=== PATIENT | male | born 1945 | race Caucasian/White ===

== ENCOUNTER 2024-11-09 16:51 | Inpatient (IN) | payer MEDICARE, OTHER, SELFPAY ==
--- NOTE | 2024-11-09 16:57 | CON.CAR ---
Addendum entered and electronically signed by Mitzi Curtis MD 11/09/24 19:59:
I saw and examined the patient.
The [employer]ato Panc[employer] Frier's note was reviewed and I agree with the note.
Comment: Patient is a 79-year-old gentleman with past medical history of hypertension, hyperlipidemia, morbid obesity, type 2 diabetes mellitus, recent admissions to [facility] for hematemesis found to have superficial duodenal ulcers and
Smith's esophagus in September 2024 and for diverticulitis from October 08 until the 04/27/2024 with 3 presentation on November 08, 2024 after being woken up with pressing sensation in the chest and paresthesias. He walked to the bathroom and then
after using the bathroom had a fall and call for help. Given ongoing chest pain he was taken to the emergency room. He was admitted there and treated for a type I NSTEMI with troponin high-sensitivity peaking at 414. He was given 300 mg of Plavix
x 1 on November 08, 2024 and underwent heart catheterization today which revealed multivessel coronary artery disease and is now being transferred here for CABG evaluation. He is currently chest pain-free.
On exam patient is well-appearing, morbidly obese, in no acute distress, regular rate, normal S1 and S2, right radial band is still in place, decreased breath sounds at the bases, otherwise clear, mild JVD, abdomen is obese, soft, nontender,
nondistended with active bowel sounds, warm extremities
Recommendations:
1. Continue treatment for presenting NSTEMI with daily baby aspirin. Given statin allergy, will trial Zetia, beta-evelyn as tolerated.
2. Plavix is on hold and awaiting Plavix washout.
3. CT surgery will be consulted to evaluate for possible CABG.
Mitzi Curtis MD, [facility], [facility]
Original Note:
Consultation
Consultation Request
Date/Time Consultation Requested: 11/09/24
Date/Time Consultation Performed: 11/09/24
Reason for Consultation: Transfer from [facility] for multivessel CAD
Medical History
-
History of Present Illness:
Patient presents to as a transfer from [facility] for evaluation of MV CAD and cardiology has been consulted. Patient was admitted to [facility] 09/2024 with hematemesis and was found to have duodenal ulcers on EGD and evidence of Smith's esophagus at that
time. Patient then had another admission to [facility] but this time for diverticulitis from 10/08/2024 until 10/13/2024 and afterwards went to [facility] and was discharged to home 11/06/2024. Patient says that he was in his apartment and early
yesterday morning at about 3 AM awoke with a pressing sensation on his chest and paresthesias. He ambulated to the bathroom and then after using the bathroom had a fall and called for help. Despite help of bystanders he had 2 more falls before he
finally went to bed and then awoke with ongoing chest pain and was taken to [facility] ER. He was admitted and on ECG there was concern for inferior ST changes and his initial troponin was positive and ultimately peaked at 414 consistent with NSTEMI.
Patient was given Plavix 300 mg p.o. x 1 on 11/08/2024 and then had cardiac catheterization today that revealed MV CAD as noted above. Patient denies chest pain currently and remains on heparin drip. He was transferred to for evaluation for
possible CABG.
PMH:
Recent admission to [facility] for hematemesis and superficial duodenal ulcers 09/2024
Recent admission to [facility] for diverticulitis 10/08/2024 until 10/13/2024
DM2
HTN
Hyperlipidemia
Past Medical History
Past Medical History: Other (in HPI)
Past Surgical History: Orthopedic
Social History
Tobacco: Former Smoker
Alcohol: None
Drug: None
Family History
Family History: Reviewed & Not Pertinent
Allergies / Home Medications
Patient reports allergy to statin medications that they cause hives
Medications at home prior to admission:
Farxiga 5 mg daily
Zetia 10 mg daily
Gemfibrozil 600 mg twice daily
Lisinopril 20 mg daily
Myrbetriq 50 mg daily
Januvia 100 mg daily
Tamsulosin 0.4 mg daily
Melatonin 5 mg at bedtime as needed sleep
Insulin glargine 40 units subcu twice daily
Finasteride 1 mg daily
Insulin aspart unknown dose twice daily
Toprol-XL 50 mg daily
Protonix 40 mg daily
Levaquin 750 mg daily for 7 days initially started on 10/13/2024, should have been completed by now
Metronidazole 500 mg every 8 hours x 7 days that was started on 10/13/2024 and also she has been completed by now
Review of Systems
-
History Source: Patient
All other systems: Negative unless noted
Physical Exam
Vital Signs
GEN: NAD, AAOx3
HEENT: EOMI, MMM
LUNGS: RA. CTA B/L, no wheezes/rales
CV: Reg, S1/S2, no murmur
ABD: soft, BS+, NT, ND
EXT: Right radial band in place. No clubbing, cyanosis, lesions or edema B/L
NEURO: Gross non-focal
SKIN: No rash
Lab Results
Labs 11/08/2024: Hemoglobin 14, WBC 13.5, platelet 214,000
Chemistry BUN 31, creatinine 1.02, sodium 138, potassium 4.5, blood sugar 175
AST 18, ALT 15
Troponin T peak 414
Impression / Plan
-
PCP: Dr. Amando Feliciano
Cardiology: None prior to admission, seen initially by [facility] and then cathed by Dr. Dyllan Fox
Impression:
Admitted to [facility] with chest pain and ACS 11/08/2024
Transferred to for evaluation of MV CAD 11/09/2024
NSTEMI, peak troponin T at [facility] 414
Multivessel CAD by cath 11/09/2024
heavily calcified LAD and 70 to 80% proximal lesion before first septal clay washer and then focal 89% mid LAD lesion, major diagonal with normal flow, OM�160 to 70% lesion that appears to be healed ruptured plaque with normal distal flow appears to
be good surgical target, OM�2 moderate diffuse nonobstructive disease up to 40%, RCA appears to be culprit vessel with complex preocclusive 95% stenosis with clot by cath 11/09/2024
Recent admission to [facility] for hematemesis and superficial duodenal ulcers 09/2024
Recent admission to [facility] for diverticulitis 10/08/2024 until 10/13/2024
DM2
HTN
Hyperlipidemia
Echo 11/08/2024: [facility] study, EF 55 to 60%, normal RV size and function, no AAS, small anterior pericardial effusion with prominent pericardial fat pad
Plan:
-Patient presents to as a transfer from [facility] for evaluation of MV CAD and cardiology has been consulted. Patient was admitted to [facility] 09/2024 with hematemesis and was found to have duodenal ulcers on EGD and evidence of Smith's esophagus at that
time. Patient then had another admission to [facility] but this time for diverticulitis from 10/08/2024 until 10/13/2024 and afterwards went to [facility] and was discharged to home 11/06/2024. Patient says that he was in his apartment and early
yesterday morning at about 3 AM awoke with a pressing sensation on his chest and paresthesias. He ambulated to the bathroom and then after using the bathroom had a fall and called for help. Despite help of bystanders he had 2 more falls before he
finally went to bed and then awoke with ongoing chest pain and was taken to [facility] ER. He was admitted and on ECG there was concern for inferior ST changes and his initial troponin was positive and ultimately peaked at 414 consistent with NSTEMI.
Patient was given Plavix 300 mg p.o. x 1 on 11/08/2024 and then had cardiac catheterization today that revealed MV CAD as noted above. Patient denies chest pain currently and remains on heparin drip. He was transferred to for evaluation for
possible CABG.
-ECG from [facility] reviewed by me and there are inferior ST changes
-Admit to IVU
-Continue heparin drip at current rate
-Radial band remains in place and will continue to monitor and wean as able
-Echo report noted above and will attempt to transfer images
-Cardiac cath report noted above and will attempt to transfer images
-Will ask the CT surgery team to see the patient
-Check hemoglobin A1c
-Patient will be followed with basal bolus insulin
-Check CVE. Patient reports an allergy to statin medications that they cause a rash. Will start Zetia 10 mg daily for now and then likely push to start statin under close supervision.
[2024-11-09 16:58] VITALS: BP 119/90
[2024-11-09 17:07] VITALS: BMI 32.3
--- NOTE | 2024-11-09 17:49 | PTCARENOTE ---
Rec'd pt from [place] awake and alert with Left radial TR band in place. Air removed as per protocol. EKG done. Labs sent. Pt orientated to room 2254. Call peng given. Heparin infusing at 1400 units/hr. See worklist for VS/I and O and assessments.
[2024-11-09 17:52] LABS: % Basophils 0.6 % (0-2); % Immature Granulocytes 0.7 % (0-0.5); % Lymphocytes 40.3 % (20.5-51.1); % Monocytes 10.2 % (1.7-9.3); % Neutrophils 45.2 % (42.2-75.2); Absolute Basophils 0.1 10^3/uL (0-0.2); Absolute Eosinophils 0.3 10^3/uL (0-0.7); Absolute Immature Granulocytes 0.1 10^3/uL (0-0.05); Absolute Lymphocytes 3.6 10^3/uL (1.2-3.4); Absolute Monocytes 0.9 10^3/uL (0.1-0.6); Absolute Neutrophils 4.1 10^3/uL (1.4-6.5); Hemoglobin 13.5 g/dL (13.0-18.0); Mean Corp Hgb Conc. 32.9 g/dL (33.0-37.0); Mean Corpuscular Hgb 28.8 pg (27.0-31.0); Mean Corpuscular Volume 87.6 fL (80.0-94.0); Mean Platelet Volume 9.5 fL (7.4-10.4); Nucleated Red Blood Cells % 0 % (-); Platelet Count 226 10^3/uL (130-400); Red Blood Cell Count 4.68 10^6/uL (4.70-6.10)
--- NOTE | 2024-11-09 17:57 | CONSULT.CT ---
Consultation
-
Date/Time Consultation Requested: 11/09/24 1745
Date/Time Consultation Performed: 11/09/24 1800
Requesting Provider: Anu NOVOA
Performing Provider: Paulina SINGER for Olivia JEAN
Reason for Consultation: CABG eval
Patient History
Physicians
Family Physician: Dr. Drummond
Outpatient Pedicab Driver: None
Inpatient Pedicab Driver: Dr. Fox
History of Present Illness
79-year-old male with past medical history of type 2 diabetes, HTN, HLD, recent duodenal ulcers and diverticulitis transferred from [facility] for evaluation of multivessel coronary disease. Of note patient has multiple recent admissions to
[facility] starts on 10/08 when he was found to have diverticulitis and was discharged to a group home facility on 11/06. However patient said on the night of 11/07 patient woke up early in the morning with a pressing sensation on his
chest he ambulated to the bathroom and fell multiple times. He was taken to [facility]'s emergency room where they found inferior ST changes and elevated troponins. He was given 300 mg of Plavix p.o. on 11/08 and was taken to the cardiac
Accounting Intern today on 11/09. Left heart cath revealed multivessel disease and patient was transferred to [facility] for CABG evaluation.
Recent admission to [facility] for hematemesis and superficial duodenal ulcers 09/2024
Recent admission to [facility] for diverticulitis 10/08/2024 until 10/13/2024
Past Medical History
Past Medical History: CAD, HTN, Hypercholesterolemia, NIDDM and MN
Diverticulitis
Duodenal ulcers
Past Surgical History
Past Surgical History: Appendectomy, Orthopedic, Tonsilectomy and Urological (TURP)
Family History
Mother: Cause of ([place])
Father: Cause of ([place])
Family Medical History: CAD
Social History
Alcohol: None
Drug: None
Tobacco: Former Smoker
Personal:
Living: Assisted Living
Employment: Retired
Allergies
Allergy/AdvReac Type Severity Reaction Status Date / Time
Uupxqiz-[id number] Reductase Allergy Hives Verified 11/09/24 17:34
Inhibitor
Home Medications
Medications at home prior to admission:
Farxiga 5 mg daily
Zetia 10 mg daily
Gemfibrozil 600 mg twice daily
Lisinopril 20 mg daily
Myrbetriq 50 mg daily
Januvia 100 mg daily
Tamsulosin 0.4 mg daily
Melatonin 5 mg at bedtime as needed sleep
Insulin glargine 40 units subcu twice daily
Finasteride 1 mg daily
Insulin aspart unknown dose twice daily
Toprol-XL 50 mg daily
Protonix 40 mg daily
Levaquin 750 mg daily for 7 days initially started on 10/13/2024, should have been completed by now
Metronidazole 500 mg every 8 hours x 7 days that was started on 10/13/2024 and also she has been completed by now
Review of Systems
-
History Source: Patient
General: Reports No Symptoms
HEENT: Reports No Symptoms
Respiratory: Reports SOB
Cardiac: Reports Chest Pain
Abdomen/GI: Reports No Symptoms
: Reports No Symptoms
Musculoskeletal: Reports No Symptoms
Skin: Reports No Symptoms
Neurological: Reports No Symptoms
Vascular: Reports No Symptoms
Physical Exam
Vital Signs
Temp 97.5 F 11/09/24 16:59
Temp route: Oral 11/09/24 16:59
Pulse 63 11/09/24 17:00
Rhythm: Normal sinus rhythm 11/09/24 17:15
Resp Rate 18 11/09/24 16:59
Blood pressure 119/90 11/09/24 16:58
Blood pressure extremity used: Right upper arm 11/09/24 16:59
Position: Lying 11/09/24 16:59
MAP (cuff-Dee Dee Monitor) 99 11/09/24 16:58
SaO2 97 11/09/24 17:46
Oxygen Mode of Delivery Room air 11/09/24 17:46
Actual Weight 85.275 kg 11/09/24 17:07
Body Mass Index (BMI) 32.3 11/09/24 17:07
Labs
11/09/24 17:41
Exam
General: Well Developed, Well Nourished, No Apparent Distress and Comfortable
HEENT: Normocephalic
Respiratory: Clear
Cardiac: S1/S2
GI: Soft and Non Distended
Rectal: Deferred by Provider
Skin: Warm
Neuro: AO x 3 and No Motor Deficits
Extremities: Pulses (+1 b/L)
Lymph: No Lymphadenopathy
Psych: Calm
Assessment / Plan
-
79-year-old male with past medical history of was transferred to [facility] on 11/09 for CABG evaluation.
#CAD
-Patient's case will be discussed with attending physician. Further details regarding surgical timing intervention will be determined after attending physicians full evaluation
-Routine preoperative cardiothoracic surgery orders will be initiated.
-STS risk stratification score will be calculated after preoperative testing is complete
-Continue nitroglycerin and heparin gtt per cardiology
#History of duodenal ulcers
-Continue Protonix
[2024-11-09 18:12] LABS: ALT (SGPT) 18 U/L (0-50); AST (SGOT) 34 U/L (17-59); Albumin 4.4 g/dl (3.5-5.0); Alkaline Phosphatase 87 U/L (38-126); Blood Urea Nitrogen 26 mg/dl (9-20); Calcium 8.9 mg/dl (8.4-10.2); Carbon Dioxide 25 mmol/L (22-30); Chloride 100 mmol/L (98-107); Estimated Creatinine Clearance 75 ml/min; Glucose 132 mg/dl (70-99); Potassium 3.5 mmol/L (3.5-5.1); Sodium 136 mmol/L (135-145); Total Bilirubin 0.6 mg/dl (0.2-1.3); Total Protein 7.3 g/dl (6.3-8.2); eGFR > 60.00
--- NOTE | 2024-11-09 18:27 | HPS.HSE ---
Family Physician
-
Family Physician: Amando Feliciano, DO
Chief Complaint
-
chest pain
History of Present Illness
Patient is a 79-year-old male with past medical history significant for hypertension, hyperlipemia, DM II, diverticulitis, GI bleed , duodenal ulcer, hiatal hernia, Smith's esophagus, history of falls, BPH and obesity who was transferred to
[facility] from [place] today. Patient presented to [place] with non-radiating chest pains that was intermittent for >12 hours and was found to have elevated troponin and EKG concerning for STEMI. [place] took patient to circus laborer
today and found to have multi vessel disease in the setting of diabetes. Patient transferred for CABG workup, it is noted if not a surgical candidate they would consider PCI of right and LAD. Patient denies any recent illness, cough, shortness of
breathe, nausea, vomiting, constipation, diarrhea or urinary symptoms.
Medical History
Past Medical History
Past Medical History: Reports Other
Additional Past Medical History:
hypertension
hyperlipemia
DM II
diverticulitis
GI bleed
duodenal ulcer
hiatal hernia
Smith's esophagus
history of falls
BPH
obesity
Past Surgical History: Reports Other
Additional Past Surgical History:
Cardiac cath
appendectomy
tonsillectomy
TURP
Social History
Tobacco: Former Smoker (quit 43 years ago, has 44 pack year history)
Alcohol: None
Drug: None
Personal:
Living: Alone
Employment: Retired
Family History
Family History: Not pertinent
Allergies / Home Medications
Allergies reflects when Allergies were last updated in [employer].
Home Medications with original date entered in [employer]
Allergy/Medication List:
Allergies
Allergy/AdvReac Type Severity Reaction Status Date / Time
Penicillins Allergy Hives Verified 11/09/24 18:42
Iqzwfbr-BYU-NnJ Reductase Allergy Hives Verified 11/09/24 17:34
Inhibitor
Home Medications
dapagliflozin propanediol 5 mg tablet 5 mg PO DAILY 11/09/24
ezetimibe 10 mg tablet 10 mg PO 11/09/24
finasteride 1 mg tablet 1 mg PO DAILY 11/09/24
gemfibrozil 600 mg tablet 600 mg PO BID 11/09/24
insulin aspart U-100 100 unit/mL (3 mL) subcutaneous pen 0 sliding scale dose SC BID 11/09/24
insulin glargine 100 unit/mL subcutaneous solution 40 unit SC BID 11/09/24
lisinopril 20 mg tablet 20 mg PO DAILY 11/09/24
melatonin 5 mg tablet 5 mg PO HS PRN sleep 11/09/24
metoprolol succinate 50 mg tablet,extended release 24 hr 50 mg PO DAILY 11/09/24
mirabegron 50 mg tablet,extended release 24 hr 50 mg PO DAILY 11/09/24
pantoprazole 20 mg tablet,delayed release 40 mg PO DAILY 11/09/24
sitagliptin phosphate 100 mg tablet 100 mg PO DAILY 11/09/24
tamsulosin 0.4 mg capsule 0.4 mg PO DAILY 11/09/24
Review of Systems
-
History Source: Patient
Constitutional: Reports No Symptoms
EENT: Reports No Symptoms
Respiratory: Reports No Symptoms
Cardiac: Reports Chest Pain; Denies Diaphoresis, Palpitations or Syncope
Abdomen/GI: Reports No Symptoms
: Reports No Symptoms
Musculoskeletal: Reports No Symptoms
Skin: Reports No Symptoms
Neurological: Reports No Symptoms
Endocrine: Reports No Symptoms
Hematologic/Lymphatic: Reports No Symptoms
Psych: Reports No Symptoms
Physical Exam
Vital Signs
Vital Signs
Temp Pulse Resp BP Pulse Ox
97.5 F 63 18 119/90 97
11/09/24 16:59 11/09/24 17:00 11/09/24 16:59 11/09/24 16:58 11/09/24 17:46
Physical Exam
General: Well Developed, Well Nourished, No Apparent Distress, Comfortable, Conversant and Obese
HEENT: NormoCephalic, Moist mucous membranes, Atraumatic, PERRLA, Evan Conjunctivae, Nose Appears Normal and Ears Appear Normal
Respiratory: Clear and Decreased Breath Sounds
Cardiac: S1/S2 and Regular Rhythm; No Murmur, Rub or Gallop
Breast: Deferred by me
GI: Soft, Non Tender, Non Distended and Normal Bowel Sounds; No Organomegaly
Rectal: Deferred by Provider
Genito-urinary: Deferred by me
Musculoskeletal: No Clubbing, No Cyanosis and No Edema
Skin: Warm and IV/Catheter Site; No Rash
Neuro: Awake, Alert, AO x 3 and Nonfocal/grossly intact
Hematologic/Lymphatic: No Lymphadenopathy
Psych: Calm and Intact Judgment/Insight
Laboratory Results
-
11/09/24 17:41
11/09/24 17:41
Laboratory Results
Total Bilirubin 0.6 mg/dl (0.2-1.3) 11/09/24 17:41
AST 34 U/L (17-59) 11/09/24 17:41
ALT 18 U/L (0-50) 11/09/24 17:41
Alkaline Phosphatase 87 U/L (38-126) 11/09/24 17:41
Troponin I 1.140 ng/ml H* 11/09/24 17:41
Data Reviewed
-
Medical Tests (Nuc Med, Echo, EKG etc): Report Reviewed by me (reports in chart from [facility])
Lab Data: Labs Reviewed by me
Impression/Plan
-
IMPRESSION/PLAN:
#NSTEMI
Multivessel CAD by cath 11/09/2024
heavily calcified LAD and 70 to 80% proximal lesion before first septal roving carrier and then focal 89% mid LAD lesion, major diagonal with normal flow, OM�160 to 70% lesion that appears to be healed ruptured plaque with normal distal flow appears to
be good surgical target, OM�2 moderate diffuse nonobstructive disease up to 40%, RCA appears to be culprit vessel with complex preocclusive 95% stenosis with clot by cath 11/09/2024
- Admit to IVU
- Consult CT surgery
- Heparin gtt
- trend troponin with EKG
#hypertension
- continue lisinopril, and metoprolol
#hyperlipemia
- continue ezetimibe, and gemfibrozil
#DM II
- AccuChecks AC & HS
- SSI
- hold metformin
- continue Farxiga, insulin glargine, and sitagliptin
#BPH
- continue finasteride, mirabegron and tamsulosin
#obesity
BMI 32.3
- encourage balanced lifestyle of diet and exercise
- affects all aspects of care
#history of falls
- fall precautions
- PT consult
#GI bleed
#duodenal ulcer
- continue pantoprazole
#diverticulitis
#hiatal hernia
#Smith's esophagus
Code Status: Full Code
DVT Prophylaxis: Heparin gtt
[2024-11-09 20:55] LABS: APTT 70.6 Sec (23.4-35.0)
[2024-11-09 21:29] LABS: Glucose - Point of Care 182 mg/dl (70-99)
[2024-11-09] MEDS: LOPID 600 MG PO (21:36)
[2024-11-09] MEDS: ZETIA 10 MG PO (21:45)
[2024-11-09] MEDS: LANTUS 0.4 UNITS SC (21:45)
[2024-11-09 23:01] VITALS: BP 133/71
[2024-11-10] VITALS (7 sets, daily range): BP systolic 90–148; BP diastolic 55–90; BMI 31.2
--- NOTE | 2024-11-10 01:25 | PTCARENOTE ---
Received patient at change of shift. SR on the monitor, HR in the 60s. TR band removed from R radial and dressing applied. Dressing CDI, no evidence of hematoma. No complaints from pt at this time, call peng within reach.
[2024-11-10 04:38] LABS: Hematocrit 41.8 % (39.0-52.0); Mean Corp Hgb Conc. 33.5 g/dL (33.0-37.0); Mean Corpuscular Volume 86.5 fL (80.0-94.0); Mean Platelet Volume 9.6 fL (7.4-10.4); Platelet Count 236 10^3/uL (130-400); Red Blood Cell Count 4.83 10^6/uL (4.70-6.10); Red Cell Dist. Width 13.7 % (11.5-14.5); White Blood Cell Count 8.6 10^3/uL (4.8-10.8)
[2024-11-10 04:55] LABS: INR 1.03
[2024-11-10 04:57] LABS: APTT 85.8 Sec (23.4-35.0)
[2024-11-10 05:05] LABS: ALT (SGPT) 16 U/L (0-50); AST (SGOT) 31 U/L (17-59); Albumin 4.4 g/dl (3.5-5.0); Alkaline Phosphatase 97 U/L (38-126); Blood Urea Nitrogen 25 mg/dl (9-20); Calcium 9.3 mg/dl (8.4-10.2); Carbon Dioxide 22 mmol/L (22-30); Chloride 102 mmol/L (98-107); Direct Bilirubin 0.4 mg/dl (0.0-0.4); Estimated Creatinine Clearance 74 ml/min; Glucose 131 mg/dl (70-99); HDL Cholesterol 48 mg/dl; LDL Cholesterol, Calculated 93 mg/dl; Potassium 3.8 mmol/L (3.5-5.1); Sodium 137 mmol/L (135-145); Total Bilirubin 0.5 mg/dl (0.2-1.3); Total Cholesterol 175 mg/dl (50-199); Total Protein 7.1 g/dl (6.3-8.2); Triglyceride 170 mg/dl (10-149); Very Low Density Lipoprotein 34 mg/dl (0-30); eGFR > 60.00
[2024-11-10] MEDS: HEPARIN 25000 UNITS/250 ML IV ×2 (07:25→22:32)
[2024-11-10 08:06] LABS: Glucose - Point of Care 159 mg/dl (70-99)
[2024-11-10] MEDS: NOVOLOG FLEXPEN-LOW RESISTANCE 1 UNITS SC (08:47)
[2024-11-10] MEDS: ZESTRIL 20 MG PO (08:48)
[2024-11-10] MEDS: JANUVIA 100 MG PO (08:48)
[2024-11-10] MEDS: TOPROL XL 50 MG PO (08:48)
[2024-11-10] MEDS: PROTONIX 40 MG PO (08:48)
[2024-11-10] MEDS: LANTUS 0.4 UNITS SC ×2 (08:50→20:09)
[2024-11-10] MEDS: LOPID 600 MG PO ×2 (08:50→20:09)
[2024-11-10] MEDS: FARXIGA 5 MG PO (08:51)
[2024-11-10] MEDS: LOW STRENGTH ASPIRIN 81 MG PO (08:51)
--- NOTE | 2024-11-10 10:22 | W.PN.HOSP.TC ---
Today's Communication/Plan
-
Heparin drip.
Assessment / Plan
Assessment / Plan
Physical Exam
General: Well Developed, Well Nourished, No Apparent Distress, Comfortable, Conversant and Obese
HEENT: NormoCephalic, Moist mucous membranes, Atraumatic, PERRLA, [place] Conjunctivae, Nose Appears Normal and Ears Appear Normal
Respiratory: Clear and Decreased Breath Sounds
Cardiac: S1/S2 and Regular Rhythm; No Murmur, Rub or Gallop
Breast: Deferred by me
GI: Soft, Non Tender, Non Distended and Normal Bowel Sounds; No Organomegaly
Rectal: Deferred by Provider
Genito-urinary: Deferred by me
Musculoskeletal: No Clubbing, No Cyanosis and No Edema
Skin: Warm and IV/Catheter Site; No Rash
Neuro: Awake, Alert, AO x 3 and Nonfocal/grossly intact
Hematologic/Lymphatic: No Lymphadenopathy
Psych: Calm and Intact Judgment/Insight
A/P:
#NSTEMI
Multivessel CAD by cath 11/09/2024
heavily calcified LAD and 70 to 80% proximal lesion before first septal toe stapler and then focal 89% mid LAD lesion, major diagonal with normal flow, OM�160 to 70% lesion that appears to be healed ruptured plaque with normal distal flow appears to
be good surgical target, OM�2 moderate diffuse nonobstructive disease up to 40%, RCA appears to be culprit vessel with complex preocclusive 95% stenosis with clot by cath 11/09/2024 - Admit to IVU
- Consult CT surgery
- Heparin gtt
- trend troponin with EKG
-Plan for CT surgery evaluation and Plavix washout for potential CABG next week.
#hypertension
- continue lisinopril, and metoprolol
#hyperlipemia
- continue ezetimibe, and gemfibrozil
#DM II
- AccuChecks AC & HS
- SSI
- hold metformin
- continue Farxiga, insulin glargine, and sitagliptin
-Blood sugar today 117 early afternoon
#BPH
- continue finasteride, mirabegron and tamsulosin
#obesity
BMI 32.3
- encourage balanced lifestyle of diet and exercise
- affects all aspects of care
#history of falls
- fall precautions
- PT consult
#GI bleed
#duodenal ulcer
- continue pantoprazole
#diverticulitis
#hiatal hernia
#Smith's esophagus
Code Status: Full Code
DVT Prophylaxis: Heparin gtt
Time spent 55-minutes
Anticipated Discharge: > 48 hours
Subjective/Interval History
-
Date of Service: November 10, 2024
No chest pain or shortness of breath. Mild headache
Objective Data
-
Labs:
Laboratory Results
11/10/24 11/10/24
04:16 10:30
WBC 8.6
Hgb 14.0
Hct 41.8
Plt Count 236
PT 14.0
INR 1.03
APTT 85.8 H Pending
Sodium 137
Potassium 3.8
Chloride 102
Carbon Dioxide 22
BUN 25 H
Creatinine 0.8
Glucose 131 H
Calcium 9.3
Total Bilirubin 0.5
AST 31
ALT 16
Alkaline Phosphatase 97
Vital Signs:
Vital Signs
Temp Pulse Resp BP Pulse Ox
97.7 F 72 20 140/84 98
11/10/24 06:56 11/10/24 08:00 11/10/24 06:56 11/10/24 06:58 11/10/24 06:56
I&O
11/09/24 11/10/24 11/11/24
06:59 06:59 06:59
Intake Total 250 / 250 180 / 180
Output Total 100 / 100
Balance 150 / 150 180 / 180
[2024-11-10] MEDS: TYLENOL 650 MG PO (11:14)
[2024-11-10 11:32] LABS: Glycohemoglobin (HgbA1c) 8.5 % (4.0-5.6)
--- NOTE | 2024-11-10 11:35 | CM ---
Reviewed chart. Met with Mr. Antoine to review discharge plans. He states prior to admission he resides alone in a second floor apartment in [facility]. Pankaj has an elevator to take him to the second floor. He states prior to admission
he ambulates with a rolling walker. He states he has two rolling walker, one with a tray. He states he goes to the dinning room for his meals which in on the first floor. He also states there is Occupational and Physical therapy in the building
on the third floor. He states he has had [facility] in the past. He states he has a prescription plan with [employer] and uses [employer] [facility]. He sometimes uses [facility]. He has four sons but one one resides in [place]. Medical
work-up in progress. The discharge plan is to return home when medically stable.
[2024-11-10 12:00] LABS: APTT 104.7 Sec (23.4-35.0)
--- NOTE | 2024-11-10 12:01 | W.PN.CARDCBS ---
Addendum entered and electronically signed by Gen Estes MD 11/10/24 12:42:
I saw and examined the patient.
The FLIGHT TEST DATA ACQUISITION TECHNICIAN or PA's note was reviewed and I agree with the note.
Comment: General: Well developed, well nourished in NAD.
Neck: Supple, no JVD, HJR, carotids +2 B/L, no bruits bilaterally.
Heart: Non displaced PMI, RRR, no murmurs, No S3, S4, no rubs.
Lungs: Clear to auscultation bilaterally, no wheeze, rhonchi, rubs bilaterally,
normal expiratory phase.
Extremities: No clubbing, cyanosis or edema bilaterally.
Neuro: Grossly nonfocal, awake, alert and oriented x3.
No chest pain. Await CT surgery evaluation and Plavix washout for potential CABG next week. Continue IV heparin. Consider diabetic FLIGHT TEST DATA ACQUISITION TECHNICIAN consult
Original Note:
Today's Communication / Plan
-
plavix washout
CT surg eval underway
CP free on IV heparin, asa, toprol, lisinopril, zetia
would consider diabetic FLIGHT TEST DATA ACQUISITION TECHNICIAN consult
Impression / Plan
-
PCP: Dr. Amando Feliciano
Cardiology: None prior to admission, seen initially by [facility] and then cathed by Dr. Dyllan Fox
Impression:
Admitted to [facility] with chest pain and ACS 11/08/2024
Transferred to for evaluation of MV CAD 11/09/2024
NSTEMI, peak troponin T at [facility] 414
Multivessel CAD by cath 11/09/2024
heavily calcified LAD and 70 to 80% proximal lesion before first septal cardiograph operator and then focal 89% mid LAD lesion, major diagonal with normal flow, OM�160 to 70% lesion that appears to be healed ruptured plaque with normal distal flow appears to
be good surgical target, OM�2 moderate diffuse nonobstructive disease up to 40%, RCA appears to be culprit vessel with complex preocclusive 95% stenosis with clot by cath 11/09/2024
Recent admission to [facility] for hematemesis and superficial duodenal ulcers 09/2024
Recent admission to [facility] for diverticulitis 10/08/2024 until 10/13/2024
DM2
HTN
Hyperlipidemia
Echo 11/08/2024: [facility] study, EF 55 to 60%, normal RV size and function, no , small anterior pericardial effusion with prominent pericardial fat pad
Plan:
-Patient admitted to [facility] with chest pain and NSTEMI. Cath revealed multivessel CAD and was transferred to [facility] 11/09/24 for CABG evaluation
-Patient feeling well overnight without current chest pain or shortness of breath
-Awaiting Plavix washout
-CT surgical eval underway
-continue IV heparin, asa
-R wrist site c/d/i
-continue toprol, lisinopril
-hgbA1c 8.5%. needs improved diabetic control. would consider diabetic FLIGHT TEST DATA ACQUISITION TECHNICIAN consult
-LDL 93. reports allergy to statins with reaction of rash. continue zetia. consider retrial of statin while admitted
-d/w CT surgical FLIGHT TEST DATA ACQUISITION TECHNICIAN
PREADMIT DATA:
-Patient presents to as a transfer from [facility] for evaluation of MV CAD and cardiology has been consulted. Patient was admitted to [facility] 09/2024 with hematemesis and was found to have duodenal ulcers on EGD and evidence of Smith's esophagus at that
time. Patient then had another admission to [facility] but this time for diverticulitis from 10/08/2024 until 10/13/2024 and afterwards went to [facility] and was discharged to home 11/06/2024. Patient says that he was in his apartment and early
yesterday morning at about 3 AM awoke with a pressing sensation on his chest and paresthesias. He ambulated to the bathroom and then after using the bathroom had a fall and called for help. Despite help of bystanders he had 2 more falls before he
finally went to bed and then awoke with ongoing chest pain and was taken to [facility] ER. He was admitted and on ECG there was concern for inferior ST changes and his initial troponin was positive and ultimately peaked at 414 consistent with NSTEMI.
Patient was given Plavix 300 mg p.o. x 1 on 11/08/2024 and then had cardiac catheterization today that revealed MV CAD as noted above. Patient denies chest pain currently and remains on heparin drip. He was transferred to for evaluation for
possible CABG.
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
Subjective
Date of Service: November 10, 2024
no CP, SOB. awaiting CABG
Objective
Labs:
11/10/24 04:16
11/10/24 04:16
Labs
Hgb 14.0 g/dL (13.0-18.0) 11/10/24 04:16
Hct 41.8 % (39.0-52.0) 11/10/24 04:16
Plt Count 236 10^3/uL (130-400) 11/10/24 04:16
PT 14.0 Sec (11.4-14.6) 11/10/24 04:16
INR 1.03 11/10/24 04:16
APTT Cancelled 11/10/24 10:48
Sodium 137 mmol/L (135-145) 11/10/24 04:16
Potassium 3.8 mmol/L (3.5-5.1) 11/10/24 04:16
BUN 25 mg/dl (9-20) H 11/10/24 04:16
Creatinine 0.8 mg/dL (0.7-1.3) 11/10/24 04:16
Glucose 131 mg/dl (70-99) H 11/10/24 04:16
Troponins
11/09/24 11/09/24 11/09/24
17:41 20:36 23:12
Troponin I 1.140 H* 1.080 H* 1.050 H*
Vital Signs and I&O:
Vital Signs
Temp Pulse Resp BP Pulse Ox
97.6 F 68 18 111/70 96
11/10/24 10:55 11/10/24 11:45 11/10/24 10:55 11/10/24 10:54 11/10/24 10:55
Vital Signs
Temp Pulse Resp BP Pulse Ox
97.6 F 68 18 111/70 96
11/10/24 10:55 11/10/24 11:45 11/10/24 10:55 11/10/24 10:54 11/10/24 10:55
Intake & Output
11/08/24 11/09/24 11/10/24 11/11/24
07:59 07:59 07:59 07:59
Intake Total 250 / 250 180 / 180
Output Total 100 / 100
Balance 150 / 150 180 / 180
Physical Exam
Physical Exam
GEN: No distress, awake, alert, oriented x3
HEENT: supple, anicteric, mmm, eomi
LUNGS: CTA B/L, no wheezes/rales
CV: Reg, S1/S2, no murmur
ABD: soft, BS+, NT/ND
EXT: No cyanosis, clubbing, edema
NEURO: Gross non-focal
SKIN: Warm, pink, dry. No rash. R wrist site c/d/i
[2024-11-10 12:38] LABS: Glucose - Point of Care 117 mg/dl (70-99)
[2024-11-10] MEDS: NOVOLOG FLEXPEN-LOW RESISTANCE SC ×2 (12:45→17:34)
[2024-11-10 17:26] LABS: Glucose - Point of Care 102 mg/dl (70-99)
--- NOTE | 2024-11-10 18:28 | PTCARENOTE ---
Pt OOB to chair with one assist, pt walks with an unsteady gait and has a history of many falls. Pt c/o discomfort in his buttock from his last fall relieved with tylenol. Fall precautions in place.Heparin infusion is therapeutic. Telemetry shows
sinus rhythm.
[2024-11-10 20:08] LABS: Glucose - Point of Care 155 mg/dl (70-99)
--- NOTE | 2024-11-10 20:29 | PTCARENOTE ---
pt. received at change of shift. pt seen and assessed in room. AOx3, tele reading NSR. heparin gtt running at 1500units/hr, next PTT with AM labs. plan of care explained to patient, pt. verbalizes understanding. fall risk precautions in place. call
peng within reach. continuing to monitor at this time
[2024-11-10 21:43] LABS: Glucose - Point of Care 138 mg/dl (70-99)
[2024-11-10] MEDS: FLOMAX 0.4 MG PO (22:32)
[2024-11-10] MEDS: MYRBETRIQ EXTENDED RELEASE 50 MG PO (22:32)
[2024-11-10] MEDS: ZETIA 10 MG PO (22:32)
[2024-11-11] VITALS (9 sets, daily range): BP systolic 95–132; BP diastolic 58–85; BMI 31.2
[2024-11-11 03:58] LABS: Hematocrit 38.6 % (39.0-52.0); Hemoglobin 13.3 g/dL (13.0-18.0); Mean Corp Hgb Conc. 34.5 g/dL (33.0-37.0); Mean Corpuscular Hgb 29.4 pg (27.0-31.0); Mean Corpuscular Volume 85.2 fL (80.0-94.0); Mean Platelet Volume 9.4 fL (7.4-10.4); Platelet Count 233 10^3/uL (130-400); Red Blood Cell Count 4.53 10^6/uL (4.70-6.10); Red Cell Dist. Width 13.6 % (11.5-14.5)
[2024-11-11 04:23] LABS: APTT 186.8 Sec (23.4-35.0)
[2024-11-11 04:52] LABS: Blood Urea Nitrogen 31 mg/dl (9-20); Calcium 9.2 mg/dl (8.4-10.2); Carbon Dioxide 20 mmol/L (22-30); Chloride 103 mmol/L (98-107); Estimated Creatinine Clearance 59 ml/min; Glucose 67 mg/dl (70-99); Sodium 138 mmol/L (135-145); eGFR > 60.00
[2024-11-11 08:21] LABS: Glucose - Point of Care 112 mg/dl (70-99)
[2024-11-11] MEDS: NOVOLOG FLEXPEN-LOW RESISTANCE SC ×2 (08:37→16:59)
[2024-11-11] MEDS: FARXIGA 5 MG PO (08:37)
[2024-11-11] MEDS: LOW STRENGTH ASPIRIN 81 MG PO (08:38)
[2024-11-11] MEDS: JANUVIA 100 MG PO (08:38)
[2024-11-11] MEDS: PROTONIX 40 MG PO (08:38)
[2024-11-11] MEDS: LANTUS 0.4 UNITS SC ×2 (08:38→21:15)
[2024-11-11] MEDS: ZESTRIL 20 MG PO (08:38)
[2024-11-11] MEDS: LOPID 600 MG PO ×2 (08:38→19:48)
[2024-11-11] MEDS: TOPROL XL 50 MG PO (08:39)
--- NOTE | 2024-11-11 08:42 | W.PN.CARDCBS ---
Today's Communication / Plan
-
Stable cardiology status awaiting CABG
Continue IV heparin
Impression / Plan
-
PCP: Dr. Amando Feliciano
Cardiology: None prior to admission, seen initially by [facility] and then cathed by Dr. Dyllan Fox
Impression:
Admitted to [facility] with chest pain and ACS 11/08/2024
Transferred to for evaluation of MV CAD 11/09/2024
NSTEMI, peak troponin T at [facility] 414
Multivessel CAD by cath 11/09/2024
heavily calcified LAD and 70 to 80% proximal lesion before first septal master planner and then focal 89% mid LAD lesion, major diagonal with normal flow, OM�160 to 70% lesion that appears to be healed ruptured plaque with normal distal flow appears to
be good surgical target, OM�2 moderate diffuse nonobstructive disease up to 40%, RCA appears to be culprit vessel with complex preocclusive 95% stenosis with clot by cath 11/09/2024
Recent admission to [facility] for hematemesis and superficial duodenal ulcers 09/2024
Recent admission to [facility] for diverticulitis 10/08/2024 until 10/13/2024
DM2
HTN
Hyperlipidemia
Echo 11/08/2024: [facility] study, EF 55 to 60%, normal RV size and function, no , small anterior pericardial effusion with prominent pericardial fat pad
Plan:
Remains pain-free
Continue IV heparin
Eventual CABG and date to be decided by CT surgery
PREADMIT DATA:
-Patient presents to as a transfer from [facility] for evaluation of MV CAD and cardiology has been consulted. Patient was admitted to [facility] 09/2024 with hematemesis and was found to have duodenal ulcers on EGD and evidence of Smith's esophagus at that
time. Patient then had another admission to [facility] but this time for diverticulitis from 10/08/2024 until 10/13/2024 and afterwards went to [facility] and was discharged to home 11/06/2024. Patient says that he was in his apartment and early
yesterday morning at about 3 AM awoke with a pressing sensation on his chest and paresthesias. He ambulated to the bathroom and then after using the bathroom had a fall and called for help. Despite help of bystanders he had 2 more falls before he
finally went to bed and then awoke with ongoing chest pain and was taken to [facility] ER. He was admitted and on ECG there was concern for inferior ST changes and his initial troponin was positive and ultimately peaked at 414 consistent with NSTEMI.
Patient was given Plavix 300 mg p.o. x 1 on 11/08/2024 and then had cardiac catheterization today that revealed MV CAD as noted above. Patient denies chest pain currently and remains on heparin drip. He was transferred to for evaluation for
possible CABG.
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
Subjective
Date of Service: November 11, 2024
No complaints
Objective
Labs:
11/11/24 03:46
11/11/24 03:46
Labs
Hgb 13.3 g/dL (13.0-18.0) 11/11/24 03:46
Hct 38.6 % (39.0-52.0) L 11/11/24 03:46
Plt Count 233 10^3/uL (130-400) 11/11/24 03:46
PT 14.0 Sec (11.4-14.6) 11/10/24 04:16
INR 1.03 11/10/24 04:16
APTT 186.8 Sec (23.4-35.0) H* 11/11/24 03:46
Sodium 138 mmol/L (135-145) 11/11/24 03:46
Potassium 4.0 mmol/L (3.5-5.1) 11/11/24 03:46
BUN 31 mg/dl (9-20) H 11/11/24 03:46
Creatinine 1.0 mg/dL (0.7-1.3) 11/11/24 03:46
Glucose 67 mg/dl (70-99) L 11/11/24 03:46
Troponins
11/09/24 11/09/24 11/09/24
17:41 20:36 23:12
Troponin I 1.140 H* 1.080 H* 1.050 H*
Vital Signs and I&O:
Vital Signs
Temp Pulse Resp BP Pulse Ox
97.7 F 70 18 120/58 93
11/11/24 08:19 11/11/24 08:39 11/11/24 08:19 11/11/24 08:39 11/11/24 08:19
Vital Signs
Temp Pulse Resp BP Pulse Ox
97.7 F 70 18 120/58 93
11/11/24 08:19 11/11/24 08:39 11/11/24 08:19 11/11/24 08:39 11/11/24 08:19
Intake & Output
11/09/24 11/10/24 11/11/24 11/12/24
06:59 06:59 06:59 06:59
Intake Total 250 / 250 715 / 715
Output Total 100 / 100 600 / 600
Balance 150 / 150 115 / 115
Physical Exam
Physical Exam
General: Well developed, well nourished in NAD.
Neck: Supple, no JVD, HJR, carotids +2 B/L, no bruits bilaterally.
Heart: Non displaced PMI, RRR, no murmurs, No S3, S4, no rubs.
Lungs: Clear to auscultation bilaterally, no wheeze, rhonchi, rubs bilaterally,
normal expiratory phase.
Extremities: No clubbing, cyanosis or edema bilaterally.
Neuro: Grossly nonfocal, awake, alert and oriented x3.
--- NOTE | 2024-11-11 09:56 | W.PN.HOSP.TC ---
Today's Communication/Plan
-
Heparin drip and ACS protocol.
Assessment / Plan
Assessment / Plan
Physical Exam
General: Well Developed, Well Nourished, No Apparent Distress, Comfortable, Conversant and Obese
HEENT: NormoCephalic, Moist mucous membranes, Atraumatic, PERRLA, [place] Conjunctivae, Nose Appears Normal and Ears Appear Normal
Respiratory: Clear and Decreased Breath Sounds
Cardiac: S1/S2 and Regular Rhythm; No Murmur, Rub or Gallop
Breast: Deferred by me
GI: Soft, Non Tender, Non Distended and Normal Bowel Sounds; No Organomegaly
Rectal: Deferred by Provider
Genito-urinary: Deferred by me
Musculoskeletal: No Clubbing, No Cyanosis and No Edema
Skin: Warm and IV/Catheter Site; No Rash
Neuro: Awake, Alert, AO x 3 and Nonfocal/grossly intact
Hematologic/Lymphatic: No Lymphadenopathy
Psych: Calm and Intact Judgment/Insight
A/P:
#NSTEMI
Multivessel CAD by cath 11/09/2024
heavily calcified LAD and 70 to 80% proximal lesion before first septal manager location and then focal 89% mid LAD lesion, major diagonal with normal flow, OM�160 to 70% lesion that appears to be healed ruptured plaque with normal distal flow appears to
be good surgical target, OM�2 moderate diffuse nonobstructive disease up to 40%, RCA appears to be culprit vessel with complex preocclusive 95% stenosis with clot by cath 11/09/2024 - Admit to IVU
- Consult CT surgery
- Heparin gtt
- trend troponin with EKG
-Plan for CT surgery evaluation and Plavix washout for potential CABG next week.
#hypertension
- continue lisinopril, and metoprolol
#hyperlipemia
- continue ezetimibe, and gemfibrozil
#DM II
- AccuChecks AC & HS
- SSI
- hold metformin
- continue Farxiga, insulin glargine, and sitagliptin
-Blood sugar today 117 early afternoon
#BPH
- continue finasteride, mirabegron and tamsulosin
#obesity
BMI 32.3
- encourage balanced lifestyle of diet and exercise
- affects all aspects of care
#history of falls
- fall precautions
- PT consult
#GI bleed
#duodenal ulcer
- continue pantoprazole
#diverticulitis
#hiatal hernia
#Smith's esophagus
Code Status: Full Code
DVT Prophylaxis: Heparin gtt
Time spent 55-minutes
Anticipated Discharge: > 48 hours
Subjective/Interval History
-
Date of Service: November 11, 2024
Patient denies any chest pain or shortness of breath
Objective Data
-
Labs:
Laboratory Results
11/11/24 11/11/24
03:46 11:30
WBC 10.0
Hgb 13.3
Hct 38.6 L
Plt Count 233
APTT 186.8 H* Pending
Sodium 138
Potassium 4.0
Chloride 103
Carbon Dioxide 20 L
BUN 31 H
Creatinine 1.0
Glucose 67 L
Calcium 9.2
Vital Signs:
Vital Signs
Temp Pulse Resp BP Pulse Ox
97.7 F 70 18 120/58 93
11/11/24 08:19 11/11/24 08:39 11/11/24 08:19 11/11/24 08:39 11/11/24 08:19
I&O
11/10/24 11/11/24 11/12/24
06:59 06:59 06:59
Intake Total 250 / 250 715 / 715 360 / 360
Output Total 100 / 100 600 / 600
Balance 150 / 150 115 / 115 360 / 360
[2024-11-11 11:48] LABS: Glucose - Point of Care 194 mg/dl (70-99)
[2024-11-11 12:08] LABS: APTT 104.6 Sec (23.4-35.0)
[2024-11-11] MEDS: NOVOLOG FLEXPEN-LOW RESISTANCE 1 UNITS SC (12:27)
[2024-11-11] MEDS: DESENEX/MITRAZOL/ZEASORB 1 APPLIC TOPICAL ×2 (14:32→19:48)
[2024-11-11 15:45] LABS: Urine Albumin Negative (Neg - Trace); Urine Bilirubin Negative (Negative); Urine Character Clear (Clear); Urine Color Yellow; Urine Glucose 3+ (Negative); Urine Ketone Negative (Negative); Urine Leukocyte Trace (Negative); Urine Nitrite Negative (Negative); Urine Occult Blood Negative (Negative); Urine Specific Gravity 1.015 (<1.030); Urine Urobilinogen Negative (Neg - 1+)
[2024-11-11 16:05] LABS: Urine Bacteria Few (Negative)
[2024-11-11 16:56] LABS: Glucose - Point of Care 103 mg/dl (70-99)
--- NOTE | 2024-11-11 17:30 | W.PN.UPDATE ---
Update Note
Progress Note Update
STS RISK SCORE
Procedure Type:�Isolated CABG
PERIOPERATIVE OUTCOME ESTIMATE %
Operative Mortality 2.35%
Morbidity & Mortality 8.72%
Stroke 1.36%
Renal Failure 1.86%
Reoperation 1.63%
Prolonged Ventilation 4.77%
Deep Sternal Wound Infection 0.392%
Long Hospital Stay (>14 days) 6.65%
Short Hospital Stay (<6 days)* 34.1%
Clinical Summary
Planned Surgery: Isolated CABG, Urgent, First cardiovascular surgery
Demographics: 79 year old, White, male, 85.2kg, 163cm, BMI: 32.1 kg/m�
Lab Values: Creatinine: 1 mg/dL, Hematocrit: 38.6%, WBC Count: 10 10�/�L, Platelet Count: 955699 cells/�L
PreOp Medications: Insulin diabetes control
Substance Abuse: Never smoker
Risk Factors / Comorbidities: Insulin-dependent Diabetes Mellitus, Hypertension, Family Hx of CAD
Pulmonary RF: Moderate CLD
Cardiac Status: NYHA Class II, Ejection Fraction = 57%
Coronary Artery Disease: 3 vessels diseased, Proximal LAD Stenosis >=70%, Non-ST Elevation WA, WA: 8 to 21 Days
Valve Disease: Mild MR, Trivial/Trace TR
[2024-11-11 18:04] LABS: APTT 84.7 Sec (23.4-35.0)
[2024-11-11] MEDS: HEPARIN 25000 UNITS/250 ML IV (18:16)
[2024-11-11] MEDS: TYLENOL 650 MG PO (19:46)
[2024-11-11] MEDS: MYRBETRIQ EXTENDED RELEASE 50 MG PO (21:07)
[2024-11-11] MEDS: FLOMAX 0.4 MG PO (21:07)
[2024-11-11] MEDS: ZETIA 10 MG PO (21:07)
[2024-11-11 21:10] LABS: Glucose - Point of Care 120 mg/dl (70-99)
--- NOTE | 2024-11-12 02:48 | PTCARENOTE ---
Assumed care of the patient @1900. Pt AAOx3 SR on the monitor VSS. Hep gtt infusing per protocol. Fall precautions maintained uses call peng appropriately prior to ambulation.
[2024-11-12 03:28] VITALS: BP 107/64
[2024-11-12 03:30] VITALS: BMI 31.3
[2024-11-12 04:04] LABS: % Basophils 0.8 % (0-2); % Eosinophils 4.8 % (0-6); % Immature Granulocytes 0.8 % (0-0.5); % Lymphocytes 37.5 % (20.5-51.1); % Monocytes 11.4 % (1.7-9.3); % Neutrophils 44.7 % (42.2-75.2); Absolute Basophils 0.1 10^3/uL (0-0.2); Absolute Eosinophils 0.4 10^3/uL (0-0.7); Absolute Immature Granulocytes 0.1 10^3/uL (0-0.05); Absolute Lymphocytes 3.3 10^3/uL (1.2-3.4); Absolute Neutrophils 3.9 10^3/uL (1.4-6.5); Hematocrit 39.4 % (39.0-52.0); Hemoglobin 13.1 g/dL (13.0-18.0); Mean Corp Hgb Conc. 33.2 g/dL (33.0-37.0); Mean Corpuscular Hgb 28.9 pg (27.0-31.0); Mean Platelet Volume 9.6 fL (7.4-10.4); Nucleated Red Blood Cells % 0 % (-); Platelet Count 259 10^3/uL (130-400); Red Blood Cell Count 4.53 10^6/uL (4.70-6.10); Red Cell Dist. Width 13.8 % (11.5-14.5); White Blood Cell Count 8.7 10^3/uL (4.8-10.8)
[2024-11-12 04:13] LABS: APTT 114.2 Sec (23.4-35.0)
[2024-11-12 04:23] LABS: Blood Urea Nitrogen 28 mg/dl (9-20); Calcium 9.7 mg/dl (8.4-10.2); Carbon Dioxide 24 mmol/L (22-30); Chloride 103 mmol/L (98-107); Estimated Creatinine Clearance 59 ml/min; Glucose 63 mg/dl (70-99); Potassium 3.9 mmol/L (3.5-5.1); Sodium 139 mmol/L (135-145); eGFR > 60.00
--- NOTE | 2024-11-12 04:49 | W.PN.CT ---
Today's Communication / Plan
-
Plan:
-Cont. current medical management per primary team
-Cont. current meds (ASA, Heparin gtt, Toprol XL, Zetia, Lisinopril, Farxiga and other diabetic meds)
-Will need to d/c Lisinopril x 48hrs prior to OR if deemed a surgical candidate; Avoid NOAH-I/ARBs x 48hrs prior to OR
-Plavix washout, last dose 11/08/24; will need at least 5 days of washout
-Ongoing preop workup/evaluation
-Dr. East to see
Assessment / Plan
-
Assessment:
-Severe 3v CAD
-NSTEMI (high-sensitivity trop of 414 @ [facility])
-[place]
-Plavix loaded, 11/08/24
-LVEF 55-60% per echo @ [facility]
-HTN
-HLD (statin intolerance)
-T2DM (on insulin, hgb A1C 8.5)
-Class 1 obesity (BMI 31.1)
-Recent GI bleed (Duodenal ulcer), 09/2024
-Diverticulitis, 10/08/24
-Hiatal hernia
-Barrettes esophagus
-Fatty liver, per CT 11/10/24
-Mild-mod emphysema, per CT 11/10/24
-Mild bronchiectasis, per CT 11/10/24
-Mild interstitial lung disease, per CT 11/10/24
-Recent hx of fall
-BPH (on flomax and finasteride)
-S/P appendectomy
Discussed patient care with: Cardiology, Nursing, Pharmacy and Care Team
Subjective
-
Date of Service: November 12, 2024
No issues overnight. Denies CP/SOB. States he has some left side of body pain from fall
Objective Data
-
Lab Results
11/12/24 03:37
11/12/24 03:37
PT 14.0 Sec (11.4-14.6) 11/10/24 04:16
INR 1.03 11/10/24 04:16
APTT 114.2 Sec (23.4-35.0) H 11/12/24 03:37
Vital Signs
Vital Signs
Temp Pulse Resp BP Pulse Ox
98.3 F 65 16 107/64 100
11/12/24 03:28 11/12/24 03:28 11/11/24 22:52 11/12/24 03:28 11/12/24 03:28
CT Intake/Output/Weight
11/11/24 11/11/24 11/12/24
06:59 18:59 06:59
Intake Total 115 / 715 1487 / 1487
Output Total 600 / 600
Balance -485 / 115 1487 / 1487
SaO2: 100 (RA)
Physical Exam
-
General: Awake, Oriented and AOx3
Cardiovascular: Regular rate & rhythm and No Murmurs
Respiratory: Clear
Extremities: No Edema
Data Reviewed
-
Lab Results: Results Reviewed
Medications: Active Meds Reviewed
Chest X-Ray: Report Reviewed and Image Reviewed
ECG: Report Reviewed and Image Reviewed
[2024-11-12 05:31] LABS: Magnesium 2.2 mg/dl (1.6-2.3)
[2024-11-12 05:51] LABS: Glucose - Point of Care 76 mg/dl (70-99)
--- NOTE | 2024-11-12 05:55 | GLUCOSE ---
SITUATION: Blood glucose 63
BACKGROUND: NSTEMI
ASSESSMENT: 4 oz OJ given
RECOMMENDATION:Repeat blood sugar 15 minutes later 76.
[2024-11-12 07:24] VITALS: BP 111/69
[2024-11-12 07:43] LABS: Glucose - Point of Care 87 mg/dl (70-99)
[2024-11-12] MEDS: NOVOLOG FLEXPEN-LOW RESISTANCE SC ×2 (08:24→12:30)
[2024-11-12] MEDS: PROTONIX 40 MG PO (08:25)
[2024-11-12] MEDS: LOPID 600 MG PO ×2 (08:25→21:21)
[2024-11-12] MEDS: JANUVIA 100 MG PO (08:25)
[2024-11-12] MEDS: ZESTRIL PO (08:26)
[2024-11-12] MEDS: LOW STRENGTH ASPIRIN 81 MG PO (08:26)
[2024-11-12] MEDS: LANTUS 0.4 UNITS SC ×2 (08:26→21:21)
[2024-11-12] MEDS: TOPROL XL 50 MG PO (08:26)
[2024-11-12] MEDS: DESENEX/MITRAZOL/ZEASORB 1 APPLIC TOPICAL ×2 (08:27→21:22)
[2024-11-12] MEDS: KCL 20 MEQ PO (08:29)
--- NOTE | 2024-11-12 08:35 | W.PN.HOSP.TC ---
Today's Communication/Plan
-
ACS protocol. Plan for CABG
Assessment / Plan
Assessment / Plan
Physical Exam
General: Well Developed, Well Nourished, No Apparent Distress, Comfortable, Conversant and Obese
HEENT: NormoCephalic, Moist mucous membranes, Atraumatic, PERRLA, [place] Conjunctivae, Nose Appears Normal and Ears Appear Normal
Respiratory: Clear and Decreased Breath Sounds
Cardiac: S1/S2 and Regular Rhythm; No Murmur, Rub or Gallop
Breast: Deferred by me
GI: Soft, Non Tender, Non Distended and Normal Bowel Sounds; No Organomegaly
Rectal: Deferred by Provider
Genito-urinary: Deferred by me
Musculoskeletal: No Clubbing, No Cyanosis and No Edema
Skin: Warm and IV/Catheter Site; No Rash
Neuro: Awake, Alert, AO x 3 and Nonfocal/grossly intact
Hematologic/Lymphatic: No Lymphadenopathy
Psych: Calm and Intact Judgment/Insight
A/P:
#NSTEMI
Multivessel CAD by cath 11/09/2024
heavily calcified LAD and 70 to 80% proximal lesion before first septal post closing specialist and then focal 89% mid LAD lesion, major diagonal with normal flow, OM�160 to 70% lesion that appears to be healed ruptured plaque with normal distal flow appears to
be good surgical target, OM�2 moderate diffuse nonobstructive disease up to 40%, RCA appears to be culprit vessel with complex preocclusive 95% stenosis with clot by cath 11/09/2024 - Admit to IVU
- Consult CT surgery
- Heparin gtt
- trend troponin with EKG
-Plan for CT surgery evaluation and Plavix washout for potential CABG next week.
#hypertension
- continue lisinopril, and metoprolol
#hyperlipemia
- continue ezetimibe, and gemfibrozil
#DM II
- AccuChecks AC & HS
- SSI
- hold metformin
- continue Farxiga, insulin glargine, and sitagliptin
-Blood sugar today 117 early afternoon
#BPH
- continue finasteride, mirabegron and tamsulosin
#obesity
BMI 32.3
- encourage balanced lifestyle of diet and exercise
- affects all aspects of care
#history of falls
- fall precautions
- PT consult
#GI bleed
#duodenal ulcer
- continue pantoprazole
#diverticulitis
#hiatal hernia
#Smith's esophagus
Code Status: Full Code
DVT Prophylaxis: Heparin gtt
Anticipated Discharge: > 48 hours
Subjective/Interval History
-
Date of Service: November 12, 2024
Denies chest pain or shortness of breath today
Objective Data
-
Labs:
Laboratory Results
11/12/24 11/12/24
03:37 10:30
WBC 8.7
Hgb 13.1
Hct 39.4
Plt Count 259
APTT 114.2 H Pending
Sodium 139
Potassium 3.9
Chloride 103
Carbon Dioxide 24
BUN 28 H
Creatinine 1.0
Glucose 63 L
Calcium 9.7
Vital Signs:
Vital Signs
Temp Pulse Resp BP Pulse Ox
97.6 F 59 20 111/69 96
11/12/24 07:22 11/12/24 07:24 11/12/24 07:22 11/12/24 07:24 11/12/24 07:22
I&O
11/11/24 11/12/24 11/13/24
06:59 06:59 06:59
Intake Total 715 / 715 1487 / 1487
Output Total 600 / 600
Balance 115 / 115 1487 / 1487
--- NOTE | 2024-11-12 08:41 | W.PN.UPDATE ---
Update Note
Progress Note Update
Farxiga and Lisinopril on hold in preparation for CT surgery this week.
--- NOTE | 2024-11-12 09:49 | PTCARENOTE ---
Assumed care of pt from night RN. Pt received awake and alert, sitting up in bed. VSS, CM shows NSR 60's, POX 96% on RA. Heparin drip infusing at 1200 units/hr through RFA. Pt remains on Fall risk precautions, assisted to BR with walker. He
denies any CP or discomfort.
[2024-11-12 11:14] LABS: APTT 70.2 Sec (23.4-35.0)
[2024-11-12 11:58] VITALS: BP 102/62
[2024-11-12 12:17] LABS: Glucose - Point of Care 133 mg/dl (70-99)
[2024-11-12] MEDS: HEPARIN 25000 UNITS/250 ML IV (15:13)
[2024-11-12 15:52] VITALS: BP 108/65
[2024-11-12 17:03] LABS: Glucose - Point of Care 163 mg/dl (70-99)
[2024-11-12] MEDS: NOVOLOG FLEXPEN-LOW RESISTANCE 1 UNITS SC (17:51)
[2024-11-12 18:24] LABS: APTT 79.5 Sec (23.4-35.0)
[2024-11-12 19:19] VITALS: BP 106/69
[2024-11-12 21:18] LABS: Glucose - Point of Care 159 mg/dl (70-99)
[2024-11-12] MEDS: FLOMAX 0.4 MG PO (21:21)
[2024-11-12] MEDS: MYRBETRIQ EXTENDED RELEASE 50 MG PO (21:21)
[2024-11-12] MEDS: ZETIA 10 MG PO (21:21)
[2024-11-12 23:19] VITALS: BP 137/75
[2024-11-12] MEDS: TYLENOL 650 MG PO (23:29)
[2024-11-13 00:14] LABS: APTT 67.3 Sec (23.4-35.0)
--- NOTE | 2024-11-13 02:52 | PTCARENOTE ---
Assumed care of the pt @ 1900. Pt AAOx3 SR on the monitor VSS. Heparin gtt infusing per protocol. 1 person assist with walker to bathroom. Call peng within reach.
[2024-11-13 03:41] VITALS: BP 110/93
[2024-11-13 03:42] VITALS: BMI 31.2
--- NOTE | 2024-11-13 04:40 | W.PN.CT ---
Today's Communication / Plan
-
Plan:
-Cont. current medical management per primary team
-Cont. current meds (ASA, Heparin gtt, Toprol XL, Zetia, diabetic meds; Farxiga and Lisinopril placed on hold for possible CABG)
-Farxiga and Lisinopril currently placed on hold for possible CABG. Avoid NOAH-I/ARBs x 48hrs prior to OR, avoid SGLT2 inhibitors 72hrs prior to OR
-Plavix washout, last dose 11/08/24; will need at least 5 days of washout
-Ongoing preop workup/evaluation
-Dr. East to see
Assessment / Plan
-
Assessment:
-Severe 3v CAD
-NSTEMI (high-sensitivity trop of 414 @ [facility])
-[place]
-Plavix loaded, 11/08/24
-LVEF 55-60% per echo @ [facility]
-HTN
-HLD (statin intolerance)
-T2DM (on insulin, hgb A1C 8.5)
-Class 1 obesity (BMI 31.1)
-Recent GI bleed (Duodenal ulcer), 09/2024
-Diverticulitis, 10/08/24
-Hiatal hernia
-Barrettes esophagus
-Fatty liver, per CT 11/10/24
-Mild-mod emphysema, per CT 11/10/24
-Mild bronchiectasis, per CT 11/10/24
-Mild interstitial lung disease, per CT 11/10/24
-Recent hx of fall
-BPH (on flomax and finasteride)
-S/P appendectomy
Discussed patient care with: Cardiology, Nursing, Pharmacy and Care Team
Subjective
-
Date of Service: November 13, 2024
No issues overnight. Denies CP/SOB. C/O left side of body pain from recent fall @ home
Objective Data
-
PT 14.0 Sec (11.4-14.6) 11/10/24 04:16
INR 1.03 11/10/24 04:16
APTT 67.3 Sec (23.4-35.0) H 11/12/24 23:39
Vital Signs
Vital Signs
Temp Pulse Resp BP Pulse Ox
97.6 F 63 18 108/65 97
11/13/24 03:40 11/12/24 23:19 11/13/24 03:40 11/12/24 15:52 11/13/24 03:40
SaO2: 97 (RA)
Physical Exam
-
General: Awake, Oriented and AOx3
Cardiovascular: Regular rate & rhythm, No Murmurs, No Rub and No Gallop
Respiratory: Clear
Extremities: No Edema
Data Reviewed
-
Lab Results: Results Reviewed
Medications: Active Meds Reviewed
Chest X-Ray: Report Reviewed and Image Reviewed
ECG: Report Reviewed and Image Reviewed
[2024-11-13 06:45] LABS: Hematocrit 38.3 % (39.0-52.0); Hemoglobin 12.7 g/dL (13.0-18.0); Mean Corp Hgb Conc. 33.2 g/dL (33.0-37.0); Mean Corpuscular Hgb 29.1 pg (27.0-31.0); Mean Corpuscular Volume 87.6 fL (80.0-94.0); Mean Platelet Volume 9.6 fL (7.4-10.4); Platelet Count 278 10^3/uL (130-400); Red Blood Cell Count 4.37 10^6/uL (4.70-6.10); Red Cell Dist. Width 13.7 % (11.5-14.5); White Blood Cell Count 7.8 10^3/uL (4.8-10.8)
[2024-11-13] MEDS: HEPARIN 25000 UNITS/250 ML IV (07:01)
[2024-11-13 07:02] LABS: APTT 109.9 Sec (23.4-35.0)
[2024-11-13 07:15] LABS: Blood Urea Nitrogen 28 mg/dl (9-20); Calcium 9.6 mg/dl (8.4-10.2); Carbon Dioxide 22 mmol/L (22-30); Chloride 103 mmol/L (98-107); Estimated Creatinine Clearance 54 ml/min; Glucose 73 mg/dl (70-99); Potassium 4.4 mmol/L (3.5-5.1); Sodium 138 mmol/L (135-145); eGFR > 60.00
[2024-11-13 08:00] VITALS: BP 122/70
[2024-11-13 08:04] LABS: Glucose - Point of Care 77 mg/dl (70-99)
[2024-11-13] MEDS: LOPID 600 MG PO ×2 (08:05→21:30)
[2024-11-13] MEDS: TYLENOL 650 MG PO (08:05)
[2024-11-13] MEDS: LOW STRENGTH ASPIRIN 81 MG PO (08:05)
[2024-11-13] MEDS: PROTONIX 40 MG PO (08:05)
[2024-11-13] MEDS: NOVOLOG FLEXPEN-LOW RESISTANCE SC ×2 (08:06→16:45)
[2024-11-13] MEDS: LANTUS 0.4 UNITS SC (08:06)
[2024-11-13] MEDS: DESENEX/MITRAZOL/ZEASORB 1 APPLIC TOPICAL ×2 (08:06→21:30)
[2024-11-13] MEDS: JANUVIA 100 MG PO (08:06)
[2024-11-13] MEDS: TOPROL XL 50 MG PO (08:06)
--- NOTE | 2024-11-13 08:40 | W.PN.CARDCBS ---
Addendum entered and electronically signed by Gen Estes MD 11/13/24 09:15:
I saw and examined the patient.
The CLINICAL COUNSELOR or PA's note was reviewed and I agree with the note.
Comment: General: Well developed, well nourished in NAD.
Neck: Supple, no JVD, HJR, carotids +2 B/L, no bruits bilaterally.
Heart: Non displaced PMI, RRR, no murmurs, No S3, S4, no rubs.
Lungs: Scattered rhonchi
Extremities: No clubbing, cyanosis or edema bilaterally.
Neuro: Grossly nonfocal, awake, alert and oriented x3.
Stable cardiology status. Await Plavix washout and timing of CABG. Continue IV heparin
Original Note:
Today's Communication / Plan
-
Continue aspirin,
Lisinopril, farxiga on hold
Plavix washout
Eventual CABG, timing TBD.
Impression / Plan
-
PCP: Dr. Amando Feliciano
Cardiology: None prior to admission, seen initially by [facility] and then cathed by Dr. Dyllan Fox
Impression:
Admitted to [facility] with chest pain and ACS 11/08/2024
Transferred to for evaluation of MV CAD 11/09/2024
NSTEMI, peak troponin T at [facility] 414
Multivessel CAD by cath 11/09/2024
heavily calcified LAD and 70 to 80% proximal lesion before first septal axminster weaver and then focal 89% mid LAD lesion, major diagonal with normal flow, OM�160 to 70% lesion that appears to be healed ruptured plaque with normal distal flow appears to
be good surgical target, OM�2 moderate diffuse nonobstructive disease up to 40%, RCA appears to be culprit vessel with complex preocclusive 95% stenosis with clot by cath 11/09/2024
Recent admission to [facility] for hematemesis and superficial duodenal ulcers 09/2024
Recent admission to [facility] for diverticulitis 10/08/2024 until 10/13/2024
DM2
HTN
Hyperlipidemia
Echo 11/08/2024: [facility] study, EF 55 to 60%, normal RV size and function, no , small anterior pericardial effusion with prominent pericardial fat pad
Plan:
-Presented as transfer from [facility] for evaluation of MV CAD. CT surgical eval ongoing.
-Remains chest pain free. Continues on IV heparin given NSTEMI on presentation to [facility].
-Continue aspirin 81mg daily. Plavix washing out, last dose 11/08/2024.
-BP stable on Toprol.
-Lisinopril and Farxiga on hold pre-op.
-Continue Zetia. LDL 93. Reported history of rash w/ statins. Consider retrial while admitted. May consider PCSK9 inhibitor as OP.
-Hgb A1c 8.5%. Continue tight DM control.
-Eventual CABG timing TBD by CT surgery.
HPI: Patient presents to as a transfer from [facility] for evaluation of MV CAD and cardiology has been consulted. Patient was admitted to [facility] 09/2024 with hematemesis and was found to have duodenal ulcers on EGD and evidence of Smith's esophagus at
that time. Patient then had another admission to [facility] but this time for diverticulitis from 10/08/2024 until 10/13/2024 and afterwards went to [facility] and was discharged to home 11/06/2024. Patient says that he was in his apartment and early
yesterday morning at about 3 AM awoke with a pressing sensation on his chest and paresthesias. He ambulated to the bathroom and then after using the bathroom had a fall and called for help. Despite help of bystanders he had 2 more falls before he
finally went to bed and then awoke with ongoing chest pain and was taken to [facility] ER. He was admitted and on ECG there was concern for inferior ST changes and his initial troponin was positive and ultimately peaked at 414 consistent with NSTEMI.
Patient was given Plavix 300 mg p.o. x 1 on 11/08/2024 and then had cardiac catheterization today that revealed MV CAD as noted above. Patient denies chest pain currently and remains on heparin drip. He was transferred to for evaluation for
possible CABG.
Progress Note - Windows Consultant
Subjective
Date of Service: November 13, 2024
No complaints.
Objective
Labs:
11/13/24 06:30
11/13/24 06:30
Labs
Hgb 12.7 g/dL (13.0-18.0) L 11/13/24 06:30
Hct 38.3 % (39.0-52.0) L 11/13/24 06:30
Plt Count 278 10^3/uL (130-400) 11/13/24 06:30
PT 14.0 Sec (11.4-14.6) 11/10/24 04:16
INR 1.03 11/10/24 04:16
APTT 109.9 Sec (23.4-35.0) H 11/13/24 06:30
Sodium 138 mmol/L (135-145) 11/13/24 06:30
Potassium 4.4 mmol/L (3.5-5.1) 11/13/24 06:30
BUN 28 mg/dl (9-20) H 11/13/24 06:30
Creatinine 1.1 mg/dL (0.7-1.3) 11/13/24 06:30
Glucose 73 mg/dl (70-99) 11/13/24 06:30
Vital Signs and I&O:
Vital Signs
Temp Pulse Resp BP Pulse Ox
97.5 F 70 18 122/70 96
11/13/24 07:59 11/13/24 08:00 11/13/24 07:59 11/13/24 08:00 11/13/24 07:59
Vital Signs
Temp Pulse Resp BP Pulse Ox
97.5 F 70 18 122/70 96
11/13/24 07:59 11/13/24 08:00 11/13/24 07:59 11/13/24 08:00 11/13/24 07:59
Intake & Output
11/11/24 11/12/24 11/13/24 11/14/24
06:59 06:59 06:59 06:59
Intake Total 715 / 715 1487 / 1487
Output Total 600 / 600
Balance 115 / 115 1487 / 1487
Physical Exam
Physical Exam
GEN: No distress, awake, alert, oriented x3
HEENT: supple, anicteric, mmm
LUNGS: CTA b/l, no wheezes/rales
CV: Reg, S1/S2, no murmur
EXT: No clubbing, cyanosis, or edema
NEURO: Gross non-focal
SKIN: Warm, dry, no rash
--- NOTE | 2024-11-13 10:05 | PTCARENOTE ---
Rec'd pt at handoff. AOX3. Tele- SR. Assessment completed as documented. Heparin gtt infusing at 14 ml/hr. Pt reports no CP. Pt does complain of headache and requests Tylenol. Tylenol administered and pt reports relief. Call ginette w/in reach.
--- NOTE | 2024-11-13 10:16 | W.PN.HOSP.TC ---
Today's Communication/Plan
-
continue current care
ongoing CABG eval and planning
Assessment / Plan
Assessment / Plan
#NSTEMI
Multivessel CAD by cath 11/09/2024
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
be good surgical target, OM�2 moderate diffuse nonobstructive disease up to 40%, RCA appears to be culprit vessel with complex preocclusive 95% stenosis with clot by cath 11/09/2024 - Admit to IVU
- Heparin gtt
- trend troponin with EKG
- Plan for CT surgery evaluation and Plavix washout for potential CABG this week, CTS following and to finalize plan
#Essential hypertension
-Lisinopril held as part of pre-op need
#hyperlipemia
- continue ezetimibe, and gemfibrozil
#DM II
- AccuChecks AC & HS
- SSI
- hold metformin and dapagliflozin
- insulin glargine, and sitagliptin
#BPH
- continue finasteride, mirabegron and tamsulosin
#obesity
BMI 32.3
- encourage balanced lifestyle of diet and exercise
- affects all aspects of care
#history of falls
- fall precautions
- PT consult
#GI bleed
#duodenal ulcer
- continue pantoprazole
#diverticulitis
#hiatal hernia
#Smith's esophagus
Code Status: Full Code
DVT Prophylaxis: Heparin gtt
Anticipated Discharge: 24 - 48 hours
Subjective/Interval History
-
Date of Service: November 13, 2024
no complains overnight
denies of having chest pain
Objective Data
-
Labs:
Laboratory Results
11/12/24 11/13/24 11/13/24
23:39 06:30 12:30
WBC 7.8
Hgb 12.7 L
Hct 38.3 L
Plt Count 278
APTT 67.3 H 109.9 H Pending
Sodium 138
Potassium 4.4
Chloride 103
Carbon Dioxide 22
BUN 28 H
Creatinine 1.1
Glucose 73
Calcium 9.6
Vital Signs:
Vital Signs
Temp Pulse Resp BP Pulse Ox
97.5 F 70 18 122/70 96
11/13/24 07:59 11/13/24 08:00 11/13/24 07:59 11/13/24 08:00 11/13/24 08:00
I&O
11/12/24 11/13/24 11/14/24
06:59 06:59 06:59
Intake Total 1487 / 1487 500 / 500
Balance 1487 / 1487 500 / 500
Review of Systems
-
Respiratory: Reports No Symptoms
Cardiac: Reports No Symptoms
Abdomen/GI: Reports No Symptoms
Physical Exam
-
General: No Apparent Distress and Comfortable
HEENT: Negative Oxygen
Respiratory: Clear to Auscultation
Cardiac: Regular Rhythm and S1/S2; Negative Murmur or Rub
GI: Soft, Nontender and Nondistended
Musculoskeletal: No Edema
Neuro: Awake, Alert, Oriented, No Motor Deficits and Nonfocal/Grossly Intact
Psych: Calm
[2024-11-13 11:18] VITALS: BP 113/74
[2024-11-13 11:40] LABS: Glucose - Point of Care 198 mg/dl (70-99)
[2024-11-13] MEDS: NOVOLOG FLEXPEN-LOW RESISTANCE 1 UNITS SC (11:41)
[2024-11-13 12:42] LABS: APTT 99.8 Sec (23.4-35.0)
--- NOTE | 2024-11-13 14:02 | CM ---
Chart reviewed. Patient is independent of ADLS, lives alone in a 2nd floor apartment in [facility], elevator access, ambulates with a RW. Patient is current with [facility] and PT. Patient is going for a CABG 11/14/24. Reviewed preoperative and
postoperative instructions and restrictions, along with showering guidelines. Patient is agreeable to a home visit by CT Transitional RN. Plan is for the patient to go with home with CT Transitional RN and then resume [facility] PT after. CM to follow
[2024-11-13 15:05] VITALS: BP 108/79
[2024-11-13 16:43] LABS: Glucose - Point of Care 131 mg/dl (70-99)
--- NOTE | 2024-11-13 20:00 | PTCARENOTE ---
Assumed care of the at 1900. AOx3, cooperative, no acute complaints. SR-SB on tele, no edema noted, +1, heart tones audible. Lungs diminished at the bases, occasional nonproductive cough, RA. Abdomen NT, obese, +BS, incont BM smear noted.
Intermittent urinary incontinence per patient, asking to use commode PRN without issues, voiding without difficulty. Perineal skin blanchable red, macerated, Desenex powder applied as well as barrier ointment to medial upper thighs. Education
regarding skin integrity and mitigation strategies discussed. Patient indicated understanding. Initial CHG bed bath provided. New gown and linens applied. Patient OOB asstx1 with walker. See nursing work list for additional intervention details.
[2024-11-13 21:02] VITALS: BP 142/77
[2024-11-13 21:28] LABS: Glucose - Point of Care 196 mg/dl (70-99)
[2024-11-13] MEDS: FLOMAX 0.4 MG PO (21:30)
[2024-11-13] MEDS: ZETIA 10 MG PO (21:30)
[2024-11-13] MEDS: MYRBETRIQ EXTENDED RELEASE 50 MG PO (21:34)
[2024-11-13] MEDS: LANTUS SC (21:34)
[2024-11-13] MEDS: LANTUS 0.2 UNITS SC (22:54)
[2024-11-14] VITALS (12 sets, daily range): BP systolic 101–125; BP diastolic 63–83; BMI 30.9
--- NOTE | 2024-11-14 | PTCARENOTE ---
Patient sleeping between care, no acute issues. Assessment unchanged.
[2024-11-14] MEDS: HEPARIN 25000 UNITS/250 ML IV (01:00)
[2024-11-14 04:31] LABS: Hematocrit 39.5 % (39.0-52.0); Mean Corp Hgb Conc. 32.9 g/dL (33.0-37.0); Mean Corpuscular Volume 88.2 fL (80.0-94.0); Mean Platelet Volume 9.6 fL (7.4-10.4); Platelet Count 313 10^3/uL (130-400); Red Blood Cell Count 4.48 10^6/uL (4.70-6.10); Red Cell Dist. Width 13.9 % (11.5-14.5); White Blood Cell Count 8.3 10^3/uL (4.8-10.8)
[2024-11-14 04:43] LABS: APTT 111.8 Sec (23.4-35.0)
[2024-11-14 04:53] LABS: Blood Urea Nitrogen 25 mg/dl (9-20); Calcium 9.9 mg/dl (8.4-10.2); Carbon Dioxide 26 mmol/L (22-30); Chloride 102 mmol/L (98-107); Estimated Creatinine Clearance 59 ml/min; Glucose 138 mg/dl (70-99); Potassium 4.7 mmol/L (3.5-5.1); Sodium 139 mmol/L (135-145); eGFR > 60.00
--- NOTE | 2024-11-14 05:00 | PTCARENOTE ---
Patient prepped for OR. Cleansed a second time with CHG and then wiped with CHG cloths. Linens and gown changed. Patient made comfortable, settled back into bed, VSS, no acute complaints. Awaiting OR call.
[2024-11-14] MEDS: LOPRESSOR 25 MG PO (05:01)
[2024-11-14] MEDS: MAGNESIUM OXIDE 500 MG PO (05:01)
[2024-11-14] MEDS: BACTROBAN 2% OINTMENT 1 APPLIC NASAL ×2 (05:01→19:16)
[2024-11-14] MEDS: PROTONIX 40 MG PO (05:01)
--- NOTE | 2024-11-14 06:12 | W.CVOR.SURPR ---
CVOR Surgeon Immed Pre Op
-
I have examined this patient prior to performance of the scheduled procedure.
The patient's condition is unchanged from the time of the dictated/written History and
Physical and the patient is able to undergo the scheduled procedure.
I had a long conversation with Mr. Bry Antoine at his bedside yesterday afternoon. We reviewed his coronary pathology, discussed the proposed operative interventions, reviewed the periprocedural risks (including, but not limited to, , stroke,
FL, arrhythmia, PNA, DAVIDA/F, bleeding, and infection), discussed expected in-hospital postprocedural course and the potential need for rehab placement on discharge given his baseline functional status. We also discussed the longer term outpatient
recovery. It is my belief he will benefit from surgical coronary revascularization anticipate CHEMO to LAD, greater saphenous vein to OM, greater saphenous vein to distal RCA post the crux. His RCA/PDA and posterior lateral vessels are somewhat
small. We also briefly discussed alternative options including PCI/stenting, but given his GI bleeding history and other comorbidities, I believe avoiding longer-term DAPT is prudent. We also discussed the possibility of concurrent ELAA based on
intraoperative assessment of his WILLIS morphology.
Thank you for the opportunity to participate in the care of this kind gentleman.
Eyal East MD
[phone]
--- NOTE | 2024-11-14 07:51 | CM ---
Reviewed chart. Mr. Antoine is in the operating room today. Prior to admission he resides alone in a second floor apartment at [facility]. He has an elevator to get to the second floor. Prior to admission he ambulates with a rolling walker and
independent with adls. He has two rolling walkers one with a tray. He has Physical and Occupational therapy in his building on the third floor. He has had [facility] in the past. He has a prescription plan with [facility] and uses [facility] mail
[facility], [facility]. He sometimes uses [facility]. He has four sons but only one resides in [place]. Medical work-up in progress. The discharge plan is to return home with a home visit by the Transitional Care Nurse when medically stable.
--- NOTE | 2024-11-14 10:00 | PTCARENOTE ---
Assumed care of patient. Pt assessed while he was lying in the bed. Pt alert and oriented x4. Assisted to the commode with 1 assist and rolling walker. NSR on tele. BP 125/73. POX 99% on RA. Heparin gtt infusing per protocol. Pt awaiting CVOR.
[2024-11-14] MEDS: LOW STRENGTH ASPIRIN PO (10:42)
[2024-11-14] MEDS: NOVOLOG FLEXPEN-LOW RESISTANCE SC ×2 (10:42→16:11)
[2024-11-14] MEDS: JANUVIA PO (10:42)
[2024-11-14] MEDS: LOPID PO (10:42)
[2024-11-14] MEDS: DESENEX/MITRAZOL/ZEASORB TOPICAL (10:42)
[2024-11-14] MEDS: LANTUS SC (10:42)
[2024-11-14] MEDS: PROTONIX PO (10:43)
[2024-11-14] MEDS: TOPROL XL PO (10:43)
[2024-11-14 11:59] LABS: ACT+ - POC 115 Seconds (82-134)
[2024-11-14 12:14] LABS: Urine Albumin Negative (Neg - Trace); Urine Bilirubin Negative (Negative); Urine Character Clear (Clear); Urine Color Yellow; Urine Glucose 3+ (Negative); Urine Ketone Negative (Negative); Urine Leukocyte Negative (Negative); Urine Nitrite Negative (Negative); Urine Occult Blood 2+ (Negative); Urine Specific Gravity 1.015 (<1.030); Urine Urobilinogen Negative (Neg - 1+)
[2024-11-14 13:40] LABS: ACT+ - POC 518 Seconds (82-134)
[2024-11-14 13:43] LABS: Urine Squamous Cell 26-30 /LPF (Few)
[2024-11-14 13:44] LABS: Urine Bacteria Few (Negative); Urine Red Blood Cell 30-40 /HPF (0-2); Urine White Cell 0-2 /HPF (0-5)
[2024-11-14 13:55] LABS: B.E. - POC -1.1 mmol/L; Glucose - POC 97 mg/dl (70-99); HCO3 - POC 23 mmol/L (21-28); Hematocrit - POC 36 % PCV (42-52); Hemodilution- POC No; Hemoglobin Calculated - POC 12.2; Ionized Calcium - POC 1.21 mmol/L (1.15-1.33); O2 Saturation %Calculated-POC 99.8 % (94-98); PCO2 - POC 34 mmHg (35-48); PO2 - POC 233 mmHg (83-108); POC Comment PRE; Potassium - POC 4.1 mmol/L (3.5-5.1); Sodium - POC 142 mmol/L (136-145); Specimen Type - POC Arterial; pH - POC 7.43 (7.35-7.45)
[2024-11-14 14:04] LABS: ACT+ - POC 486 Seconds (82-134)
[2024-11-14 14:19] LABS: ACT+ - POC 492 Seconds (82-134)
[2024-11-14 14:30] LABS: B.E. - POC -0.7 mmol/L; Glucose - POC 110 mg/dl (70-99); HCO3 - POC 24 mmol/L (21-28); Hematocrit - POC 25 % PCV (42-52); Hemodilution- POC Yes; Hemoglobin Calculated - POC 8.6; Ionized Calcium - POC 1.07 mmol/L (1.15-1.33); O2 Saturation %Calculated-POC 99.9 % (94-98); PCO2 - POC 39 mmHg (35-48); PO2 - POC 301 mmHg (83-108); POC Comment CPB; Potassium - POC 5.1 mmol/L (3.5-5.1); Sodium - POC 139 mmol/L (136-145); Specimen Type - POC Arterial
[2024-11-14 14:40] LABS: ACT+ - POC 505 Seconds (82-134)
[2024-11-14 14:59] LABS: B.E. - POC 2.9 mmol/L; Glucose - POC 119 mg/dl (70-99); HCO3 - POC 28 mmol/L (21-28); Hematocrit - POC 29 % PCV (42-52); Hemodilution- POC Yes; Hemoglobin Calculated - POC 9.9; Ionized Calcium - POC 1.11 mmol/L (1.15-1.33); O2 Saturation %Calculated-POC 99.7 % (94-98); PCO2 - POC 42 mmHg (35-48); PO2 - POC 195 mmHg (83-108); POC Comment CPB; Potassium - POC 5.2 mmol/L (3.5-5.1); Sodium - POC 140 mmol/L (136-145); Specimen Type - POC Arterial; pH - POC 7.42 (7.35-7.45)
[2024-11-14 15:08] LABS: ACT+ - POC 520 Seconds (82-134)
[2024-11-14] MEDS: ANCEF 10 IV ×2 (15:25→18:56)
[2024-11-14 15:33] LABS: B.E. - POC 0.1 mmol/L; Glucose - POC 149 mg/dl (70-99); HCO3 - POC 25 mmol/L (21-28); Hematocrit - POC 29 % PCV (42-52); Hemodilution- POC Yes; Ionized Calcium - POC 1.07 mmol/L (1.15-1.33); O2 Saturation %Calculated-POC 99.1 % (94-98); PCO2 - POC 41 mmHg (35-48); PO2 - POC 139 mmHg (83-108); POC Comment WARM; Potassium - POC 5.6 mmol/L (3.5-5.1); Sodium - POC 140 mmol/L (136-145); Specimen Type - POC Arterial
[2024-11-14 15:36] LABS: ACT+ - POC 107 Seconds (82-134)
[2024-11-14 15:49] LABS: B.E. - POC 0.5 mmol/L; Glucose - POC 131 mg/dl (70-99); HCO3 - POC 24 mmol/L (21-28); Hematocrit - POC 28 % PCV (42-52); Hemodilution- POC Yes; Hemoglobin Calculated - POC 9.4; Ionized Calcium - POC 1.15 mmol/L (1.15-1.33); O2 Saturation %Calculated-POC 99.9 % (94-98); PCO2 - POC 33 mmHg (35-48); PO2 - POC 326 mmHg (83-108); POC Comment POST; Potassium - POC 4.3 mmol/L (3.5-5.1); Sodium - POC 141 mmol/L (136-145); Specimen Type - POC Arterial; pH - POC 7.47 (7.35-7.45)
--- NOTE | 2024-11-14 16:03 | W.IMMPOSTOP ---
Addendum entered and electronically signed by Eyal East MD 11/14/24 16:47:
[id number]
Original Note:
Surgical Immed Post Op Note
-
CARDIAC SURGERY OPERATIVE NOTE:
Preoperative Dx:
MVCAD
Postoperative Dx:
Same
Procedures:
1) Median sternotomy
2) Takedown of CHEMO (narrow pedicle/skeletonized)
3) Endoscopic harvest/prep of RLE GSV
4) CABG x 3 (CHEMO to LAD, GSV to distal RCA, GSV to OM)
Surgeon:
Eyal East M.D.
Assistants:
Luiz Fairbanks P.A.-CArcenio; human services assistant throughout
Bharati MckinneyA.-CArcenio; endoscopic harvest/prep of RLE GSV
Anesthesia:
Reza Vaca M.D. and Saul Mathur.N.A.
Perfusion:
Taqueria ChristianCArcenioPArcenio; XC: 61min, CPB: 94min
Findings:
CHEMO was healthy appearing conduit w/ brisk blood flow w/ slightly small ELD at 2.25mm
GSV was healthy appearing conduit w/ ELD 3.00mm
LAD was visible on the epicardial surface w/ scattered calcifications, anastomosis performed just distal to D2 branch; ELD 3.00mm
OM was visible on the epicardial surface w/ scattered calcifications, ELD 2.75mm
Distal RCA (just past crux) was healthy appearing vessel w/ minimal calcifications, ELD 1.75mm
Excellent flow in all grafts on transit-time U/S flow probe assessment
Post-ISAURA: LVEF 70% w/ no RWMA, RV normal, mild TR, trace MR, AV/PV normal, mild atheromatous disease of distal arch & descending aorta
Implants:
CT x 4 (B/L pleural, inferior mediastinal, superior mediastinal)
Sternal wires x 9
Complications:
None
Transfusions:
None
Condition:
65 isoelectric NSR (0.6/0.3), 112/62, CVP 16, 97%
GTTS: levophed 3, insulin 1, precedex 0.5
Stable/guarded to CVICU
--- NOTE | 2024-11-14 16:32 | W.PN.CARDCBS ---
Addendum entered and electronically signed by Simon Marroquin DO 11/14/24 21:34:
I saw and examined the patient.
The District Extension Service Agent's note was reviewed and I agree with the note.
Comment:
Plan:
Cont post op care
Compensated cv status
Eventual DAPT given NSTEMI
Discussed with nursing
Original Note:
Today's Communication / Plan
-
continue post op care
Impression / Plan
-
PCP: Dr. Amando Feliciano
Cardiology: None prior to admission, seen initially by [facility] and then cathed by Dr. Dyllan Fox
Impression:
Admitted to [facility] with chest pain and ACS 11/08/2024
Transferred to for evaluation of MV CAD 11/09/2024
NSTEMI, peak troponin T at [facility] 414
Multivessel CAD by cath 11/09/2024
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
be good surgical target, OM�2 moderate diffuse nonobstructive disease up to 40%, RCA appears to be culprit vessel with complex preocclusive 95% stenosis with clot by cath 11/09/2024
s/p CABG x3 (STEWART to LAD, GSV to distal RCA, GSV to OM) 11/14/24
Recent admission to [facility] for hematemesis and superficial duodenal ulcers 09/2024
Recent admission to [facility] for diverticulitis 10/08/2024 until 10/13/2024
DM2
HTN
Hyperlipidemia
Echo 11/08/2024: [facility] study, EF 55 to 60%, normal RV size and function, no , small anterior pericardial effusion with prominent pericardial fat pad
Plan:
-Presented as transfer from [facility] for evaluation of MV CAD. s/p CABG x3 (STEWART to LAD, GSV to distal RCA, GSV to OM) 11/14/24
-remains intubated, sedated
-currently on levo @4, insulin@1. wean as able
-in SR on review of tele. post op EKG SR with new RBBB.
-asa, plavix when able given NSTEMI presentation to [facility]
-was on toprol, lisinopril, farxiga pre op, resume as able
-Continue Zetia. LDL 93. Reported history of rash w/ statins. Consider retrial while admitted. May consider PCSK9 inhibitor as OP.
-Hgb A1c 8.5%. Continue tight DM control.
-continue post op care
HPI: Patient presents to as a transfer from [facility] for evaluation of MV CAD and cardiology has been consulted. Patient was admitted to [facility] 09/2024 with hematemesis and was found to have duodenal ulcers on EGD and evidence of Smith's esophagus at
that time. Patient then had another admission to [facility] but this time for diverticulitis from 10/08/2024 until 10/13/2024 and afterwards went to [facility] and was discharged to home 11/06/2024. Patient says that he was in his apartment and early
yesterday morning at about 3 AM awoke with a pressing sensation on his chest and paresthesias. He ambulated to the bathroom and then after using the bathroom had a fall and called for help. Despite help of bystanders he had 2 more falls before he
finally went to bed and then awoke with ongoing chest pain and was taken to [facility] ER. He was admitted and on ECG there was concern for inferior ST changes and his initial troponin was positive and ultimately peaked at 414 consistent with NSTEMI.
Patient was given Plavix 300 mg p.o. x 1 on 11/08/2024 and then had cardiac catheterization today that revealed MV CAD as noted above. Patient denies chest pain currently and remains on heparin drip. He was transferred to for evaluation for
possible CABG.
Progress Note - Freight Agent
Subjective
Date of Service: November 14, 2024
intubated, sedated
Objective
Labs:
Labs
Hgb 13.0 g/dL (13.0-18.0) 11/14/24 04:10
Hct 39.5 % (39.0-52.0) 11/14/24 04:10
Plt Count 313 10^3/uL (130-400) 11/14/24 04:10
PT 14.0 Sec (11.4-14.6) 11/10/24 04:16
INR 1.03 11/10/24 04:16
APTT 111.8 Sec (23.4-35.0) H 11/14/24 04:10
Sodium 139 mmol/L (135-145) 11/14/24 04:10
Potassium 4.7 mmol/L (3.5-5.1) 11/14/24 04:10
BUN 25 mg/dl (9-20) H 11/14/24 04:10
Creatinine 1.0 mg/dL (0.7-1.3) 11/14/24 04:10
Glucose 138 mg/dl (70-99) H 11/14/24 04:10
Vital Signs and I&O:
Vital Signs
Temp Pulse Resp BP Pulse Ox
97.8 F 77 16 125/73 98
11/14/24 10:00 11/14/24 10:30 11/14/24 10:00 11/14/24 10:26 11/14/24 10:26
Vital Signs
Temp Pulse Resp BP Pulse Ox
97.8 F 77 16 125/73 98
11/14/24 10:00 11/14/24 10:30 11/14/24 10:00 11/14/24 10:26 11/14/24 10:26
Intake & Output
11/12/24 11/13/24 11/14/24 11/15/24
07:59 07:59 07:59 07:59
Intake Total 1487 / 1487 2615 / 2615
Output Total 650 / 650 375 / 375
Balance 1487 / 1487 1964 / 1964 -375 / -375
Physical Exam
Physical Exam
GEN: No distress, intubated, sedated
HEENT: supple, mmm
LUNGS: CTA B/L, no wheezes
CV: Reg, S1/S2, no murmur
EXT: No cyanosis, clubbing, edema
NEURO: sedated
SKIN: Warm, pink, dry. No rash. Sternotomy dressing c/d/i. RLE with ke wrap
[2024-11-14 16:41] LABS: Glucose - Point of Care 130 mg/dl (70-99)
--- NOTE | 2024-11-14 16:43 | W.PN.UPDATE ---
Update Note
Progress Note Update
79-year-old male was transferred from [facility] on 11/09/24 for evaluation of multivessel coronary disease on left heart cath. Patient r/i for NSTEMI with elevated troponins. He was given 300 mg of Plavix p.o. on 11/08. Patient treated with
IV Heparin during Plavix washout period. Farxiga/Lisinopril held beginning 11/12/24.
IV fluids: 1000
U.O.:� 750
UF:� 650
Blood:� none
Wires:� 2 atrial and 1 bipolar V-wire
Inotropes:� none
Pressors:� Levophed @ 4
Sedatives:� Precedex @ 0.5
�
NEURO: sedated, pupils +2mm B/L
RESP: #8OT @22cm> 500/60%/14/5. Lungs clear B/L. 2 mediastinal (5cc on arrival) and R/L pleural (10cc on arrival) chest tubes to -20cm suction. Sanguineous drainage
CV: RRR +S1, S2, no S3, no�rub, no murmur. Dermabond to median sternotomy. RIJ w/slick intact. CVP 12
ABD: round, soft, no BS
EXT: no edema, +2/4 DP pulses B/L, no femoral bruit, RLE NOAH wrap intact; left radial A-line intact
: Jarvis with clear yellow urine
�
A/P: POD #0 s/p CABG x 3 STEWART-LAD; SVG-OM; SVG-distal RCA
ISAURA: EF�70%
- wean and extubate
# CAD/NSTEMI
- will require ASA/Plavix, statin/zetia, beta-evelyn when extubated/off pressors
�
# acute surgical blood loss anemia-expected
- trend CBC
�
# T2DM (A1C 8.5)
- insulin infusion x 48h
- resume Farxiga, glargine, lisinopril, januvia as glucose trends warrant
# Smith's esophagus
- continue Protonix
�
# BPH
- resume�Flomax, Proscar, and mirabegron as BP permits
--- NOTE | 2024-11-14 16:45 | CON.INTV ---
Consultation
Consultation Request
Date/Time Consultation Requested: 11/14/24
Date/Time Consultation Performed: 11/14/24
Performing Provider: Emmanuel
Reason for Consultation: CVICU
Medical History
-
History of Present Illness:
Patient is a 79-year-old male with previous history of hypertension, hyperlipidemia, diabetes presenting to ER from [facility] on 11/09/2024 for chest pain which was ruled in as acute STEMI. He was taken to the Utility Locate Technician and found to have
multivessel disease, transferred for CABG to . Underwent CABG x 3 on 11/14/2024 with no complications. Transferred postoperatively to CVICU for further management.
Past Medical History
Past Medical History: Other (see list below)
Social History
Tobacco: Former Smoker
Alcohol: None
Drug: None
Family History
Family History: Reviewed & Not Pertinent
Allergies / Home Medications
Allergies
Allergy/AdvReac Type Severity Reaction Status Date / Time
Penicillins Allergy Hives Verified 11/09/24 18:42
Rsbthpb-DCI-AvO Reductase Allergy Hives Verified 11/09/24 17:34
Inhibitor
Home Medications
�Medication �Instructions �Recorded �Confirmed �Last Taken �Type
dapagliflozin propanediol 5 mg 5 mg PO DAILY 11/09/24 11/09/24 Unknown History
tablet
ezetimibe 10 mg tablet 10 mg PO 11/09/24 Unknown History
finasteride 1 mg tablet 1 mg PO DAILY 11/09/24 11/09/24 Unknown History
gemfibrozil 600 mg tablet 600 mg PO BID 11/09/24 11/09/24 Unknown History
insulin aspart U-100 100 unit/mL 0 sliding scale dose SC BID 11/09/24 11/09/24 Unknown History
(3 mL) subcutaneous pen
insulin glargine 100 unit/mL 40 unit SC BID 11/09/24 11/09/24 Unknown History
subcutaneous solution
lisinopril 20 mg tablet 20 mg PO DAILY 11/09/24 11/09/24 Unknown History
melatonin 5 mg tablet 5 mg PO HS PRN sleep 11/09/24 11/09/24 Unknown History
metoprolol succinate 50 mg 50 mg PO DAILY 11/09/24 11/09/24 Unknown History
tablet,extended release 24 hr
mirabegron 50 mg tablet,extended 50 mg PO DAILY 11/09/24 11/09/24 Unknown History
release 24 hr
pantoprazole 20 mg tablet,delayed 40 mg PO DAILY 11/09/24 11/09/24 Unknown History
release
sitagliptin phosphate 100 mg tablet 100 mg PO DAILY 11/09/24 11/09/24 Unknown History
tamsulosin 0.4 mg capsule 0.4 mg PO DAILY 11/09/24 11/09/24 Unknown History
Review of Systems
-
Unable to Obtain full review of systems at this time due to: Patient Intubation
Vitals / Labs / Diagnostic Testing
Vital Signs
Temp Pulse Resp BP Pulse Ox
97.8 F 73 12 125/73 98
11/14/24 10:00 11/14/24 16:40 11/14/24 16:40 11/14/24 10:26 11/14/24 16:40
Laboratory Results
11/14/24
04:10
APTT 111.8 H
Diagnostic Testing:
Physical Exam
-
HEENT: Normocephalic, Anicteric and Moist Mucous Membranes
Cardiovascular: S1/S2 and Regular Rhythm
Respiratory: Clear, Non-Labored Respirations and Other (ETT/chest tubes)
GI: Soft, Non Distended and Non Tender
Neurology: Other (sedated/intubated)
Skin: Warm, Dry and Good Color
General: Comfortable and Other (NAD)
Assessment
-
Patient is a 79-year-old male with previous history of hypertension, hyperlipidemia, diabetes presenting to ER from [facility] on 11/09/2024 for chest pain which was ruled in as acute STEMI. He was taken to the [facility]ate Technician and found to have
multivessel disease, transferred for CABG to . Underwent CABG x 3 on 11/14/2024 with no complications. Transferred postoperatively to CVICU for further management.
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
Perioperative mechanical ventilation
Postop anemia, mild
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
hypertension
hyperlipemia
DM II
diverticulitis/GI bleed
duodenal ulcer
hiatal hernia
Smith's esophagus
history of falls
BPH
obesity, BMI 30.9
cad s/p cardiac cath
appendectomy
tonsillectomy
TURP
Former Smoker (quit 43 years ago, has 44 pack year history)
Plan
S/p CABx 3 POD #0
Titrate off pressors per protocol
ECHO reviewed with normal function
PA catheter readings reviewed
Management of chest tubes per primary service
Intubated/sedated, initiate SAT when able
Pain control
RASS goal of 0 to -1
Intubated for procedure, SBT trial when patient able to spontaneously breath
Current vent settings: SIMV 500/12/60/5+
ABG(s) pending
CXR initial without acute issues, repeat pending
Extubate per protocol if stable on SBT
Maintain supplement oxygen as needed
No prior history of pulmonary disease, former smoker/40 pack years -- at risk for COPD
No prior PFTs for review
Can add nebulizers if needed
Aspiration precautions
Encouraged incentive spirometry, OOB/ambulation/early mobility
Advance diet as tolerated following extubation
GI prophylaxis if indicated for mechanical ventilation >48 hours
Monitor critical I/O's
Jarvis/chest tube output
Hb/platelets postoperatively stable
Trend CBC for now
Can transfuse if indicated for Hb <7, plt <50 in surgical patients
DVT prophylaxis including SCDs
Insulin protocol initiated and ongoing
Transition to SQ/off as indicated per team
We will follow
Diagnostic Data
Chest X-Ray: 11/12/24- No acute cardiopulmonary process.
CT Scan: CHEST 11/10/24- Dense coronary artery calcifications and/or stents, in this patient with multivessel coronary artery disease by recent catheterization. Calcification of the aortic valve, which appears mild to moderate. Mild calcification of
the posterior aortic arch and the descending thoracic aorta. No evidence for thoracic aortic aneurysm. Mild to moderate changes of emphysema, greatest in the right upper midlung. Linear band of increased density within the right lower lobe, just
inferior to the major fissure. The appearance is highly suggestive of a focal area of scarring. However, with no comparison examination available, it is probably prudent to obtain a follow-up CT of the chest in 6 months, to assess for any interval
change, that might suggest neoplasia. Mild bronchiectasis within the inferior aspect of both lower lobes, slightly greater on the right compared to the left. Mild interstitial fibrosis in the periphery of both lower lungs, right greater than left.
Fatty infiltration the liver.
Echo: ISAURA 11/14/24- Overall LVEF is approximately 60% with no RWMA. Moderate concentric left ventricular hypertrophy. Stage I Diastolic dysfunction. Trace mitral regurgitation. Mid ascending aorta is mildly dilated measuring 3.4 cm at the level of
the RPA. Mild scattered atheroma seen in the descending aorta and distal arch.
PFT's:
Reports and relevant images were personally reviewed.
-----
Critical care time 51 mins -- this includes review of history, physical exam, medications, hemodynamic/ventilator parameters, laboratory data, imaging and discussion with house staff, pharmacy, respiratory therapy, pressure sealer and tester, and nursing.
[2024-11-14 16:58] LABS: Hematocrit 31.7 % (39.0-52.0); Hemoglobin 10.6 g/dL (13.0-18.0); Platelet Count 194 10^3/uL (130-400)
[2024-11-14 16:59] LABS: B.E. 1.5 mmol/L; HCO3 25.9 mmol/L (21-28); Ionized Calcium 1.27 mMOL/L (1.15-1.33); O2 Saturation % 99.1 % (94-98); PCO2 39 mmHg (35-48); PO2 180 mmHg (83-108); Potassium 4.4 mMOL/L (3.5-5.1); Sodium 137 mMOL/L (136-145); pH 7.43 (7.35-7.45)
[2024-11-14 17:01] LABS: APTT 31.8 Sec (23.4-35.0); INR 1.35
[2024-11-14 17:04] LABS: Blood Urea Nitrogen 21 mg/dl (9-20); Estimated Creatinine Clearance 65 ml/min; Glucose 129 mg/dl (70-99); Magnesium 2.8 mg/dl (1.6-2.3)
[2024-11-14 17:38] LABS: Glucose - Point of Care 126 mg/dl (70-99)
--- NOTE | 2024-11-14 18:19 | PTCARENOTE ---
received patient from [facility] sedated and placed on vent by ASSOCIATE PROFESSOR OF LIBRARY SCIENCE. Out with usual lines, CTx4. no wires and no swan. Out on levo precedex and insulin per glycemic protocol. No blood products received intraop. SR on monitor HR 60-70s. Pulses palpable. no
edema. VSS. Pt warm and not requiring janette hugger, ekg and cxr done and labs drawn and sent. CTx4 to -20 wall suction draining red. No air leak/crepitus. Lungs diminished but clear. Jarvis draining clear yellow urine. All surgical sites c/d/i. Will
continue to monitor.
[2024-11-14 18:46] LABS: Glucose - Point of Care 125 mg/dl (70-99)
[2024-11-14] MEDS: NSS 500 IV (18:52)
[2024-11-14] MEDS: TYLENOL PO (18:53)
[2024-11-14] MEDS: NEURONTIN PO (18:54)
[2024-11-14] MEDS: PACERONE PO (18:54)
[2024-11-14] MEDS: NOVOLOG FLEXPEN SC (18:55)
[2024-11-14] MEDS: SENOKOT-S PO (19:16)
[2024-11-14 19:32] LABS: Hemoglobin 11.1 g/dL (13.0-18.0); Platelet Count 271 10^3/uL (130-400)
[2024-11-14] MEDS: CALCIUM GLUCONATE 100 IV (19:51)
--- NOTE | 2024-11-14 20:00 | PTCARENOTE ---
Assumed care of pt from cynthia RN. Bedside report. Pt intubated and Precedex infusing at this time. Pt following commands appropriately. Pt able to open eyes and APONTE. Pt is SR on the tele monitor. HR 60-70s. Heart tones audible. BP 90-100s/50-60s.
Levo infusing per protocol. Palpable pulses throughout. Pt intubated w/ ETT #8 secured at the right lip. See worklist for full vent settings. POX 98%. Lung sounds audible and diminished B/L. Mediastinal Ctx2 and R/L pleural CT to -20 suction, no
airleak or tidaling noted at this time, and output WNL. Abdomen round. Hypoactive BS. Jarvis catheter C/D/I and draining yellow urine. Sternal incision antibacterial dressing C/D/I. Right leg NOAH wrap C/D/I. Right groin puncture site C/D/I and BRITT.
Right IJ cordis w/ slick and left radial a-line intact, leveled, zeroed, and flushed. Right forearm #20 C/D/I and flushes. Glycemic protocol followed. Ordered labs drawn and sent. 2g calcium gluconate hung as ordered - see MAR. See worklist for full
nursing assessment and interventions.
[2024-11-14 20:08] LABS: Glucose - Point of Care 122 mg/dl (70-99)
[2024-11-14 20:57] LABS: Glucose - Point of Care 98 mg/dl (70-99)
[2024-11-14] MEDS: DILAUDID 0.25 MG IV (21:22)
[2024-11-14 21:25] LABS: B.E. -0.5 mmol/L; HCO3 24.2 mmol/L (21-28); Ionized Calcium 1.32 mMOL/L (1.15-1.33); O2 Saturation % 96.5 % (94-98); PCO2 39 mmHg (35-48); PO2 130 mmHg (83-108); Potassium 3.8 mMOL/L (3.5-5.1)
--- NOTE | 2024-11-14 21:30 | PTCARENOTE ---
Pt placed on CPAP ~2024. ABG drawn and sent ~2099. Respiratory at bedside. Pt extubated to 6 L NC @2119. POX 92%. Pt AAOx3. Following commands appropriately. Pt C/O pain - see JAN.
--- NOTE | 2024-11-14 21:30 | RESPNOTE ---
pt extubated per MD order without incident, pt suctioned orally and down ETT prior to extubation, pt tolerated extubation well. able to vocalize, no stridor present. placed on 6L NC at this time
[2024-11-14] MEDS: ANCEF 5 IV (21:35)
[2024-11-14] MEDS: KCL 50 IV (21:35)
[2024-11-14] MEDS: TYLENOL 1000 MG PO (22:40)
[2024-11-14] MEDS: ZETIA 10 MG PO (22:40)
[2024-11-14] MEDS: NEURONTIN 100 MG PO (22:41)
[2024-11-14] MEDS: LOW STRENGTH ASPIRIN 81 MG PO (22:41)
[2024-11-14 23:03] LABS: Glucose - Point of Care 128 mg/dl (70-99)
[2024-11-14] MEDS: LR 250 ML IV (23:08)
[2024-11-15] VITALS (30 sets, daily range): BP systolic 98–121; BP diastolic 40–86; PULSE 80; O2SAT 95; BMI 31.5
[2024-11-15] MEDS: LR 250 ML IV (00:03)
--- NOTE | 2024-11-15 00:07 | W.PN.CT ---
Today's Communication / Plan
-
Plan:
-No major issues overnight. Hemodynamically and neurologically intact
-Pt successfully extubated yesterday 11/14/24 @ 2120
-Weaned off Levophed at midnight, remains on insulin gtt per protocol
-BP soft postop, holding AM dose of BB
-No swan, U/O since OR 1200 mL
-Monitor chest tube output: 2meds 105/140, R/L pleurals 40/80
-AM cxr looks clear, no ptx, mild atelectasis on my review. F/U official report
-Cont. current meds (ASA, Plavix, Zetia, Amiodarone, Finasteride, Flomax, Toprol XL on hold)
-D/C'd SLIC and a-line @ 0415
-Consider keeping hagen catheter another day given BPH hx on both Flomax and Finasteride @ home, to avoid acute postop urinary retention
-Transfer to tele phase tomorrow when off insulin gtt per protocol. Diabetes education/management consult (A1C 8.5)
-Maintain cordis
-No PW
-Wean off of O2 as tolerated
-Encourage use of IS
-OOB into chair/Ambulate
Assessment / Plan
-
Assessment:
-S/P median sternotomy/CABG x 3 (CHEMO to LAD, GSV to distal RCA, GSV to OM)/Endoscopic harvest/prep of RLE GSV, by Dr. East, 11/14/24, pod#1
-Severe 3v CAD
-NSTEMI (high-sensitivity trop of 414 @ [facility])
-USA
-Plavix loaded, 11/08/24
-LVEF 60% preop, hyperdynamic @ 70% postop, per intraop ISAURA
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
-Mild TR
-HTN
-HLD (statin intolerance)
-T2DM (on insulin, hgb A1C 8.5)
-Class 1 obesity (BMI 31.1)
-Recent GI bleed (Duodenal ulcer), 09/2024
-Diverticulitis, 10/08/24
-Hiatal hernia
-Barrettes esophagus
-Fatty liver, per CT 11/10/24
-Mild-mod emphysema, per CT 11/10/24
-Mild bronchiectasis, per CT 11/10/24
-Mild interstitial lung disease, per CT 11/10/24
-Recent hx of fall
-BPH (on Flomax and finasteride)
-S/P appendectomy
-Acute postop blood loss/Anemia (stable without blood transfusion)
-Acute postop atelectasis
-Acute postop hypovolemia with subsequent hypervolemia
Discussed patient care with: Cardiology, Nursing, Respiratory Therapy, Pharmacy and Care Team
Subjective
Procedure
S/P median sternotomy/CABG x 3 (CHEMO to LAD, GSV to distal RCA, GSV to OM)/Endoscopic harvest/prep of RLE GSV, by Dr. East, 11/14/24
-
Date of Service: November 15, 2024
Pt c/o incisional pain, otherwise feels well
Objective Data
-
PT 17.0 Sec (11.4-14.6) H 11/14/24 16:33
INR 1.35 11/14/24 16:33
APTT 31.8 Sec (23.4-35.0) 11/14/24 16:33
Vital Signs
Vital Signs
Temp Pulse Resp BP Pulse Ox
98.2 F 74 17 105/71 99
11/15/24 00:00 11/15/24 00:00 11/15/24 00:00 11/15/24 00:00 11/15/24 00:00
CT Intake/Output/Weight
11/14/24 11/14/24 11/15/24
06:59 18:59 06:59
Intake Total 1515 / 2615 111.2 / 284.4 173.2 / 284.4
Output Total 650 / 650 980 / 1455 475 / 1455
Balance 865 / 1965 -868.8 / -1170.6 -301.8 / -1170.6
SaO2: 99 (2L)
Physical Exam
-
General: Awake, Oriented and AOx3
Cardiovascular: Regular rate & rhythm, No Murmurs, No Rub and No Gallop
Respiratory: Decreased Breath Sounds (at bases, otherwise clear)
Sternum: Stable
Incision: Clean, Dry, Intact and Dressing Intact
Extremities: Other (+trace edema)
Data Reviewed
-
Lab Results: Results Reviewed
Medications: Active Meds Reviewed
Chest X-Ray: Report Reviewed and Image Reviewed
ECG: Report Reviewed and Image Reviewed
--- NOTE | 2024-11-15 00:39 | PTCARENOTE ---
Pt reassessed. Pt SR on the tele monitor. HR 70s. BP 90-100s/50-60s. Titrating levo down per protocol. 250 LR bolus x2 per CTPA. Mediastinal CTx2 and R/L pleural CT assessment unchanged. Jarvis catheter C/D/I and draining yellow urine. All surgical
sites stable. CVP and left radial a-line leveled/zeroed/flushed. Glycemic protocol followed. Pt tolerating sips of water and ice chips. Pt repositioned in bed. Call peng within reach.
[2024-11-15 01:09] LABS: Glucose - Point of Care 107 mg/dl (70-99)
[2024-11-15 02:45] LABS: Hemoglobin 10.1 g/dL (13.0-18.0); Mean Corp Hgb Conc. 33.7 g/dL (33.0-37.0); Mean Corpuscular Hgb 29.4 pg (27.0-31.0); Mean Corpuscular Volume 87.5 fL (80.0-94.0); Mean Platelet Volume 9.4 fL (7.4-10.4); Platelet Count 263 10^3/uL (130-400); Red Blood Cell Count 3.43 10^6/uL (4.70-6.10); Red Cell Dist. Width 13.8 % (11.5-14.5)
[2024-11-15] MEDS: NOVOLIN R INSULIN INFUSION 100 IV (02:58)
[2024-11-15 03:01] LABS: Glucose - Point of Care 88 mg/dl (70-99)
[2024-11-15 03:06] LABS: Blood Urea Nitrogen 22 mg/dl (9-20); Calcium 8.9 mg/dl (8.4-10.2); Carbon Dioxide 26 mmol/L (22-30); Chloride 106 mmol/L (98-107); Estimated Creatinine Clearance 65 ml/min; Glucose 110 mg/dl (70-99); Magnesium 2.2 mg/dl (1.6-2.3); Potassium 4.7 mmol/L (3.5-5.1); Sodium 140 mmol/L (135-145); eGFR > 60.00
[2024-11-15] MEDS: CALCIUM GLUCONATE 100 IV (04:04)
--- NOTE | 2024-11-15 04:48 | PTCARENOTE ---
Pt remains SR on the tele monitor. HR 70s. BP stable. Levo titrated off. CVP ~6-10. CT x4 assessment unchanged. Pt on 2 L NC. POX 98%. Jarvis catheter C/D/I and draining yellow urine. All surgical sites stable. Ordered labs drawn and sent. EKG
obtained. Left radial a-line and slick dc'd as ordered. Pt repositioned in bed. Call peng within reach.
[2024-11-15 04:53] LABS: Glucose - Point of Care 115 mg/dl (70-99)
[2024-11-15] MEDS: ANCEF 5 IV ×2 (05:58→13:50)
[2024-11-15] MEDS: TYLENOL 1000 MG PO ×3 (05:58→21:34)
[2024-11-15 07:25] LABS: Glucose - Point of Care 100 mg/dl (70-99)
--- NOTE | 2024-11-15 08:04 | W.PN.INTV ---
Today's Communication / Plan
Recommendations
Doing well post extubation, stable on RA
Encouraged OOB, PT--sitting in chair
Pain control
Transitioning off insulin gtt per team
When off insulin, [facility] We will sign off upon transfer
Assessment
-
Patient is a 79-year-old male with previous history of hypertension, hyperlipidemia, diabetes presenting to ER from [facility] on 11/09/2024 for chest pain which was ruled in as acute STEMI. He was taken to the Commodity Specialist and found to have
multivessel disease, transferred for CABG to . Underwent CABG x 3 on 11/14/2024 with no complications. Transferred postoperatively to CVICU for further management.
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
Perioperative mechanical ventilation
Postop anemia, mild
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
hypertension
hyperlipemia
DM II
diverticulitis/GI bleed
duodenal ulcer
hiatal hernia
Smith's esophagus
history of falls
BPH
obesity, BMI 30.9
cad s/p cardiac cath
appendectomy
tonsillectomy
TURP
Former Smoker (quit 43 years ago, has 44 pack year history)
Plan
S/p CABx 3 POD #1
Off pressors per protocol
ECHO reviewed with normal function
PA catheter discontinued
Management of chest tubes per primary service
Pain control
RASS goal of 0 to -1
Intubated for procedure, extubated and doing well
ABG(s) reviewed/adequate
CXR repeat with stable postop changes
Maintain supplement oxygen as needed
No prior history of pulmonary disease, former smoker/40 pack years -- at risk for COPD
No prior PFTs for review
Can add nebulizers if needed
Aspiration precautions
Encouraged incentive spirometry, OOB/ambulation/early mobility
Advance diet as tolerated following extubation
GI prophylaxis if indicated for mechanical ventilation >48 hours
Monitor critical I/O's
Jarvis/chest tube output
Hb/platelets postoperatively stable
Trend CBC for now
Can transfuse if indicated for Hb <7, plt <50 in surgical patients
DVT prophylaxis including SCDs
Insulin protocol initiated and ongoing
Transition to SQ/off as indicated per team
Diagnostic Data
Chest X-Ray: 11/12/24- No acute cardiopulmonary process.
CT Scan: CHEST 11/10/24- Dense coronary artery calcifications and/or stents, in this patient with multivessel coronary artery disease by recent catheterization. Calcification of the aortic valve, which appears mild to moderate. Mild calcification of
the posterior aortic arch and the descending thoracic aorta. No evidence for thoracic aortic aneurysm. Mild to moderate changes of emphysema, greatest in the right upper midlung. Linear band of increased density within the right lower lobe, just
inferior to the major fissure. The appearance is highly suggestive of a focal area of scarring. However, with no comparison examination available, it is probably prudent to obtain a follow-up CT of the chest in 6 months, to assess for any interval
change, that might suggest neoplasia. Mild bronchiectasis within the inferior aspect of both lower lobes, slightly greater on the right compared to the left. Mild interstitial fibrosis in the periphery of both lower lungs, right greater than left.
Fatty infiltration the liver.
Echo: ISAURA 11/14/24- Overall LVEF is approximately 60% with no RWMA. Moderate concentric left ventricular hypertrophy. Stage I Diastolic dysfunction. Trace mitral regurgitation. Mid ascending aorta is mildly dilated measuring 3.4 cm at the level of
the RPA. Mild scattered atheroma seen in the descending aorta and distal arch.
PFT's:
Reports and relevant images were personally reviewed.
-----
Critical care time 31 mins -- this includes review of history, physical exam, medications, hemodynamic/ventilator parameters, laboratory data, imaging and discussion with house staff, pharmacy, respiratory therapy, hammer smith, and nursing.
Subjective Dataa
Subjective Data
Date of Service:
Date of Service: November 15, 2024
Chief Complaint: Records Associate Follow Up
Subjective:
Doing well post extubation, no events
Minimal pain, stable on RA
Objective Data
Data Reviewed
Vital Signs / I&O / Oxygen:
Vital Signs
Temp Pulse Resp BP Pulse Ox
98 F 101 18 119/66 98
11/15/24 04:00 11/15/24 07:15 11/15/24 07:10 11/15/24 07:12 11/15/24 07:05
Intake and Output
11/14/24 11/15/24 11/16/24
06:59 06:59 06:59
Intake Total 2615 / 2615 394.1 / 406.4 12.3 / 12.3
Output Total 650 / 650 1855 / 1950 95 / 95
Balance 1965 / 1965 -1460.9 / -1543.6 -82.7 / -82.7
SaO2 [CPAP/PSV] 97
SaO2 [SIMV] 99
SaO2 98
Nasal Cannula flow liters per 2
minute
Physical Exam
General: Comfortable and Other (NAD)
HEENT: Normocephalic, Anicteric and Moist Mucous Membranes
Cardiovascular: S1-S2 and Regular Rhythm
Respiratory: Clear, Non-Labored Respirations and Chest Tube
GI: Soft, Non Distended and Non Tender
Neurology: Awake, Alert, Oriented and No Motor Deficits
Skin: Warm, Dry and Good Color
Labs/Micro/Reports
Lab Data
11/15/24 02:36
11/15/24 02:36
Laboratory Results
11/14/24 11/14/24 11/14/24
16:33 21:02 21:02
PT 17.0 H
INR 1.35
APTT 31.8
pH 7.43 Cancelled 7.40
pCO2 39 Cancelled
pO2 180 H
HCO3 25.9
O2 Delivery Level
11/14/24 11/14/24 11/14/24
21:02 21:02 21:02
PT
INR
APTT
pH
pCO2 39
pO2 Cancelled 130 H
HCO3 Cancelled 24.2
O2 Delivery Level Cancelled
11/14/24
21:02
PT
INR
APTT
pH
pCO2
pO2
HCO3
O2 Delivery Level
--- NOTE | 2024-11-15 08:30 | PTCARENOTE ---
Received patient from [facility] RN @ 0700. Patient helped OOB to chair with 3 assist. Sitting comfortable with call peng in reach. Patient assessed. VSS BP 117/70 HR 76 POX 95% RA. Patient states pain is 0/10. AOx3, heart NSR, lungs
diminished throughout IS 1000, 2 mediastinal and 2 pleural chest tubes draining serosanguineous fluid WNL, Chest tube pressures set to -20 mmHg, Bowel sounds hypoactive, Jarvis draining clear yellow urine, radial and pedal pulses present, sternal
wound dressing dry and intact, right groin puncture dry and open to air, right knee incision covered with NOAH, CDI, chest tube dressing dry and intact. RIJ cordis and right PIV patent and intact. RIJ cordis infusing NSS, right PIV infusing insulin
per glycemic protocol.
--- NOTE | 2024-11-15 08:38 | PN.DE.MGMTRT ---
Insulin Management
- -
11/15/2024 Diabetes Management Consult
Patient admitted 11/10, transferred from [facility] with CP, elevated troponin, Nstemi. PMH type 2 diabetes, USA, HTN, HLD, diverticulitis, hiatal hernia, Barretts esophagus, duodenal ulcer, BPH, recent fall. Prior to admission was taking Farxiga
5 mg daily, Januvia 100 mg daily, lantus 40 units BID and novolog ss. A1C on admission 8.5%, cr .9, eGFR > 60 today.
Patient is POD 1 s/p CABG
Awake alert and oriented, able to discuss diabetes care. Discussed his A1C of 8.5% which he agrees is too high. He follows with his doctor , Jodie. He states he often is as low as 80 when he wakes up in the morning. Discussed reducing hs lantus.
He states he has a glucose monitor but would like a sensor. Will order at discharge.
Will continue glycemic protocol insulin infusion.and assess for readiness to transition tomorrow @ ~ 1:30 PM.
Discussed with nurse, will follow.
Diabetes History
- -
Type of Diabetes: 2 requiring insulin
Pre-Admission Diabetes Regimen
11/14/24 11/15/24
16:33 02:36
Creatinine 0.9 0.9
Lab Results
Hemoglobin A1c 8.5 % (4.0-5.6) H 11/09/24 17:41
Insulin Pump Settings
IP Diabetes Regimen
11/14/24 11/14/24 11/14/24
16:33 16:38 17:36
Glucose 129 H
POC Glucose 130 H 126 H
11/14/24 11/14/24 11/14/24
18:45 20:07 20:55
Glucose
POC Glucose 125 H 122 H 98
11/14/24 11/15/24 11/15/24
23:02 01:07 02:36
Glucose 110 H
POC Glucose 128 H 107 H
11/15/24 11/15/24 11/15/24
03:01 04:52 07:23
Glucose
POC Glucose 88 115 H 100 H
Meal type: Lunch
Patient Education
[2024-11-15] MEDS: NOVOLOG FLEXPEN 4 UNITS SC ×3 (08:44→17:10)
[2024-11-15 08:51] LABS: Glucose - Point of Care 108 mg/dl (70-99)
[2024-11-15] MEDS: PACERONE 200 MG PO ×3 (09:10→21:35)
[2024-11-15] MEDS: MAGNESIUM OXIDE 500 MG PO ×2 (09:10→20:20)
[2024-11-15] MEDS: PLAVIX 75 MG PO (09:10)
[2024-11-15] MEDS: PROTONIX 40 MG PO (09:10)
[2024-11-15] MEDS: NEURONTIN 100 MG PO ×3 (09:11→21:34)
[2024-11-15] MEDS: SENOKOT-S 1 TABLET PO ×2 (09:11→20:20)
[2024-11-15] MEDS: VITAMIN C 500 MG PO (09:11)
[2024-11-15] MEDS: FEOSOL 325 MG PO (09:11)
[2024-11-15] MEDS: PROSCAR 5 MG PO (09:11)
[2024-11-15] MEDS: LOW STRENGTH ASPIRIN 81 MG PO (09:12)
[2024-11-15] MEDS: LIDOCAINE 4% PATCH TOPICAL (09:12)
[2024-11-15] MEDS: BACTROBAN 2% OINTMENT 1 APPLIC NASAL ×2 (09:12→21:34)
[2024-11-15 10:46] LABS: Glucose - Point of Care 103 mg/dl (70-99)
--- NOTE | 2024-11-15 10:46 | W.PN.ANS.POP ---
Anesthesia Post Operative
- Anesthesia Post Op Note
Vital Signs Stable-See Nursing Note: Yes
Airway Patent: Yes
Adequate Pain Control: Yes
Change in Mental Status: No
Current Postoperative Nausea & Vomiting: No
Anesthesia Complications: No
General Anesthetic Recall: No
Unplanned Admission: No
Post Op Hydration Adequate: Yes
- -
Pt awake and alert- resting comfortably with no anesthesia related c/o at time of post op visit.
[2024-11-15 12:52] LABS: Glucose - Point of Care 89 mg/dl (70-99)
--- NOTE | 2024-11-15 13:00 | PTCARENOTE ---
Assessment unchanged. VSS NSR BP 121/62 HR 76 POX 94 RA. Matheus D/C @1030. Chest tubes draining serosanguineous WNL. Chest tube dressings changed. Insulin infusing in right PIV at 0.4 units/hr per glycemic protocol. Patient worked with PT OT
and now OOB in chair with call peng in reach.
[2024-11-15] MEDS: NSS IV (14:07)
--- NOTE | 2024-11-15 14:38 | CM ---
Reviewed chart. Met with Mr. Antoine to review discharge plans. Reviewed with him the therapy recommendations of acute rehab. We reviewed Acute Rehab. Centers [facility] [place] and [facility]. He states he would prefer to go to
[facility] [place] if approved for admission. Telephone call to [facility] Liaison to make the referral. Sent the referral. Medical work-up in progress. The discharge plan is to go [facility] [place] if approved for admission and
bed available when medically stable.
[2024-11-15 15:03] LABS: Glucose - Point of Care 242 mg/dl (70-99)
--- NOTE | 2024-11-15 16:00 | PTCARENOTE ---
Pt reassessed. Pt resting comfortably in bed. Denies pain, shortness of breath, and nausea. NSR on tele with rates in the 80s. BP 106/53. POX 93% on RA. Surgical sites stable. CT output WNL.
[2024-11-15 16:02] LABS: Glucose - Point of Care 211 mg/dl (70-99)
--- NOTE | 2024-11-15 16:26 | W.PN.CARDCBS ---
Addendum entered and electronically signed by Bry Green MD 11/15/24 17:12:
patient seen and examined
agree with SOMMER Brennan's notes and assessment
agree with SOMMER Brennan's plan
exam:
heent ncat
jvp 6
cor regular
lungs ctab
abd soft nt nd
no ext edema
aao x3
non focal neurologically
PCP: Dr. Amando Feliciano
Cardiology: None prior to admission, seen initially by [facility] and then cathed by Dr. Dyllan Fox
Impression:
Admitted to [facility] with chest pain and ACS 11/08/2024
Transferred to for evaluation of MV CAD 11/09/2024
NSTEMI, peak troponin T at [facility] 414
Multivessel CAD by cath 11/09/2024
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
be good surgical target, OM�2 moderate diffuse nonobstructive disease up to 40%, RCA appears to be culprit vessel with complex preocclusive 95% stenosis with clot by cath 11/09/2024
s/p CABG x3 (STEWART to LAD, GSV to distal RCA, GSV to OM) 11/14/24Recent admission to [facility] for hematemesis and superficial duodenal ulcers 09/2024
Recent admission to [facility] for diverticulitis 10/08/2024 until 10/13/2024
DM2
HTN
Hyperlipidemia
Echo 11/08/2024: [facility] study, EF 55 to 60%, normal RV size and function, no , small anterior pericardial effusion with prominent pericardial fat pad
Plan:
-Off pressor
-ECG stable
-DAPT therapy
-Outpatient dose of Toprol-XL 50 mg daily has been reduced to 12.5 mg twice daily
-Outpatient dose of lisinopril 20 mg daily remains on hold
-Outpatient dose of the Jardiance 5 mg daily remains on hold
-LDL 93. Patient is statin intolerant due to history of rash with statins. Outpatient dose of Zetia 10 mg daily can continued. Patient can follow-up with [facility] cardiology about possible PCSK9 inhibitors as an outpatient
Original Note:
Today's Communication / Plan
-
RBBB no longer present
Impression / Plan
-
PCP: Dr. Amando Feliciano
Cardiology: None prior to admission, seen initially by [facility] and then cathed by Dr. Dyllan Fox
Impression:
Admitted to [facility] with chest pain and ACS 11/08/2024
Transferred to for evaluation of MV CAD 11/09/2024
NSTEMI, peak troponin T at [facility] 414
Multivessel CAD by cath 11/09/2024
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
be good surgical target, OM�2 moderate diffuse nonobstructive disease up to 40%, RCA appears to be culprit vessel with complex preocclusive 95% stenosis with clot by cath 11/09/2024
s/p CABG x3 (STEWART to LAD, GSV to distal RCA, GSV to OM) 11/14/24
Recent admission to [facility] for hematemesis and superficial duodenal ulcers 09/2024
Recent admission to [facility] for diverticulitis 10/08/2024 until 10/13/2024
DM2
HTN
Hyperlipidemia
Echo 11/08/2024: [facility] study, EF 55 to 60%, normal RV size and function, no , small anterior pericardial effusion with prominent pericardial fat pad
Plan:
-HD stable post-op and off of Levophed
-ECG from 1/8/25 reviewed by me and is NSR and RBBB no longer present
-Patient was a NSTEMI at [facility] prior to transfer and is new to aspirin and Plavix
-Outpatient dose of Toprol-XL 50 mg daily has been reduced to 12.5 mg twice daily
-Outpatient dose of lisinopril 20 mg daily remains on hold
-Outpatient dose of the Jardiance 5 mg daily remains on hold
-LDL 93. Patient is statin intolerant due to history of rash with statins. Outpatient dose of Zetia 10 mg daily can continued. Patient can follow-up with [facility] cardiology about possible PCSK9 inhibitors as an outpatient
HPI: Patient presents to as a transfer from [facility] for evaluation of MV CAD and cardiology has been consulted. Patient was admitted to [facility] 09/2024 with hematemesis and was found to have duodenal ulcers on EGD and evidence of Smith's esophagus at
that time. Patient then had another admission to [facility] but this time for diverticulitis from 10/08/2024 until 10/13/2024 and afterwards went to [facility] and was discharged to home 11/06/2024. Patient says that he was in his apartment and early
yesterday morning at about 3 AM awoke with a pressing sensation on his chest and paresthesias. He ambulated to the bathroom and then after using the bathroom had a fall and called for help. Despite help of bystanders he had 2 more falls before he
finally went to bed and then awoke with ongoing chest pain and was taken to [facility] ER. He was admitted and on ECG there was concern for inferior ST changes and his initial troponin was positive and ultimately peaked at 414 consistent with NSTEMI.
Patient was given Plavix 300 mg p.o. x 1 on 11/08/2024 and then had cardiac catheterization today that revealed MV CAD as noted above. Patient denies chest pain currently and remains on heparin drip. He was transferred to for evaluation for
possible CABG.
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
Subjective
Date of Service: November 15, 2024
No chest pain
Objective
Labs:
11/15/24 02:36
11/15/24 02:36
Labs
Hgb 10.1 g/dL (13.0-18.0) L 11/15/24 02:36
Hct 30.0 % (39.0-52.0) L 11/15/24 02:36
Plt Count 263 10^3/uL (130-400) 11/15/24 02:36
PT 17.0 Sec (11.4-14.6) H 11/14/24 16:33
INR 1.35 11/14/24 16:33
APTT 31.8 Sec (23.4-35.0) 11/14/24 16:33
Sodium 140 mmol/L (135-145) 11/15/24 02:36
Potassium 4.7 mmol/L (3.5-5.1) 11/15/24 02:36
BUN 22 mg/dl (9-20) H 11/15/24 02:36
Creatinine 0.9 mg/dL (0.7-1.3) 11/15/24 02:36
Glucose 110 mg/dl (70-99) H 11/15/24 02:36
Vital Signs and I&O:
Vital Signs
Temp Pulse Resp BP Pulse Ox
98.0 F 86 16 106/53 93
11/15/24 16:00 11/15/24 16:01 11/15/24 16:00 11/15/24 16:01 11/15/24 16:01
Vital Signs
Temp Pulse Resp BP Pulse Ox
98.0 F 86 16 106/53 93
11/15/24 16:00 11/15/24 16:01 11/15/24 16:00 11/15/24 16:01 11/15/24 16:01
Intake & Output
11/13/24 11/14/24 11/15/24 11/16/24
06:59 06:59 06:59 06:59
Intake Total 2615 / 2615 394.1 / 406.4 364.0 / 364.0
Output Total 650 / 650 1855 / 1949 295 / 295
Balance 1965 / 1964 -1460.9 / -1543.6 69.0 / 69.0
Physical Exam
Physical Exam
GEN: AAOx3
HEENT: MMM
LUNGS: RA
CV: SR on tele
ABD: ND
EXT: No edema B/L
NEURO: Gross non-focal
SKIN: No rash.
[2024-11-15 17:10] LABS: Glucose - Point of Care 168 mg/dl (70-99)
[2024-11-15 19:02] LABS: Glucose - Point of Care 138 mg/dl (70-99)
--- NOTE | 2024-11-15 20:00 | PTCARENOTE ---
Received pt from [facility]. pt resting comfortably in bed. Pt is POD #1. pt is AAOx4, denies pain. NSR on monitor. VSS. heart sounds audible, radial and DP pulses palpable, trace SANDRINE. Lungs diminished at b/l bases, spo2 93 on RA, x2 MS and left and
right pleural CT to -20 wall suction, no air leaks, no tidaling, no crepitus. + BS x 4 quadrants, abdomen soft non tender. pt is due to void since removal at hagen catheter at 1030, will bladder scan. surgical sites maintained. right IJ cordis and
PIV maintained. Insulin gtt infusing. call peng within reach will continue to monitor.
[2024-11-15 21:17] LABS: Glucose - Point of Care 76 mg/dl (70-99)
[2024-11-15] MEDS: TOPROL XL 12.5 MG PO (21:34)
[2024-11-15] MEDS: ZETIA 10 MG PO (21:34)
[2024-11-15] MEDS: FLOMAX 0.4 MG PO (21:35)
[2024-11-15 22:08] LABS: Glucose - Point of Care 101 mg/dl (70-99)
[2024-11-15 23:21] LABS: Glucose - Point of Care 142 mg/dl (70-99)
[2024-11-16] VITALS (17 sets, daily range): BP systolic 75–129; BP diastolic 51–70; PULSE 101; O2SAT 95; BMI 32.0
--- NOTE | 2024-11-16 | PTCARENOTE ---
Pt was bladder scanned for > 500mls of urine. pt was assisted to commode to attempt to void but was unable to. pt was straight cathed for 60 mls of clear yellow urine. will continue to monitor
[2024-11-16 00:18] LABS: Glucose - Point of Care 137 mg/dl (70-99)
[2024-11-16 01:10] LABS: Glucose - Point of Care 140 mg/dl (70-99)
[2024-11-16 03:20] LABS: Glucose - Point of Care 135 mg/dl (70-99)
[2024-11-16 03:48] LABS: Hematocrit 26.2 % (39.0-52.0); Hemoglobin 8.7 g/dL (13.0-18.0); Mean Corp Hgb Conc. 33.2 g/dL (33.0-37.0); Mean Corpuscular Hgb 29.3 pg (27.0-31.0); Mean Corpuscular Volume 88.2 fL (80.0-94.0); Mean Platelet Volume 9.7 fL (7.4-10.4); Platelet Count 270 10^3/uL (130-400); Red Blood Cell Count 2.97 10^6/uL (4.70-6.10); Red Cell Dist. Width 14.4 % (11.5-14.5); White Blood Cell Count 18.5 10^3/uL (4.8-10.8)
[2024-11-16 04:07] LABS: Blood Urea Nitrogen 24 mg/dl (9-20); Calcium 8.6 mg/dl (8.4-10.2); Carbon Dioxide 28 mmol/L (22-30); Chloride 100 mmol/L (98-107); Estimated Creatinine Clearance 66 ml/min; Glucose 126 mg/dl (70-99); Potassium 4.2 mmol/L (3.5-5.1); Sodium 134 mmol/L (135-145); eGFR > 60.00
--- NOTE | 2024-11-16 04:15 | PTCARENOTE ---
Pt bladder scan again at 0330. pt had over 400mls of urine in bladder. hagen catheter was placed per [facility].
[2024-11-16 04:55] LABS: Glucose - Point of Care 164 mg/dl (70-99)
[2024-11-16] MEDS: TYLENOL 1000 MG PO ×2 (04:56→21:19)
[2024-11-16 07:10] LABS: Glucose - Point of Care 134 mg/dl (70-99)
--- NOTE | 2024-11-16 07:17 | W.PN.INTV ---
Today's Communication / Plan
Recommendations
Doing well today, stable on RA/off pressors
Transitioned off insulin IV
Encouraged OOB/PT/IS
Transfer to tele per team, we will sign off upon transfer
Assessment
-
Patient is a 79-year-old male with previous history of hypertension, hyperlipidemia, diabetes presenting to ER from [facility] on 11/09/2024 for chest pain which was ruled in as acute STEMI. He was taken to the [facility] and found to have
multivessel disease, transferred for CABG to . Underwent CABG x 3 on 11/14/2024 with no complications. Transferred postoperatively to CVICU for further management.
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
Perioperative mechanical ventilation
Postop anemia, mild
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
hypertension
hyperlipemia
DM II
diverticulitis/GI bleed
duodenal ulcer
hiatal hernia
Smith's esophagus
history of falls
BPH
obesity, BMI 30.9
cad s/p cardiac cath
appendectomy
tonsillectomy
TURP
Former Smoker (quit 43 years ago, has 44 pack year history)
Plan
S/p CABx 3 POD #2
Off pressors per protocol
ECHO reviewed with normal function
PA catheter discontinued
Chest tubes discontinued
Pain control
RASS goal of 0 to -1
Intubated for procedure, extubated and doing well
ABG(s) reviewed/adequate
CXR repeat with stable postop changes
Maintain supplement oxygen as needed
No prior history of pulmonary disease, former smoker/40 pack years -- at risk for COPD
No prior PFTs for review
Can add nebulizers if needed
Aspiration precautions
Encouraged incentive spirometry, OOB/ambulation/early mobility
Advance diet as tolerated following extubation
GI prophylaxis if indicated for mechanical ventilation >48 hours
Monitor critical I/O's
Jarvis/chest tube output
Hb/platelets postoperatively stable
Trend CBC for now
Can transfuse if indicated for Hb <7, plt <50 in surgical patients
DVT prophylaxis including SCDs
Insulin protocol transitioned to SQ
Ongoing adjustments per team
Diagnostic Data
Chest X-Ray: 11/12/24- No acute cardiopulmonary process.
CT Scan: CHEST 11/10/24- Dense coronary artery calcifications and/or stents, in this patient with multivessel coronary artery disease by recent catheterization. Calcification of the aortic valve, which appears mild to moderate. Mild calcification of
the posterior aortic arch and the descending thoracic aorta. No evidence for thoracic aortic aneurysm. Mild to moderate changes of emphysema, greatest in the right upper midlung. Linear band of increased density within the right lower lobe, just
inferior to the major fissure. The appearance is highly suggestive of a focal area of scarring. However, with no comparison examination available, it is probably prudent to obtain a follow-up CT of the chest in 6 months, to assess for any interval
change, that might suggest neoplasia. Mild bronchiectasis within the inferior aspect of both lower lobes, slightly greater on the right compared to the left. Mild interstitial fibrosis in the periphery of both lower lungs, right greater than left.
Fatty infiltration the liver.
Echo: ISAURA 11/14/24- Overall LVEF is approximately 60% with no RWMA. Moderate concentric left ventricular hypertrophy. Stage I Diastolic dysfunction. Trace mitral regurgitation. Mid ascending aorta is mildly dilated measuring 3.4 cm at the level of
the RPA. Mild scattered atheroma seen in the descending aorta and distal arch.
PFT's:
Reports and relevant images were personally reviewed.
-----
Critical care time 31 mins -- this includes review of history, physical exam, medications, hemodynamic/ventilator parameters, laboratory data, imaging and discussion with house staff, pharmacy, respiratory therapy, hearing aid assistant, and nursing.
Subjective Dataa
Subjective Data
Date of Service:
Date of Service: November 16, 2024
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
Subjective:
Doing well today, no complaints
Stable on RA, chest tubes are removed
No pain
Objective Data
Data Reviewed
Vital Signs / I&O / Oxygen:
Vital Signs
Temp Pulse Resp BP Pulse Ox
98.7 F 89 16 109/58 95
11/16/24 04:00 11/16/24 07:00 11/16/24 07:00 11/16/24 07:00 11/16/24 07:00
Intake and Output
11/15/24 11/16/24 11/17/24
06:59 06:59 06:59
Intake Total 394.1 / 406.4 507.8 / 519.8
Output Total 1855 / 1950 1245 / 1625 380 / 380
Balance -1460.9 / -1543.6 -737.2 / -1105.2 -368 / -368
SaO2 [CPAP/PSV] 97
SaO2 [SIMV] 99
SaO2 95
Nasal Cannula flow liters per 2
minute
Physical Exam
General: Comfortable and Other (NAD)
HEENT: Normocephalic, Anicteric and Moist Mucous Membranes
Cardiovascular: S1-S2 and Regular Rhythm
Respiratory: Clear and Non-Labored Respirations
GI: Soft, Non Distended and Non Tender
Neurology: Awake, Alert, Oriented and No Motor Deficits
Skin: Warm, Dry and Good Color
Labs/Micro/Reports
Lab Data
11/16/24 03:18
11/16/24 03:18
--- NOTE | 2024-11-16 08:07 | W.PN.CT ---
Today's Communication / Plan
-
-pod#2
-unable to void - straight cathed with Coude catheter for 600cc last night. Jarvis replaced this am for acute urinary retention
-continue Flomax and Proscar
-drips: insulin
-CT outputs: 2 meds , 2 pleur 20/110 in 12/24 hrs
-continue current meds
-encourage IS, OOB
Assessment / Plan
-
Assessment:
-S/P median sternotomy/CABG x 3 (CHEMO to LAD, GSV to distal RCA, GSV to OM)/Endoscopic harvest/prep of RLE GSV, by Dr. East, 11/14/24, pod#2
-Severe 3v CAD
-NSTEMI (high-sensitivity trop of 414 @ [facility])
-[place]
-Plavix loaded, 11/08/24
-LVEF 60% preop, hyperdynamic @ 70% postop, per intraop ISAURA
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
-Mild TR
-HTN
-HLD (statin intolerance)
-T2DM (on insulin, hgb A1C 8.5)
-Class 1 obesity (BMI 31.1)
-Recent GI bleed (Duodenal ulcer), 09/2024
-Diverticulitis, 10/08/24
-Hiatal hernia
-Barrettes esophagus
-Fatty liver, per CT 11/10/24
-Mild-mod emphysema, per CT 11/10/24
-Mild bronchiectasis, per CT 11/10/24
-Mild interstitial lung disease, per CT 11/10/24
-Recent hx of fall
-BPH (on Flomax and finasteride)
-S/P appendectomy
-Acute postop blood loss/Anemia (stable without blood transfusion)
-Acute postop atelectasis
-Acute postop hypovolemia with subsequent hypervolemia
-Acute postop urinary retention - Jarvis placed back on 11/16
Discussed patient care with: Nursing and Care Team
Subjective
Procedure
S/P median sternotomy/CABG x 3 (CHEMO to LAD, GSV to distal RCA, GSV to OM)/Endoscopic harvest/prep of RLE GSV, by Dr. East, 11/14/24
-
Date of Service: November 16, 2024
Objective Data
-
Lab Results
11/16/24 03:18
11/16/24 03:18
PT 17.0 Sec (11.4-14.6) H 11/14/24 16:33
INR 1.35 11/14/24 16:33
APTT 31.8 Sec (23.4-35.0) 11/14/24 16:33
Vital Signs
Vital Signs
Temp Pulse Resp BP Pulse Ox
98.7 F 89 16 109/58 95
11/16/24 04:00 11/16/24 07:00 11/16/24 07:00 11/16/24 07:00 11/16/24 07:00
CT Intake/Output/Weight
11/15/24 11/16/24 11/16/24
18:59 06:59 18:59
Intake Total 392.0 / 519.8 115.8 / 519.8
Output Total 295 / 1625 950 / 1625 380 / 380
Balance 97.0 / -1105.2 -834.2 / -1105.2 -368 / -368
SaO2: 95
Physical Exam
-
General: Awake and AOx3
Cardiovascular: Regular rate & rhythm and No Murmurs
Respiratory: Decreased Breath Sounds
Sternum: Stable
Incision: Clean, Dry and Intact
Extremities: Other (trace edema b/l)
Abdomen: soft, nontender, nondistended, + bowel sounds
Data Reviewed
-
Lab Results: Results Reviewed
Medications: Active Meds Reviewed
Chest X-Ray: Report Reviewed and Image Reviewed
ECG: Report Reviewed and Image Reviewed
[2024-11-16] MEDS: MAGNESIUM OXIDE 500 MG PO ×2 (08:28→20:20)
[2024-11-16] MEDS: PLAVIX 75 MG PO (08:28)
[2024-11-16] MEDS: PROTONIX 40 MG PO (08:28)
[2024-11-16] MEDS: FEOSOL 325 MG PO (08:28)
[2024-11-16] MEDS: KCL 40 MEQ PO (08:28)
[2024-11-16] MEDS: TOPROL XL 12.5 MG PO ×2 (08:28→13:38)
[2024-11-16] MEDS: NEURONTIN 100 MG PO ×3 (08:28→21:20)
[2024-11-16] MEDS: SENOKOT-S 1 TABLET PO ×2 (08:28→20:20)
[2024-11-16] MEDS: PACERONE 200 MG PO ×3 (08:28→21:19)
[2024-11-16] MEDS: VITAMIN C 500 MG PO (08:29)
[2024-11-16] MEDS: LIDOCAINE 4% PATCH 1 PATCH TOPICAL (08:29)
[2024-11-16] MEDS: LOW STRENGTH ASPIRIN 81 MG PO (08:29)
[2024-11-16] MEDS: BACTROBAN 2% OINTMENT 1 APPLIC NASAL ×2 (08:29→20:20)
[2024-11-16] MEDS: LASIX 40 MG IV (08:29)
[2024-11-16] MEDS: PROSCAR 5 MG PO (08:29)
[2024-11-16] MEDS: NOVOLOG FLEXPEN 4 UNITS SC (08:30)
[2024-11-16 10:13] LABS: Glucose - Point of Care 332 mg/dl (70-99)
--- NOTE | 2024-11-16 10:19 | CON.MD ---
Consultation - Medical
-
Referring Provider:�Dr. Michele Wasserman
Chief Complaint:�CABG
�
History of Present Illness:�79-year-old right-handed male with PMH (as below) presented to [facility] on 11/09/2024 with chest pain nonradiating intermittent over a 12-hour period. Found to have an elevated troponin and EKG concerning for a
STEMI at [place]. He was found to have multiple vessel disease on cardiac cath in setting of diabetes and was transferred to [place] for CABG workup. Noted by cardiology at [place] to have an NSTEMI. 11/14/2024 ISAURA with EF 60%. On 11/14/2024
he had a CABG x [address] Eyal East. Jarvis removed postoperatively but patient required intermittent catheterization and reinsertion of Jarvis for acute urinary retention. Significant leukocytosis postoperatively. Minimal chest and right leg
pain.
Patient notes he had 4 falls in the past 3 months, does not use assistive device in his room. Uses rolling walker to get to the dining crook
Past Medical History:�HTN, HLD, DM II, diverticulitis, GI bleed, duodenal ulcer, hiatal hernia, Smith's esophagus, history of falls, BPH, obesity
Procedure History:�Cardiac catheterization, appendectomy, tonsillectomy, TURP
Family History:�Denies
�
Social History:�
Functional Level Premorbidly:�Modified independent with all activities�using rolling walker out of his apartment.
Functional Level Currently:�Dependent for lower extremity self-care and toileting. Mod assist toilet transfer, max assist bed mobility. Ambulating 20 feet with min assist x 2 with rolling walker.
�
Tobacco:�Former smoker quit 43 years ago with a [id number] history
Alcohol:�Denies�
Drug use:�Denies�
�
Lives with:�Alone
24-hour assistance available:�No
Number of floors:�1�apartment in a intermediate community with elevator access
# steps to enter:�0
Driving:�No
Occupation:�Retired
�
�
Allergies:�
Allergy/AdvReac Type Severity Reaction Status Date / Time
Penicillins Allergy Hives Verified 11/09/24 18:42
[id number] Reductase Allergy Hives Verified 11/09/24 17:34
Inhibitor
�
Review of Systems:�
Constitutional: (x) abNormal _fatigue
Eye: (x) Normal _
Ear/Nose/Throat: (x) Normal _
Respiratory: (x) Normal _
Cardiovascular: (x) abNormal _heart attack with CABG
Gastrointestinal: (x) Normal _
Genitourinary: (x) abNormal _difficulty voiding with Jarvis catheter in
Musculoskeletal: (x) abNormal _General Fatigue, recent falls at home
Integumentary: (x) Normal _
Neurologic: (x) Normal _
Psychiatric: (x) Normal _
Endocrine: (x) Normal _
Hematologic/Lymphatic: (x) Normal _
Allergic/Immunologic: (x) Normal _
�
Medications:�
Active Current Visit Medication List
Category Date Time Status
0.9% Sodium Chloride 500 ml [Nss] 500 ml Med 11/14/24 15:42 Active
IV CORDIS
Acetaminophen [Tylenol/Feverall] Med 11/14/24 15:42 Active
650 mg RECTAL Q4HPRN PRN
Acetaminophen [Tylenol] Med 11/14/24 15:42 Active
1,000 mg PO TID@0600,1400,2200
Acetaminophen [Tylenol] Med 11/14/24 15:42 Active
650 mg PO Q4HPRN PRN
Albuterol Nebs [Ventolin Nebules] Med 11/14/24 15:42 Active
2.5 mg INH R Q4HPRN PRN
Albuterol [ProAIR HFA INHALER] Med 11/14/24 15:42 Active
2 puff INH R Q4HPRN PRN
Amiodarone [Pacerone] Med 11/14/24 16:00 Active
200 mg PO TID
Ascorbic Acid [Vitamin C] Med 11/15/24 08:00 Active
500 mg PO DAILY
Aspirin Med 11/15/24 08:00 Active
300 mg RECTAL DAILYPRN PRN
Aspirin Chewable [Low Strength Aspirin] Med 11/15/24 08:00 Active
81 mg PO DAILY
Bisacodyl [Dulcolax] Med 11/14/24 15:42 Active
10 mg RECTAL DAILYPRN PRN
Clopidogrel Bisulfate [Plavix] Med 11/15/24 08:00 Active
75 mg PO DAILY
Cyclobenzaprine HCl [Flexeril] Med 11/14/24 15:42 Active
5 mg PO Q8HPRN PRN
Dextrose 50%-Water [Dextrose 50% Syringe] Med 11/14/24 15:42 Active
12.5 grams IV Q66VUMB PRN
Docusate W/Senna [Senokot-S] Med 11/14/24 20:00 Active
1 tablet PO Q12
Ezetimibe [Zetia] Med 11/09/24 22:00 Active
10 mg PO HS
Ferrous Sulfate [Feosol] Med 11/15/24 08:00 Active
325 mg PO DAILY
Finasteride [Proscar] Med 11/15/24 08:00 Active
5 mg PO DAILY
Flush (0.9% Sodium Chloride) [Flush (Nss)] Med 11/14/24 23:00 Active
See Dose Instructions IV PER PROTOCOL
Gabapentin [Neurontin] Med 11/14/24 16:00 Active
100 mg PO TID
HYDROmorphone [Dilaudid] Med 11/14/24 15:42 Active
0.25 mg IV Q3HPRN PRN
HYDROmorphone [Dilaudid] Med 11/14/24 15:42 Active
0.5 mg IV Q3HPRN PRN
Insulin Aspart Pen [Novolog Flexpen] Med 11/14/24 16:30 Active
See Protocol SC AC
Lidocaine [Lidocaine 4% Patch] Med 11/15/24 08:00 Active
1 patch TOPICAL DAILY
Magnesium Hydroxide [Milk of Magnesia] Med 11/14/24 15:42 Active
30 ml PO BIDPRN PRN
Magnesium Oxide Med 11/15/24 08:00 Active
500 mg PO BID
Metoprolol Xl [Toprol Xl] Med 11/15/24 20:00 Active
12.5 mg PO BID
Mupirocin [Bactroban 2% Ointment] Med 11/14/24 20:00 Active
See Dose Instructions NASAL Q12
Ondansetron Injectable [Zofran] Med 11/14/24 15:42 Active
4 mg IV Q8HPRN PRN
Oxycodone [Roxicodone] Med 11/14/24 15:42 Active
2.5 mg PO Q4HPRN PRN
Oxycodone [Roxicodone] Med 11/14/24 15:42 Active
5 mg PO Q4HPRN PRN
Pantoprazole [Protonix] Med 11/15/24 08:00 Active
40 mg PO DAILY
Reg Insulin 100 Units/100 ml [Novolin R Insulin Med 11/14/24 15:42 Active
Infusion]
100 units in 100 ml IV PER PROTOCOL
Remove Patch [Remove Lidocaine Patch] Med 11/15/24 20:00 Active
1 patch REMOVE DAILY@1999
Tamsulosin [Flomax] Med 11/15/24 22:00 Active
0.4 mg PO HS
�
Vitals:�
Temp Pulse Resp BP Pulse Ox
98.7 F 89 16 109/58 95
11/16/24 04:00 11/16/24 07:00 11/16/24 07:00 11/16/24 07:00 11/16/24 08:13
Height 5 ft 4 in
Actual Weight 84.5 kg
Body Mass Index (BMI) 32.0
�
Physical Exam:�
General Appearance/Observation: Well-developed, well-nourished male in no apparent distress.�
Pain/Comfort Assessment: Chest painMood/Affect: Appropriate�
�
Integumentary/Operative Site:�Aquacel over sternal incision with scant drainage. Chest tube sites just covered with gauze. Right medial calf incision with glue clean dry and intact.
�
Eyes: Conjunctiva/Lids: normal���� Pupils: pupils equal round and reactive to light and Accommodation�
Ears/Nose/Throat: oral mucosa moist,� throat clear.������������ Lips/Teeth/Gums: normal�
Neck: No muscle spasm or tenderness�
Cardiovascular: Heart: regular, no murmur�
Pulses: dorsalis pedis 2+ bilaterally�
Respiratory: Respiratory Effort/Chest Expansion: normal������� Auscultation: Clear to auscultation bilaterally�
Gastrointestinal: abdomen not tender, no distension, normal abdominal bowel sounds
Genitourinary: No Jarvis�
Rectal Exam: Deferred�
Extremities:�Edema: None�Cyanosis: None�Trophic�changes: None
�
Neurology Exam:
Orientation: Alert, Oriented to self, Time, Place�
Memory: Intact for recent medical concerns
Comprehension: Intact
Two step command: Intact
Cranial Nerves:
�� CNII:�Pupillary light reflex: Intact����Visual Field: Intact
�� CN III, IV, : Extraocular muscles: Intact�
�� CN V:�Facial Sensation�at�Forehead: Intact,�Maxilla: Intact,�Mandible: Intact
�� CN VII:�Facial movement: Symmetric
�� CN VIII:�Hearing: Normal
�� CN IX/X:�Speech & swallow: Normal,�Position of Uvula: Midline
�� CN XI:�Shoulder shrug: Symmetric
�� CN XII:�Tongue protrusion: Midline
Sensory:
�� Light touch: Intact in bilateral upper and lower extremities
�
Reflexes:
�� Biceps: 2+ bilaterally
�� Brachioradialis: 2+ bilaterally
�� Triceps: 2+ bilaterally
�� Patellar: 2+ bilaterally
�� Achilles: 2+ bilaterally
�� Babinski: Down going bilaterally
�� Clonus: None
�� Danny: Negative bilaterally�
Cerebellar: Dysmetria/Ataxia: None�
Musculoskeletal: Motor: (Manual muscle scale 0-5)�
Muscle SA EF WE EE FF FA HF KE DF EHL PF
Right� >4 >4 5 5 >4 5 4 5 5 5 5
Left >4 >4 5 5 >4 5 4 5 5 5 5
�
Tone: Normal in all extremities�
Range of Motion: Passively within normal limits in all extremities�
�
Lab Results
Laboratory Data
11/16/24 03:18
11/16/24 03:18
PT 17.0 Sec (11.4-14.6) H 11/14/24 16:33
INR 1.35 11/14/24 16:33
APTT 31.8 Sec (23.4-35.0) 11/14/24 16:33
Total Bilirubin 0.5 mg/dl (0.2-1.3) 11/10/24 04:16
Direct Bilirubin 0.4 mg/dl (0.0-0.4) 11/10/24 04:16
AST 31 U/L (17-59) 11/10/24 04:16
ALT 16 U/L (0-50) 11/10/24 04:16
Alkaline Phosphatase 97 U/L (38-126) 11/10/24 04:16
Total Protein 7.1 g/dl (6.3-8.2) 11/10/24 04:16
Albumin 4.4 g/dl (3.5-5.0) 11/10/24 04:16
�
Diagnostic Results:�as per HPI�
�
Assessment
79 y/o M PMH (HTN, HLD, DM II, diverticulitis, GI bleed, duodenal ulcer, hiatal hernia, Smith's esophagus, history of falls, BPH, obesity) with 11/09/2024 NSTEMI s/p 11/14/2024 CABG x [address] Eyal East with postoperative anemia and urinary
retention resulting in ADL and ambulatory dysfunction.
Plan�
PM&R�PT/OT to increase independence with ADLs, improve balance, coordination, endurance, strength, mobility, community reintegration, decreased burden of care on others and family education.�
NSTEMI S/P CABG x 3: Sternal precautions.� Aspirin, Zetia (statin allergy), amiodarone, BP control.� Monitor incision, pain control.��
HTN: continue medications, monitor closely�
HLD: Zetia (statin allergy)�
Coronary artery disease�: Aspirin, Zetia (statin allergy), beta-evelyn�
DM II: Accu-Cheks, insulin sliding scale, currently with insulin infusion.� Should be stable with oral medications/insulin prior to transfer to rehab
Acute blood loss anemia: Iron. Monitor.�
�
Psych: Psychology consult.� Monitor mood, adjust medications as needed.�
Skin: monitor for pressure sores/rashes/lesions.�
Pain: acetaminophen, oxycodone, or Flexeril as needed.� Gabapentin 100 mg 3 times daily. Stop IV Dilaudid. Lidocaine patch.
Bowel: Colace and Senna, PRN bisacodyl.�
Bladder: BPH on Flomax and Proscar. Currently with Jarvis. Consider repeat void trial in rehab with time void, PVRs, PRN straight cath.�
History of Smith's esophagus/ulcers: Pantoprazole�
DVT Prophylaxis: Mechanical, please comment on when patient can start chemoprophylaxis.
Pulmonary: Incentive spirometry, albuterol as needed
FEN: Ascorbic acid supplement
Obesity: Continue to vp & general counsel patient about diet adjustments to control obesity. Body habitus and increased force to move body and extremities causes further difficulty with functional tasks.�
Safety: Continue to reinforce assistance with all transfers.�
Code Status:� Full code
Dispo�(date/plan/equipment needs): Home with family care.� Social history reviewed.�
Functional and Medical Goals:�Modified Independent with ADL�s, ambulation, transfers�
Discharge Destination:�Acute inpatient rehabilitation
Summary of recommendations:
-�Discharge Destination:�Acute inpatient rehabilitation
DVT Prophylaxis: please comment on when patient can start chemoprophylaxis.
NSTEMI S/P CABG x 3: Sternal precautions.� Aspirin, Zetia (statin allergy), amiodarone, BP control.� Monitor incision, pain control.��
Coronary artery disease�: Aspirin, Zetia (statin allergy), beta-evelyn�
DM II: Accu-Cheks, insulin sliding scale, Should be stable with oral medications/insulin prior to transfer to rehab.�
�
Thank you for allowing me to care for your patient. Please contact me with any questions or concerns.
--- NOTE | 2024-11-16 10:57 | PTCARENOTE ---
assumed care of pt from previous shift RN, sinus rhythm on tele, VSS. + peripheral pulses, no edema noted. Lungs diminished, coughing and deep breathing encouraged. +bs, tolerated PO intake. Jarvis catheter draining yellow. CT x2 w minimal amount of
drainage. Surgical sites stable. Right IJ cordis w KVO and insulin infusing. Pt denies pain. Tolerated PT. Plan of care reviewed and questions encouraged.
[2024-11-16] MEDS: FARXIGA 10 MG PO (11:52)
[2024-11-16] MEDS: LANTUS 0.25 UNITS SC (11:52)
[2024-11-16] MEDS: JANUVIA 100 MG PO (11:52)
[2024-11-16 12:01] LABS: Glucose - Point of Care 203 mg/dl (70-99)
--- NOTE | 2024-11-16 12:33 | PN.DE.MGMTRT ---
Insulin Management
- -
11/16/2024 Diabetes Management Consult Follow up
Patient admitted 11/10, transferred from [facility] with CP, elevated troponin, Nstemi. PMH type 2 diabetes, USA, HTN, HLD, diverticulitis, hiatal hernia, Barretts esophagus, duodenal ulcer, BPH, recent fall. Prior to admission was taking Farxiga
5 mg daily, Januvia 100 mg daily, lantus 40 units BID and novolog ss. A1C on admission 8.5%, cr .9, eGFR > 60 today.
Patient is POD 2 s/p CABG x 3.
Awake alert and oriented, able to discuss diabetes care. Discussed his A1C of 8.5% which he agrees is too high. He follows with his doctor , Jodie. He states he often is as low as 80 when he wakes up in the morning. Discussed reducing hs lantus.
He states he has a glucose monitor but would like a sensor. Will order at discharge.
Will transition from IV insulin, 25 units lantus now then drip off in two hours. Will start AC novolog 5 units with moderate corrective, farxiga 10 mg daily, Januvia 100 mg daily, first dose now. Continue glycemic protocol insulin infusion for 2
hours then stop. Will resume HS lantus 40 units and check 3AM glucose.
Discussed with pharmacy and nurse, will follow.
Diabetes History
- -
Type of Diabetes: 2 requiring insulin
Pre-Admission Diabetes Regimen
11/16/24
03:18
Creatinine 0.9
Lab Results
Hemoglobin A1c 8.5 % (4.0-5.6) H 11/09/24 17:41
Insulin Pump Settings
IP Diabetes Regimen
11/15/24 11/15/24 11/15/24
12:50 15:01 15:58
Glucose
POC Glucose 89 242 H 211 H
11/15/24 11/15/24 11/15/24
17:03 18:59 21:16
Glucose
POC Glucose 168 H 138 H 76
11/15/24 11/15/24 11/16/24
22:07 23:19 00:17
Glucose
POC Glucose 101 H 142 H 137 H
11/16/24 11/16/24 11/16/24
01:08 03:18 04:54
Glucose 126 H
POC Glucose 140 H 135 H 164 H
11/16/24 11/16/24 11/16/24
07:09 10:12 11:51
Glucose
POC Glucose 134 H 332 H 203 H
Meal type: Breakfast
Patient Education
--- NOTE | 2024-11-16 12:44 | PTCARENOTE ---
CTs removed as ordered without incident.
--- NOTE | 2024-11-16 12:56 | CM ---
Reviewed chart. Telephone call to [facility] Liaison to check on the referral. He is approved for admission pending bed availability. Tele[phone call to [facility] to make the referral. Currently [facility] does
not have any beds. Sent the referral. Waiting to see if [facility] will have a bed available on Wednesday. Met with Arcenio Arash to review bed at [facility] pending bed availability. Medical work-up in progress. The discharge
plan is to go to [facility] if bed available when medically stable.
[2024-11-16] MEDS: NOVOLOG FLEXPEN-MODERATE RESISTANCE 1 UNITS SC (13:02)
[2024-11-16] MEDS: NOVOLOG FLEXPEN 5 UNITS SC ×2 (13:02→17:04)
[2024-11-16] MEDS: NOVOLOG FLEXPEN SC (13:05)
[2024-11-16 13:13] LABS: Glucose - Point of Care 152 mg/dl (70-99)
[2024-11-16] MEDS: TYLENOL PO (14:42)
[2024-11-16] MEDS: NSS IV (16:03)
--- NOTE | 2024-11-16 16:06 | SUR.OPER ---
VSS, sinus rhythm on tele maintained. pain well controlled.
--- NOTE | 2024-11-16 16:41 | W.PN.CARDCBS ---
Addendum entered and electronically signed by Glenn Kang MD 11/16/24 19:14:
71-year-old man who uses walker at baseline, developed ACS November 08, multivessel disease on cardiac catheterization November 09, status post CABG November 14
PMH: Diabetes, hypertension, hyperlipidemia, recent duodenal ulcer September 2024
125/66, pulse 110, resp rate 16, some distress with movement, pericardial friction rub, lungs relatively clear, regular rate and rhythm without murmurs, relatively tachycardic, abdomen benign extremities without edema incision intact
Chest x-ray still with chest tubes as of this morning, lungs relatively clear
ECG yesterday: Normal sinus rhythm, ST elevation consistent with pericarditis, right bundle branch block resolved
White count 18.5, hemoglobin 8.7, BUN and creatinine 24 and 0.9
Telemetry: No atrial fibrillation
Impression: See below
Plan:
Overall doing well postop day 2.
At present no atrial fibrillation.
Back on [facility], metoprolol ER is 25 twice daily, on aspirin, clopidogrel and the other room
Currently not on a statin, on ezetimibe, as outpatient should probably receive PCSK9 inhibitor or small interfering RNA, possibly bempedoic acid. This can be arranged through [facility] cardiology.
Original Note:
Today's Communication / Plan
-
CTs removed today
Impression / Plan
-
PCP: Dr. Amando Feliciano
Cardiology: None prior to admission, seen initially by [facility] and then cathed by Dr. Dyllan Fox
Impression:
Admitted to [facility] with chest pain and ACS 11/08/2024
Transferred to for evaluation of MV CAD 11/09/2024
NSTEMI, peak troponin T at [facility] 414
Multivessel CAD by cath 11/09/2024
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
be good surgical target, OM�2 moderate diffuse nonobstructive disease up to 40%, RCA appears to be culprit vessel with complex preocclusive 95% stenosis with clot by cath 11/09/2024
s/p CABG x3 (STEWART to LAD, GSV to distal RCA, GSV to OM) 11/14/24
Recent admission to [facility] for hematemesis and superficial duodenal ulcers 09/2024
Recent admission to [facility] for diverticulitis 10/08/2024 until 10/13/2024
DM2
HTN
Hyperlipidemia
Echo 11/08/2024: [facility] study, EF 55 to 60%, normal RV size and function, no , small anterior pericardial effusion with prominent pericardial fat pad
Plan:
-CTs removed 11/16/24
-Patient was a NSTEMI at [facility] prior to transfer and is new to aspirin and Plavix
-Outpatient dose of Toprol-XL 50 mg daily has been reduced to 12.5 mg twice daily
-Outpatient dose of lisinopril 20 mg daily remains on hold
-Outpatient dose of the Jardiance 5 mg daily remains on hold
-LDL 93. Patient is statin intolerant due to history of rash with statins. Outpatient dose of Zetia 10 mg daily can continued. Patient can follow-up with [facility] cardiology about possible PCSK9 inhibitors as an outpatient
-Patient being evaluated for [place].
HPI: Patient presents to as a transfer from [facility] for evaluation of MV CAD and cardiology has been consulted. Patient was admitted to [facility] 09/2024 with hematemesis and was found to have duodenal ulcers on EGD and evidence of Smith's esophagus at
that time. Patient then had another admission to [facility] but this time for diverticulitis from 10/08/2024 until 10/13/2024 and afterwards went to [facility] and was discharged to home 11/06/2024. Patient says that he was in his apartment and early
yesterday morning at about 3 AM awoke with a pressing sensation on his chest and paresthesias. He ambulated to the bathroom and then after using the bathroom had a fall and called for help. Despite help of bystanders he had 2 more falls before he
finally went to bed and then awoke with ongoing chest pain and was taken to [facility] ER. He was admitted and on ECG there was concern for inferior ST changes and his initial troponin was positive and ultimately peaked at 414 consistent with NSTEMI.
Patient was given Plavix 300 mg p.o. x 1 on 11/08/2024 and then had cardiac catheterization today that revealed MV CAD as noted above. Patient denies chest pain currently and remains on heparin drip. He was transferred to for evaluation for
possible CABG.
Progress Note - Television Announcer
Subjective
Date of Service: November 16, 2024
Objective
Labs:
11/16/24 03:18
11/16/24 03:18
Labs
Hgb 8.7 g/dL (13.0-18.0) L 11/16/24 03:18
Hct 26.2 % (39.0-52.0) L 11/16/24 03:18
Plt Count 270 10^3/uL (130-400) 11/16/24 03:18
PT 17.0 Sec (11.4-14.6) H 11/14/24 16:33
INR 1.35 11/14/24 16:33
APTT 31.8 Sec (23.4-35.0) 11/14/24 16:33
Sodium 134 mmol/L (135-145) L 11/16/24 03:18
Potassium 4.2 mmol/L (3.5-5.1) 11/16/24 03:18
BUN 24 mg/dl (9-20) H 11/16/24 03:18
Creatinine 0.9 mg/dL (0.7-1.3) 11/16/24 03:18
Glucose 126 mg/dl (70-99) H 11/16/24 03:18
Vital Signs and I&O:
Vital Signs
Temp Pulse Resp BP Pulse Ox
98.2 F 92 16 129/57 94
11/16/24 16:03 11/16/24 16:03 11/16/24 16:03 11/16/24 16:03 11/16/24 16:03
Vital Signs
Temp Pulse Resp BP Pulse Ox
98.2 F 92 16 129/57 94
11/16/24 16:03 11/16/24 16:03 11/16/24 16:03 11/16/24 16:03 11/16/24 16:03
Intake & Output
11/14/24 11/15/24 11/16/24 11/17/24
06:59 06:59 06:59 06:59
Intake Total 2615 / 2615 394.1 / 406.4 507.8 / 519.8 155 / 155
Output Total 650 / 650 1855 / 1950 1245 / 1625 2820 / 2820
Balance 1965 / 1965 -1460.9 / -1543.6 -737.2 / -1105.2 -2665 / -2665
[2024-11-16] MEDS: NOVOLOG FLEXPEN-MODERATE RESISTANCE 3 UNITS SC (17:05)
[2024-11-16 17:08] LABS: Glucose - Point of Care 214 mg/dl (70-99)
[2024-11-16] MEDS: TOPROL XL 25 MG PO (20:21)
--- NOTE | 2024-11-16 20:30 | PTCARENOTE ---
Received pt from [facility]. Walking rounds completed. Pt assessment completed in bed. Pt is AAOx4, no neuro deficits noted. NSR on monitor. HR 80's, B/P 114/62. pulses palpable, - edema. Lungs clear, diminished in bases. POX 93% RA. I/S encouraged.
Normal BS, abdomen soft, round, non-tender to touch. Jarvis intact, draining clear, yellow urine WNL. Sternal Aquacel C/D/I, C/T dressings C/D/I, R Leg incision approximated, surgical flue present. R IJ cordis intact, to KVO. R forearm PVA 20g.
Discussed plan of care with pt. Pt agrees with plan.
[2024-11-16] MEDS: ZETIA 10 MG PO (21:18)
[2024-11-16 21:19] LABS: Glucose - Point of Care 216 mg/dl (70-99)
[2024-11-16] MEDS: FLOMAX 0.4 MG PO (21:20)
[2024-11-16] MEDS: LANTUS 0.35 UNITS SC (21:23)
--- NOTE | 2024-11-16 23:15 | PTCARENOTE ---
VSS. Pt NSR on monitor. HR 78, B/P 118/64. Discussed plan of care with pt. Pt agrees with plan. Pt resting in bed. Will continue to assess pt needs.
[2024-11-17] VITALS (15 sets, daily range): BP systolic 91–118; BP diastolic 52–91; PULSE 87–92; O2SAT 94–99; BMI 31.3
--- NOTE | 2024-11-17 03:32 | W.PN.CT ---
Today's Communication / Plan
-
-pod #3
-no issues overnight
-diuresed well with 40 iv Lasix 11/16 (UO over 5000 in 24 hrs)
-Jarvis in for urinary retention
-continue PT/OT
-hx falls. Plans for d/c to [place] rehab when ready
-appreciate everyone's input
Assessment / Plan
-
Assessment:
-S/P median sternotomy/CABG x 3 (CHEMO to LAD, GSV to distal RCA, GSV to OM)/Endoscopic harvest/prep of RLE GSV, by Dr. East, 11/14/24, pod#3
-Severe 3v CAD
-NSTEMI (high-sensitivity trop of 414 @ [facility])
-USA
-Plavix loaded, 11/08/24
-LVEF 60% preop, hyperdynamic @ 70% postop, per intraop ISAURA
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
-Mild TR
-HTN
-HLD (statin intolerance)
-T2DM (on insulin, hgb A1C 8.5)
-Class 1 obesity (BMI 31.1)
-Recent GI bleed (Duodenal ulcer), 09/2024
-Diverticulitis, 10/08/24
-Hiatal hernia
-Barrettes esophagus
-Fatty liver, per CT 11/10/24
-Mild-mod emphysema, per CT 11/10/24
-Mild bronchiectasis, per CT 11/10/24
-Mild interstitial lung disease, per CT 11/10/24
-Recent hx of several falls/Ambulatory dysfunction, uses walker
-BPH (on Flomax and finasteride)
-S/P appendectomy
-Acute postop blood loss/Anemia (stable without blood transfusion)
-Acute postop atelectasis
-Acute postop hypovolemia with subsequent hypervolemia
-Acute postop urinary retention - Jarvis placed back on 11/16
Discussed patient care with: Nursing and Care Team
Subjective
Procedure
S/P median sternotomy/CABG x 3 (CHEMO to LAD, GSV to distal RCA, GSV to OM)/Endoscopic harvest/prep of RLE GSV, by Dr. East, 11/14/24
-
Date of Service: November 17, 2024
Objective Data
-
PT 17.0 Sec (11.4-14.6) H 11/14/24 16:33
INR 1.35 11/14/24 16:33
APTT 31.8 Sec (23.4-35.0) 11/14/24 16:33
Vital Signs
Vital Signs
Temp Pulse Resp BP Pulse Ox
98.7 F 77 16 102/54 93
11/16/24 23:27 11/16/24 23:24 11/16/24 23:27 11/16/24 23:24 11/16/24 23:24
CT Intake/Output/Weight
11/16/24 11/16/24 11/17/24
06:59 18:59 06:59
Intake Total 115.8 / 519.8 165 / 205 40 / 205
Output Total 950 / 1625 3820 / 4495 675 / 4495
Balance -834.2 / -1105.2 -3655 / -4290 -635 / -4290
SaO2: 93
Physical Exam
-
General: Awake and AOx3
Cardiovascular: Regular rate & rhythm, No Murmurs and No Rub
Respiratory: Clear
Sternum: Stable
Incision: Clean, Dry and Intact
Extremities: No Edema
Data Reviewed
-
Lab Results: Results Reviewed
Medications: Active Meds Reviewed
Chest X-Ray: Report Reviewed and Image Reviewed
ECG: Report Reviewed and Image Reviewed
--- NOTE | 2024-11-17 03:46 | PTCARENOTE ---
VSS. NSR on monitor. HR 78, B/P 101/61. Morning labs obtain. Pt resting in bed. Will continue to monitor pt needs.
[2024-11-17 04:30] LABS: Hematocrit 27.4 % (39.0-52.0); Mean Corp Hgb Conc. 32.8 g/dL (33.0-37.0); Mean Corpuscular Hgb 29.1 pg (27.0-31.0); Mean Corpuscular Volume 88.7 fL (80.0-94.0); Mean Platelet Volume 9.6 fL (7.4-10.4); Platelet Count 306 10^3/uL (130-400); Red Blood Cell Count 3.09 10^6/uL (4.70-6.10); Red Cell Dist. Width 14.5 % (11.5-14.5); White Blood Cell Count 17.5 10^3/uL (4.8-10.8)
[2024-11-17 04:58] LABS: Blood Urea Nitrogen 23 mg/dl (9-20); Calcium 8.6 mg/dl (8.4-10.2); Carbon Dioxide 31 mmol/L (22-30); Chloride 99 mmol/L (98-107); Estimated Creatinine Clearance 75 ml/min; Glucose 110 mg/dl (70-99); Magnesium 2.2 mg/dl (1.6-2.3); Sodium 136 mmol/L (135-145); eGFR > 60.00
[2024-11-17] MEDS: TYLENOL 1000 MG PO ×3 (06:18→23:03)
--- NOTE | 2024-11-17 07:44 | PN.DE.MGMTRT ---
Insulin Management
- -
11/17/2024 Diabetes Management Follow up
Patient admitted 11/10, transferred from [facility] with CP, elevated troponin, NSTEMI.
PMH: T2DM, USA, HTN, HLD, diverticulitis, hiatal hernia, Barrettes esophagus, duodenal ulcer, BPH, recent fall.
Prior to admission was taking Farxiga 5 mg daily, Januvia 100 mg daily, Lantus 40 units BID and NovoLog ss. A1C on admission 8.5%, cr .9, eGFR > 60 today. Discussed his A1C of 8.5% which he agrees is too high. He follows with his doctor , Jodie.
He states he often is as low as 80 when he wakes up in the morning. Discussed reducing hs Lantus. He states he has a glucose monitor but would like a sensor. Will order at discharge.
Patient is POD # 3 s/p CABG x 3. Doing well, Awake alert and oriented, able to discuss diabetes care.
Transitioned off IV insulin, received 25 units Lantus Glucose range 152 to 214 after transitioning off drip.
Will continue current regimen and closely assess for need to adjust insulin doses.
Cont AC NovoLog 5 units with moderate corrective, Farxiga 10 mg daily, Januvia 100 mg daily, Lantus 40 units in AM and 35 units @ HS
Will continue to follow. Provided script for CGM- Dexcom G6 per pt's request, script left in pt's chart.
Diabetes History
- -
Type of Diabetes: 2 requiring insulin
Pre-Admission Diabetes Regimen
11/17/24
04:17
Creatinine 0.8
Lab Results
Hemoglobin A1c 8.5 % (4.0-5.6) H 11/09/24 17:41
Insulin Pump Settings
IP Diabetes Regimen
11/16/24 11/16/24 11/16/24
10:12 11:51 13:01
Glucose
POC Glucose 332 H 203 H 152 H
11/16/24 11/16/2425
17:03 21:18 04:17
Glucose 110 H
POC Glucose 214 H 216 H
Meal type: Breakfast
Patient Education
[2024-11-17 08:01] LABS: Glucose - Point of Care 156 mg/dl (70-99)
[2024-11-17] MEDS: NOVOLOG FLEXPEN 5 UNITS SC ×3 (08:01→17:28)
[2024-11-17] MEDS: NOVOLOG FLEXPEN-MODERATE RESISTANCE 1 UNITS SC ×3 (08:01→17:27)
[2024-11-17] MEDS: KCL 40 MEQ PO (09:18)
[2024-11-17] MEDS: VITAMIN C 500 MG PO (09:18)
[2024-11-17] MEDS: PROSCAR 5 MG PO (09:18)
[2024-11-17] MEDS: LOW STRENGTH ASPIRIN 81 MG PO (09:18)
[2024-11-17] MEDS: JANUVIA 100 MG PO (09:18)
[2024-11-17] MEDS: SENOKOT-S 1 TABLET PO ×2 (09:18→20:00)
[2024-11-17] MEDS: FARXIGA 10 MG PO (09:19)
[2024-11-17] MEDS: FEOSOL 325 MG PO (09:19)
[2024-11-17] MEDS: PROTONIX 40 MG PO (09:19)
[2024-11-17] MEDS: MAGNESIUM OXIDE 500 MG PO ×2 (09:19→20:00)
[2024-11-17] MEDS: TOPROL XL 25 MG PO (09:19)
[2024-11-17] MEDS: NEURONTIN 100 MG PO ×3 (09:20→23:03)
[2024-11-17] MEDS: PLAVIX 75 MG PO (09:20)
[2024-11-17] MEDS: LASIX 40 MG IV (09:21)
[2024-11-17] MEDS: LANTUS 0.4 UNITS SC (09:24)
[2024-11-17] MEDS: PACERONE 200 MG PO ×3 (09:24→23:03)
[2024-11-17] MEDS: ROXICODONE 2.5 MG PO (09:25)
--- NOTE | 2024-11-17 12:33 | CM ---
Reviewed chart. Telephone call to [facility] [place] [facility] Liaison to check on [facility] availability[facility]. The report number for [facility] [place] [facility] is ([phone]) Discharge
instructions and continuum of care need to go with him. Met with Mr. Antoine to review discharge plans. [facility] [place] [facility] [facility]. He is agreeable with going to [facility] [place] [facility]. Medical work-up in
progress. The discharge plan is to go to [facility] [place] [facility] on Wednesday11/18/24 if medically stable.
[2024-11-17] MEDS: LIDOCAINE 4% PATCH TOPICAL (13:04)
--- NOTE | 2024-11-17 13:05 | PTCARENOTE ---
Rec'd pt this shift awake and alert sitting in chair. Pt NSR on monitor. RA, lungs clear. Pt with RT IJ cordis and hagen catheter. AM meds given. Hagen cath d/c'd. Pt incontinent of large amount of urine. Purwick placed. See worklist for VS/I and O
assessments.
[2024-11-17 13:20] LABS: Glucose - Point of Care 170 mg/dl (70-99)
[2024-11-17] MEDS: BACTROBAN 2% OINTMENT 1 APPLIC NASAL ×2 (14:23→19:30)
[2024-11-17] MEDS: NSS IV (15:12)
[2024-11-17 17:12] LABS: Glucose - Point of Care 163 mg/dl (70-99)
[2024-11-17] MEDS: TOPROL XL PO (20:00)
--- NOTE | 2024-11-17 20:00 | PTCARENOTE ---
Assumed care of the patient at 1900. Patient in bed, comfortable, no complaints of pain, AOx3. NSR on telemetry, heart tones audible, + pulses, trace lower extremity edema, metoprolol held for Bp 105/54 per CVNP Paulina. Lungs diminished at the bases,
satting 95% on RA. Abdomen SNT, hyperactive BS, no c/o nausea, appetite good. Patient incontinent, encouraged to call for assistance with the urinal PRN, education provided regarding perineal skin integrity. All surgical sites CDI, MASD in groin.
PIV x1. Patient updated on POC, in agreement, call peng within reach, assessment of needs ongoing. See nursing work list for additional intervention details.
[2024-11-17 22:44] LABS: Glucose - Point of Care 122 mg/dl (70-99)
[2024-11-17] MEDS: FLOMAX 0.4 MG PO (23:03)
[2024-11-17] MEDS: ZETIA 10 MG PO (23:03)
[2024-11-17] MEDS: LANTUS 0.35 UNITS SC (23:05)
[2024-11-18] VITALS (7 sets, daily range): BP systolic 97–114; BP diastolic 55–75; BMI 31.3
--- NOTE | 2024-11-18 | PTCARENOTE ---
Assessment unchanged, patient sleeping between care. Voided once, continent. Urinal offered at each care intervention. Assessment of needs ongoing.
--- NOTE | 2024-11-18 02:41 | W.PN.CT ---
Addendum entered and electronically signed by Eyal East MD 11/18/24 09:14:
I saw and examined the patient.
The PA's note was reviewed and I agree with the note.
Comment:
Bry Antoine - POD#4 s/p CABG x 3
Doing well.
OK for [facility] today.
Original Note:
Today's Communication / Plan
-
-pod #4
-no issues overnight
-diuresed well with 40 iv Lasix 11/17
-Incontinent of urine
-continue PT/OT
-hx falls. Plans for d/c to [place] [facility] when ready
Assessment / Plan
-
Assessment:
-S/P median sternotomy/CABG x 3 (CHEMO to LAD, GSV to distal RCA, GSV to OM)/Endoscopic harvest/prep of RLE GSV, by Dr. East, 11/14/24, pod#4
-Severe 3v CAD
-NSTEMI (high-sensitivity trop of 414 @ [facility])
-USA
-Plavix loaded, 11/08/24
-LVEF 60% preop, hyperdynamic @ 70% postop, per intraop ISAURA
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
-Mild TR
-HTN
-HLD (statin intolerance)
-T2DM (on insulin, hgb A1C 8.5)
-Class 1 obesity (BMI 31.1)
-Recent GI bleed (Duodenal ulcer), 09/2024
-Diverticulitis, 10/08/24
-Hiatal hernia
-Barrettes esophagus
-Fatty liver, per CT 11/10/24
-Mild-mod emphysema, per CT 11/10/24
-Mild bronchiectasis, per CT 11/10/24
-Mild interstitial lung disease, per CT 11/10/24
-Recent hx of several falls/Ambulatory dysfunction, uses walker
-BPH (on Flomax and finasteride)
-S/P appendectomy
-Acute postop blood loss/Anemia (stable without blood transfusion)
-Acute postop atelectasis
-Acute postop hypovolemia with subsequent hypervolemia
-Acute postop urinary retention - resolved
Subjective
Procedure
S/P median sternotomy/CABG x 3 (CHEMO to LAD, GSV to distal RCA, GSV to OM)/Endoscopic harvest/prep of RLE GSV, by Dr. East, 11/14/24
-
Date of Service: November 18, 2024
Objective Data
-
Lab Results
11/18/24 04:25
11/18/24 04:25
PT 17.0 Sec (11.4-14.6) H 11/14/24 16:33
INR 1.35 11/14/24 16:33
APTT 31.8 Sec (23.4-35.0) 11/14/24 16:33
Vital Signs
Vital Signs
Temp Pulse Resp BP Pulse Ox
98 F 84 18 113/63 93
11/18/24 00:43 11/18/24 01:00 11/18/24 00:43 11/18/24 00:43 11/18/24 00:43
CT Intake/Output/Weight
11/17/24 11/17/24 11/18/24
06:59 18:59 06:59
Intake Total 40 / 205 750 / 750
Output Total 1550 / 5370 350 / 350
Balance -1510 / -5165 750 / 400 -350 / 400
SaO2: 93
Physical Exam
-
General: Awake and AOx3
Cardiovascular: Regular rate & rhythm
Respiratory: Decreased Breath Sounds
Sternum: Stable
Incision: Clean, Dry and Intact
[2024-11-18 04:49] LABS: Hemoglobin 9.6 g/dL (13.0-18.0); Mean Corp Hgb Conc. 33.1 g/dL (33.0-37.0); Mean Corpuscular Hgb 29.1 pg (27.0-31.0); Mean Corpuscular Volume 87.9 fL (80.0-94.0); Mean Platelet Volume 9.6 fL (7.4-10.4); Platelet Count 374 10^3/uL (130-400); Red Cell Dist. Width 14.2 % (11.5-14.5); White Blood Cell Count 14.7 10^3/uL (4.8-10.8)
[2024-11-18 05:12] LABS: Blood Urea Nitrogen 30 mg/dl (9-20); Calcium 8.6 mg/dl (8.4-10.2); Carbon Dioxide 29 mmol/L (22-30); Chloride 99 mmol/L (98-107); Estimated Creatinine Clearance 66 ml/min; Glucose 101 mg/dl (70-99); Magnesium 2.2 mg/dl (1.6-2.3); Potassium 4.1 mmol/L (3.5-5.1); Sodium 136 mmol/L (135-145); eGFR > 60.00
--- NOTE | 2024-11-18 05:27 | PTCARENOTE ---
Attempted to get pt OOB into the chair. Was able to tolerate standing on the scale for a short period, the c/o lightheadedness. BP stable. Placed back into bed.
[2024-11-18] MEDS: TYLENOL PO (06:17)
[2024-11-18 08:31] LABS: Glucose - Point of Care 111 mg/dl (70-99)
[2024-11-18] MEDS: NOVOLOG FLEXPEN 5 UNITS SC (09:04)
[2024-11-18] MEDS: BACTROBAN 2% OINTMENT 1 APPLIC NASAL (09:07)
[2024-11-18] MEDS: FEOSOL 325 MG PO (09:07)
[2024-11-18] MEDS: NOVOLOG FLEXPEN-MODERATE RESISTANCE SC (09:07)
[2024-11-18] MEDS: PROTONIX 40 MG PO (09:08)
[2024-11-18] MEDS: PROSCAR 5 MG PO (09:08)
[2024-11-18] MEDS: MAGNESIUM OXIDE 500 MG PO (09:08)
[2024-11-18] MEDS: SENOKOT-S 1 TABLET PO (09:08)
[2024-11-18] MEDS: NEURONTIN 100 MG PO (09:08)
[2024-11-18] MEDS: PACERONE 200 MG PO (09:08)
[2024-11-18] MEDS: VITAMIN C 500 MG PO (09:08)
[2024-11-18] MEDS: FARXIGA 10 MG PO (09:08)
[2024-11-18] MEDS: JANUVIA 100 MG PO (09:08)
[2024-11-18] MEDS: TOPROL XL 25 MG PO (09:09)
[2024-11-18] MEDS: LOW STRENGTH ASPIRIN 81 MG PO (09:09)
[2024-11-18] MEDS: PLAVIX 75 MG PO (09:09)
[2024-11-18] MEDS: LIDOCAINE 4% PATCH TOPICAL (09:09)
[2024-11-18] MEDS: LANTUS 0.4 UNITS SC (09:12)
--- NOTE | 2024-11-18 09:30 | PTCARENOTE ---
Received patient for 7a-7p shift. Pt AAOx3, without complaints. NSR on building attendant, VSS. Patient OOB in chair for breakfast, ambulated to bathroom. Blood sugar 111. Medications administered as ordered. IS up to 1500, encouraged, tolerated. Pt
passing gas, needs to have BM. For possible D/c to [facility] today. Instructed pt to call for assistance prior to ambulation. Patient demonstrates use of call peng system, verbalized understanding. Will continue to monitor.
--- NOTE | 2024-11-18 12:03 | W.DCSUMMARY ---
Discharge Summary
Discharge Data
Date of Admission: 11/09/24
Date of Discharge: 11/18/24
-
Pending Results: No
Hospital Course
Primary care physician: Amando Feliciano MD
Outpatient molecular modeler: Dr. Fox
Inpatient consultants: DCA, Pulmonary Intensivists
Procedures:
1. Coronary artery bypass grafting x 3 left internal mammary artery to left anterior descending, saphenous vein graft to obtuse marginal, saphenous vein graft to distal right coronary artery
Primary Diagnosis:
Multivessel coronary artery disease
Secondary Diagnoses:
Expected acute blood loss anemia
Atelectasis
Postop urinary retention
Non-ST elevated myocardial infarction
Hypertension
Hyperlipidemia
Type 2 diabetes, insulin-dependent
Class I obesity
Smith's esophagus
Fatty liver disease
Emphysema
Interstitial lung disease
HPI:
79-year-old male with past medical history of type 2 diabetes, HTN, HLD, recent duodenal ulcers and diverticulitis transferred from [facility] for evaluation of multivessel coronary disease. Of note patient has multiple recent admissions to
[facility] starts on 10/08 when he was found to have diverticulitis and was discharged to a group home facility on 11/06. However patient said on the night of 11/07 patient woke up early in the morning with a pressing sensation on his
chest he ambulated to the bathroom and fell multiple times. He was taken to [facility]'s emergency room where they found inferior ST changes and elevated troponins. He was given 300 mg of Plavix p.o. on 11/08 and was taken to the cardiac
[facility] today on 11/09. Left heart cath revealed multivessel disease and patient was transferred to [facility] for CABG evaluation.
Hospital course: The patient underwent bypass surgery on November 14, [address] Eyal East. Please refer to his separately dictated operative report for complete details. Postoperatively the patient was transferred to the intensive care unit
on Levophed insulin and Precedex drips. He was extubated per protocol that evening. There were no other significant events.
Postoperative day #1: Patient continues to progress in usual postop pathway. Jarvis catheter was removed. Invasive monitoring lines were removed. Morning beta-blockers were held due to hypotension. Jarvis catheter was reinserted overnight for
urinary retention and Flomax was started.
Postoperative day #2: Chest tubes were removed. Patient was gently diuresed with intravenous Lasix. No other new issues.
Postoperative day #3: Jarvis was again removed. Patient now voiding. Patient was evaluated for acute inpatient rehab and accepted for [facility].
Postoperative day #4: Patient cleared for discharge to [facility] for further management.
Discharge Plan
-
Patient Disposition: Acute Rehab Facility
Discharge Diagnosis/Procedures: -Status post median sternotomy/coronary artery bypass grafting x 3 (left internal thoracic artery to left anterior descending, greater saphenous vein to distal right coronary artery, greater saphenous vein to obtuse
marginal)/Endoscopic harvest/prep of right lower extremity greater saphenous vein, by Dr. East, 11/14/24
-Severe three-vessel coronary artery disease
-Non-ST elevated myocardial infarction (high-sensitivity trop of 414 @ [facility])
-Unstable angina
-Plavix loaded, 11/08/24
-LVEF 60% preoperative, hyperdynamic @ 70% postop, per intraoperative transesophageal echocardiogram
-Mild ascending aorta dilation (3.4 cm)
-Mild tricuspid regurgitation
-Hypertension
-Hyperlipidemia (statin intolerance)
-Type 2 diabetes mellitus (on insulin, hemoglobin A1C 8.5)
-Class 1 obesity (body mass index 31.1)
-Recent gastrointestinal bleed (Duodenal ulcer), 09/2024
-Diverticulitis, 10/08/24
-Hiatal hernia
-Barrettes esophagus
-Fatty liver, per CT 11/10/24
-Mild-moderate emphysema, per CT 11/10/24
-Mild bronchiectasis, per CT 11/10/24
-Mild interstitial lung disease, per CT 11/10/24
-Recent history of several falls/Ambulatory dysfunction, uses walker
-Benign prostatic hyperplasia (on Flomax and finasteride)
-Status post appendectomy
-Acute postoperative blood loss/Anemia (stable without blood transfusion)
-Acute postoperative atelectasis
-Acute postoperative hypovolemia with subsequent hypervolemia
-Acute postoperative urinary retention - resolved
Diet: Low Cholesterol, Low Sodium and Diabetic, Carb Controlled
Activity: No strenuous activity
Driving Restrictions: Not until seen by your Dr
Bathing Restrictions: OK to Shower
Other Services: Cardiac Rehab
Specialty Instructions: Weigh Daily- Call MD for wt gain/loss 3 lbs overnight/5 lbs in 1 week
Activity Restrictions/Additional Instructions:
Please call to make appointments for Phase II Cardiac Rehab:
1) [place]
[phone] [facility]
[address] [place] [address]
Referrals:
CT Transitional Care Nurse [Outside] - in one to two days
(
The Cardiothoracic Transitional Care Nurse will call you to set up a visit in 1-2 days.)
Brigette Lacy MD [Non-Admitting Privileges] - 12/28/24 2:10 pm
Amando Feliciano DO [Family Provider] - in four to six weeks (Please make an appointment in four to six weeks. )
Eyal East MD [Active] - 12/12/24 2:00 pm
Prescriptions:
New
oxycodone 5 mg Tablet
5 mg PO Q4HPRN PRN (Reason: moderate pain) Qty: 30 0RF
aspirin 81 mg Tablet,Chewable
81 mg PO DAILY Qty: 0 0RF
clopidogrel 75 mg Tablet
75 mg PO DAILY Qty: 30 2RF
acetaminophen 325 mg Tablet
650 mg PO Q4HPRN PRN (Reason: mild pain,headache,temp >101F ) Qty: 0 0RF
dapagliflozin propanediol 10 mg Tablet
10 mg PO DAILY Qty: 30 2RF
Insulin Glargine Lantus [Lantus] 35 UNITS
Subcutaneous Insulin Syringe [Syringe-Insulin] 0 UNIT
As Directed mls/hr SC HS
Ordered By: Madi Lund PA-C
Last Taken: 11/17/24 23:05 0.35 mls
Insulin Glargine Lantus [Lantus] 40 UNITS
Subcutaneous Insulin Syringe [Syringe-Insulin] 0 UNIT
As Directed mls/hr SC DAILY@0800
Ordered By: Madi Lund PA-C
Last Taken: 11/18/24 09:12 0.4 mls
enoxaparin 40 mg/0.4 mL Syringe
40 mg SC QPM Qty: 5 0RF
metoprolol succinate 25 mg Tablet Extended Release 24 Hr
25 mg PO DAILY Qty: 30 2RF
Continued
insulin aspart U-100 100 unit/mL (3 mL) Insulin Pen
0 sliding scale dose SC BID
mirabegron 50 mg Tablet Extended Release 24 Hr
50 mg PO DAILY
ezetimibe 10 mg Tablet
10 mg PO HS Qty: 0 0RF
finasteride 1 mg Tablet
1 mg PO DAILY Qty: 0 0RF
metoprolol succinate 50 mg Tablet Extended Release 24 Hr
50 mg PO DAILY Qty: 0 0RF
pantoprazole 20 mg Tablet,Delayed Release (Dr/Ec)
40 mg PO DAILY Qty: 0 0RF
sitagliptin phosphate 100 mg Tablet
100 mg PO DAILY Qty: 0 0RF
tamsulosin 0.4 mg Capsule
0.4 mg PO DAILY Qty: 0 0RF
Discontinued
insulin glargine 100 unit/mL Solution
40 unit SC BID
Rx Instructions:
BIDAC
lisinopril 20 mg Tablet
20 mg PO DAILY
gemfibrozil 600 mg Tablet
600 mg PO BID
melatonin 5 mg Tablet
5 mg PO HS PRN (Reason: sleep)
dapagliflozin propanediol 5 mg Tablet
5 mg PO DAILY
Discharge Orders:
Discharge Patient (As Directed); Ordered 11/18/24
Ordered By: Madi Lund
Care Plan Goals
Care Plan Goals:
Problem: Readiness for enhanced knowledge related to diagnosis and treatment plan
Goal: Understand your diagnosis and treatment plan needs, including medications if applicable.
Instructions: Know your diagnosis, underlying causes and treatment plan options, including medications if applicable. Consult with your health care team to learn about your diagnosis and treatment plan, including medications if applicable.
Discharge Date and Time
Print Language: POLISH
[2024-11-18 13:09] LABS: Glucose - Point of Care 327 mg/dl (70-99)
[2024-11-18] MEDS: NOVOLOG FLEXPEN-MODERATE RESISTANCE 7 UNITS SC (13:09)
[2024-11-18] MEDS: NOVOLOG FLEXPEN SC (14:31)
--- NOTE | 2024-11-18 14:44 | PTCARENOTE ---
Patient discharged to [facility] on 3rd floor via wheelchair with RN escort. Medications administered and report called to TOPHER Fuller prior to discharge. Patient's belongings and transfer paperwork transferred with patient on discharge. IV and
telemetry pack removed. Patient transported to room, assisted into bed by transferring and receiving RN.
== END 2024-11-18 14:31 | DRG 236 ==
LOC: CVICU 16:51
PROVIDERS: Anesthesiology; Clinical Nurse Specialist Acute Care; Hospitalist; Nurse Practitioner; Physician Assistant; ADMITTING PHYSICIAN Internal Medicine Cardiovascular Disease; ATTENDING PHYSICIAN Thoracic Surgery (Cardiothoracic Vascular Surgery); CONSULT PHYSICIAN Internal Medicine; CONSULT PHYSICIAN Physical Medicine & Rehabilitation; CONSULT PHYSICIAN Thoracic Surgery (Cardiothoracic Vascular Surgery); FAMILY PHYSICIAN Family Medicine; OTHER PHYSICIAN Internal Medicine Interventional Cardiology
PROC: 5A1221Z Performance of Cardiac Output, Continuous (ICD-10-PCS; 2024-11-14)
PROC: 021109W Bypass Coronary Artery, Two Arteries from Aorta with Autologous Venous Tissue, Open Approach (ICD-10-PCS; 2024-11-14)
PROC: 02100ZC Bypass Coronary Artery, One Artery from Thoracic Artery, Open Approach (ICD-10-PCS; 2024-11-14)
PROC: 06BP4ZZ Excision of Right Saphenous Vein, Percutaneous Endoscopic Approach (ICD-10-PCS; 2024-11-14)
PROC: B24BZZ4 Ultrasonography of Heart with Aorta, Transesophageal (ICD-10-PCS; 2024-11-14)
DX: I21.4 Non-ST elevation (NSTEMI) myocardial infarction (principal); D62 Acute posthemorrhagic anemia; J98.11 Atelectasis; J84.9 Interstitial pulmonary disease, unspecified; E11.9 Type 2 diabetes mellitus without complications; E78.00 Pure hypercholesterolemia, unspecified; I25.10 Atherosclerotic heart disease of native coronary artery without angina pectoris; I10 Essential (primary) hypertension; K44.9 Diaphragmatic hernia without obstruction or gangrene; K22.70 Barrett's esophagus without dysplasia; N40.1 Benign prostatic hyperplasia with lower urinary tract symptoms; R33.9 Retention of urine, unspecified; E66.811 Obesity, class 1; K76.0 Fatty (change of) liver, not elsewhere classified; J43.9 Emphysema, unspecified; I77.810 Thoracic aortic ectasia; I07.1 Rheumatic tricuspid insufficiency; J47.9 Bronchiectasis, uncomplicated; E86.1 Hypovolemia; E87.70 Fluid overload, unspecified; Z68.32 Body mass index [BMI] 32.0-32.9, adult; Z79.4 Long term (current) use of insulin; Z79.899 Other long term (current) drug therapy; Z82.49 Family history of ischemic heart disease and other diseases of the circulatory system; Z87.11 Personal history of peptic ulcer disease; Z87.891 Personal history of nicotine dependence; Z91.81 History of falling
CPT/HCPCS: 71045; 71046; 71250; 80048; 80053; 80061; 81003; 81015; 82248; 82330; 82565; 82805; 82947; 82962; 83036; 83735; 84132; 84302; 84484; 84520; 85014; 85018; 85025; 85027; 85049; 85610; 85730; 86850; 86900; 86901; 86920; 93005; 93312; 93320; 93325; 93880; 94002; 97110; 97116; 97163; 97167; 97530; 97535